=== PATIENT | female | born 1955 | race Caucasian/White ===

== ENCOUNTER 2020-06-05 10:12 | Outpatient (REF) | payer OTHER, SELFPAY ==
--- NOTE | 2020-06-05 | US_ITS ---
EXAMINATION: US PELVIS, COMPLETE CLINICAL INFORMATION: Vaginal bleeding. COMPARISON: None TECHNIQUE: Transabdominal imaging of pelvis was performed. FINDINGS: The uterus is anteverted, normal size and echogenicity measuring 10.8 x 4.7 x 6.7 cm. A regular homogeneous endometrium is identified measuring 1.8 cm. The cervix is normal. Both ovaries are of normal size and echogenicity. The right ovary measures 3.3 x 2.1 x 2.4 cm for a volume of 8.8 mL. The left ovary is not visualized. There is no pelvic free fluid. IMPRESSION: Unremarkable uterus and right ovary. The left ovary is not seen.
[2020-06-05 11:31] LABS: Estimated Average Glucose 212 mg/dL
[2020-06-05 12:00] LABS: Alanine Aminotransferase 9 U/L (0-31); Anion Gap 13 (12-20); Blood Urea Nitrogen 43 mg/dL (9-16); Carbon Dioxide 27 mmol/L (22-29); Chloride 106 mmol/L (96-108); Cholesterol 123 mg/dL; Estimated Glomerular Filt Rate 29; Glucose Fasting 93 mg/dL (60-99); HDL Cholesterol 37 mg/dL; LDL Cholesterol Calculated 70 mg/dl; Potassium 5.1 mmol/l (3.3-5.1); Sodium 141 mmol/L (135-145); Triglycerides 81 mg/dL
[2020-06-05 15:23] LABS: Creatinine Urine 98.39 mg/dL; Microalbum/Creatinine Ratio Ur 181.9 ug/mg cr
== END 2020-06-05 10:13 | disposition home or self-care (01) ==
LOC: HO.HMGCX 10:12
PROVIDERS: PCP Family Medicine; Visit Provider Family Medicine
DX: N93.9 Abnormal uterine and vaginal bleeding, unspecified (principal); I10 Essential (primary) hypertension; E11.9 Type 2 diabetes mellitus without complications; E78.00 Pure hypercholesterolemia, unspecified; Z90.721 Acquired absence of ovaries, unilateral; Z79.899 Other long term (current) drug therapy
CPT/HCPCS: 36415; 76856; 80051; 80061; 82043; 82550; 82565; 82947; 83036; 84460; 84520

== ENCOUNTER 2020-06-10 10:23 | Outpatient (REF) | payer OTHER, SELFPAY ==
--- NOTE | 2020-06-10 | XR_ITS ---
EXAMINATION: XR CHEST CLINICAL INFORMATION: Shortness of breath COMPARISON: Previous chest x-ray July 2017 TECHNIQUE: 2 views of the chest were obtained. FINDINGS: The cardiac silhouette is slightly enlarged. Hilar and mediastinal contours are unremarkable. The lungs are clear. There is no pleural effusion or pneumothorax. There are degenerative changes of the spine. IMPRESSION: Slightly enlarged cardiac silhouette. Otherwise unremarkable exam.
[2020-06-10 13:52] LABS: MANUAL DIFF FLAG NO
[2020-06-10 13:56] LABS: Basophils Percent Auto 0.6 % (0-2); Eosinophils Absolute Auto 0.2 X10*3/uL (0.0-0.4); Eosinophils Percent Auto 3.3 % (0-4); Hematocrit 23.5 % (37-47); Imm Gran Abs Auto 0.02 X10*3/uL (0.00-0.03); Imm Gran Pct Auto 0.3 % (0.0-0.4); Lymphocytes Absolute Auto 1.2 X10*3/uL (1.2-4.9); Lymphocytes Percent Auto 19.2 % (20-40); Mean Corpuscular HGB Conc 27.2 g/dl (31.0-35.0); Mean Corpuscular Hemoglobin 20.5 pg (27.0-33.0); Mean Corpuscular Volume 75.3 fL (80-98); Mean Platelet Volume 10.4 fL (9.4-12.3); Monocytes Absolute Auto 0.5 X10*3/uL (0.1-1.2); Monocytes Percent Auto 7.3 % (2-11); Neutrophils Absolute Auto 4.4 X10*3/uL (2.0-8.3); Neutrophils Percent Auto 69.3 % (45-73); Platelet Count 322 X10*3/uL (160-400); Red Blood Count 3.12 X10*6/uL (4.20-5.50); Red Cell Distribution Width 17.7 % (11.0-16.0); White Blood Count 6.4 X10*3/uL (4.8-10.8)
[2020-06-10 14:12] LABS: Hemoglobin 6.4 g/dl (12.0-16.0)
== END 2020-06-10 10:24 | disposition home or self-care (01) ==
LOC: HO.HMGCLDS 10:23
PROVIDERS: PCP Family Medicine; Visit Provider Family Medicine
DX: R06.02 Shortness of breath (principal); N93.9 Abnormal uterine and vaginal bleeding, unspecified
CPT/HCPCS: 36415; 71046; 85025; 85060

== ENCOUNTER 2020-06-10 15:07 | Inpatient (IN) | payer OTHER, SELFPAY ==
[2020-06-10] VITALS (8 sets, daily range): BP systolic 158–180; BP diastolic 54–75; PULSE 60–75; RESP 14–20; TEMP 36.7–37; O2SAT 94–96; BMI 52.4
--- NOTE | 2020-06-10 16:06 | ECG_ITS ---
Test Reason : DYSPNEA Blood Pressure : / mmHG Vent. Rate : 074 BPM Atrial Rate : 074 BPM P-R Int : 160 ms QRS Dur : 082 ms QT Int : 398 ms P-R-T Axes : 041 011 022 degrees QTc Int : 441 ms Normal sinus rhythm Normal ECG When compared with ECG of 14-JUL-2017 12:13, No significant change was found Referred By: Nohelia Villa Electronically Signed By:MARCI GRAVES MD
[2020-06-10 16:25] LABS: MANUAL DIFF FLAG NO
[2020-06-10 16:29] LABS: Basophils Absolute Auto 0.1 X10*3/uL (0.0-0.2); Basophils Percent Auto 0.6 % (0-2); Eosinophils Absolute Auto 0.2 X10*3/uL (0.0-0.4); Eosinophils Percent Auto 2.1 % (0-4); Hematocrit 22.2 % (37-47); Imm Gran Abs Auto 0.03 X10*3/uL (0.00-0.03); Imm Gran Pct Auto 0.4 % (0.0-0.4); Lymphocytes Absolute Auto 1.4 X10*3/uL (1.2-4.9); Lymphocytes Percent Auto 17.8 % (20-40); Mean Corpuscular HGB Conc 27.5 g/dl (31.0-35.0); Mean Corpuscular Hemoglobin 20.4 pg (27.0-33.0); Mean Corpuscular Volume 74.2 fL (80-98); Mean Platelet Volume 9.9 fL (9.4-12.3); Monocytes Absolute Auto 0.5 X10*3/uL (0.1-1.2); Neutrophils Absolute Auto 5.9 X10*3/uL (2.0-8.3); Neutrophils Percent Auto 73.1 % (45-73); Platelet Count 301 X10*3/uL (160-400); Red Blood Count 2.99 X10*6/uL (4.20-5.50); Red Cell Distribution Width 17.8 % (11.0-16.0)
[2020-06-10 17:05] LABS: Alanine Aminotransferase 10 U/L (0-31); Albumin Level 3.7 g/dL (3.5-5.0); Alkaline Phosphatase 74 U/L (39-117); Anion Gap 12 (12-20); Aspartate Amino Transferase 10 U/L (5-31); Bilirubin Direct 0.2 mg/dL (0.0-0.5); Bilirubin Total 0.3 mg/dL (0.0-1.0); Blood Urea Nitrogen 38 mg/dL (9-16); Calcium 8.3 mg/dL (8.4-10.2); Carbon Dioxide 26 mmol/L (22-29); Chloride 106 mmol/L (96-108); Creatinine Clr Calc Pharmacy 46.5; Estimated Glomerular Filt Rate 29; Glucose Random 189 mg/dL (60-115); Lipase 15 U/L (8-78); Magnesium 2.5 mg/dL (1.6-2.6); Potassium 5.3 mmol/l (3.3-5.1); Sodium 139 mmol/L (135-145); Total Protein 6.6 g/dL (6.5-8.0)
[2020-06-10 17:07] LABS: B Type Natriuretic Peptide 273 pg/mL (<100); Troponin-I High Sensitivity 10.3 ng/L (<3.5-17.0)
--- NOTE | 2020-06-10 17:18 | ED.SOB ---
HPI - SOB/Dyspnea General Chief Complaint: Dyspnea <INES Hudson - Last Filed: 06/10/20 17:52> Stated Complaint: Vaginal Bleeding <INES Hudson - Last Filed: 06/10/20 17:52> Time Seen by Provider: 06/10/20 15:53 <INES Hudson - Last Filed: 06/10/20 17:52> Source: patient <INES Hudson - Last Filed: 06/10/20 17:52> History of Present Illness HPI Narrative: 64-year-old female with a PMHx HTN, GERD, OA, diabetes, asthma, venous insufficiency sent in by PCP for low H&H noted on outpatient labs today. Patient reports worsening SOB x a few weeks s/p episode of heavy vaginal bleeding. admits vaginal bleeding started on 05/13 lasted until 05/18, and has since been resolved. Admits to lightheadedness/generalized fatigue, and worsening LE edema. Denies fever, chills, cough, chest pain, vaginal bleeding, abdominal pain, nausea/vomiting <INES Hudson - Last Filed: 06/10/20 17:52> Related Data Home Medications: Home Medications Medication Instructions Recorded Confirmed albuterol sulfate [ProAir HFA] 2 puff PO Q4H 06/10/20 06/10/20 amlodipine 5 mg PO DAILY 06/10/20 06/10/20 atenolol 25 mg PO BID 06/10/20 06/10/20 furosemide 40 mg PO DAILY 06/10/20 06/10/20 gabapentin 300 mg PO DAILY 06/10/20 06/10/20 gabapentin 600 mg PO BEDTIME 06/10/20 06/10/20 insulin degludec [Tresiba 62 unit SUBCUT BEDTIME 06/10/20 06/10/20 FlexTouch U-200] insulin lispro [Humalog KwikPen 10 - 26 unit SUBCUT 06/10/20 Insulin] lisinopril 40 mg PO DAILY 06/10/20 06/10/20 lorazepam 0.5 mg PO Q8H PRN 06/10/20 06/10/20 meloxicam 15 mg PO DAILY 06/10/20 06/10/20 omeprazole 20 mg PO DAILY 06/10/20 06/10/20 simvastatin 40 mg PO BEDTIME 06/10/20 06/10/20 solifenacin 5 mg PO BEDTIME 06/10/20 06/10/20 Previous Rx's Medication Instructions Recorded pen needle, diabetic 32 gauge x #120 ea 06/10/20 <INES Hudson - Last Filed: 06/10/20 17:52> Allergies/Adverse Reactions: Allergies Allergy/AdvReac Type Severity Reaction Status Date / Time No Known Allergies Allergy Unverified 05/21/20 16:15 environmental Allergy Unknown Uncoded 02/17/20 00:00 <INES Hudson - Last Filed: 06/10/20 17:52> Review of Systems Review of Systems: Constitutional: No Weight loss, No Fever, No Chills, No Night Sweats, + Fatigue, + Malaise Eyes: No Eye Pain Cardiovascular: No Chest Pain, + SOB, + Dyspnea on Exertion, +Edema, No Palpitations Respiratory: No Cough, No Sputum, No Wheezing Gastrointestinal: No Nausea, No Vomiting, No Diarrhea, No Constipation, No abdominal Pain, No Hematochezia, No Melena Genitourinary: + irregular bleeding (resolevd), No Dysuria, No Urinary Frequency, No Hematuria Musculoskeletal: No joint pain, No Myalgias, No Joint Swelling Skin: No Skin Lesions, No rash Neuro: No Weakness, No Numbness, No Paresthesias, No Loss of Consciousness, +lightheadedness, No Headacheal Issues, Heme/Lymph: No Bruising, No Bleeding,No Lymphadenopathy <INES Hudson Last Filed: 06/10/20 17:52> Yes all other systems are reviewed and are negative <INES Hudson - Last Filed: 06/10/20 17:52> Neurologic: Denies Sensory deficit (Neuro) <INES Hudson Last Filed: 06/10/20 17:52> [facility] Past Medical History Attestation statement: The following information was validated with the patient. <INES Hudson Last Filed: 06/10/20 17:52> Medical History: Medical History (Updated 06/10/20 @ 19:06 by INES Smith) Arthritis Asthma Diabetes mellitus with hyperglycemia GERD (gastroesophageal reflux disease) HTN (hypertension) Hyperlipemia Kidney stones Osteoarthritis Peripheral neuropathy <INES Hudson - Last Filed: 06/10/20 17:52> Surgical History: Surgical History (Updated 06/10/20 @ 15:39 by Myrtle Villaseñor) History of appendectomy <INES Hudson - Last Filed: 06/10/20 17:52> Family History Family History: Family History (Updated 06/10/20 @ 19:06 by INES Smith) Mother Glioblastoma <INES Hudson - Last Filed: 06/10/20 17:52> Social History Social History: Social History Household Members: Family Housing: Apartment Do you presently have visiting nurse or other home services: No Smoking Status: Former smoker Smoked in Last 30 Days: No Use of substances other than those prescribed or required for medical reasons: No Currently Displaying Signs/Symptoms of Drug Intoxication Withdrawal: No Advance Directives: No Advance Directives Information Provided: Yes Do you have thoughts of harming others: None Recently lost weight without trying: No <INES Hudson Last Filed: 06/10/20 17:52> Physical Exam Vital Signs and I&O and Narrative: Vital Signs and I&O: Vital Signs Temp 98.1 F 06/11/20 02:05 Pulse 68 06/11/20 02:05 Resp 18 06/11/20 02:05 BP 168/73 H 06/11/20 02:05 Pulse Ox 93 06/11/20 00:00 Intake & Output 06/10/20 06/10/20 06/11/20 06:59 18:59 06:59 Weight 142.882 kg Body Mass Index 52.4 <INES Hudson - Last Filed: 06/10/20 17:52> Vital Signs and I&O: Vital Signs Temp 98.1 F 06/11/20 02:05 Pulse 68 06/11/20 02:05 Resp 18 06/11/20 02:05 BP 168/73 H 06/11/20 02:05 Pulse Ox 93 06/11/20 00:00 Intake & Output 06/10/20 06/10/20 06/11/20 06:59 18:59 06:59 Weight 142.882 kg Body Mass Index 52.4 <Porfirio Ho DO - Last Filed: 06/11/20 02:25> Const: Other: pale <Nohelia Villa [facility] Last Filed: 06/10/20 17:52> General: cooperative <Nohelia Villa [facility] Last Filed: 06/10/20 17:52> Nutritional Appearance: obese and Edematous <Nohelia Villa [facility] Last Filed: 06/10/20 17:52> Orientation/consciousness: patient oriented x3 <Nohelia Villa [facility] Last Filed: 06/10/20 17:52> HENMT: Head: Yes normal to inspection <Nohelia Villa [facility] Last Filed: 06/10/20 17:52> Ears: hearing grossly normal bilaterally <Nohelia Villa NE - Last Filed: 06/10/20 17:52> General nose exam: Normal external nose present <Nohelia Villa [facility] Last Filed: 06/10/20 17:52> Face and sinus: Yes normal facial exam <Nohelia Villa [facility] Last Filed: 06/10/20 17:52> Eyes: General: appearance normal, both eyes and all related structures <Nohelia Villa [facility] Last Filed: 06/10/20 17:52> EOM: EOMs intact bilaterally <Nohelia Villa [facility] Last Filed: 06/10/20 17:52> Neck: Neck: Yes normal visual inspection <Nohelia Villa [facility] Last Filed: 06/10/20 17:52> Resp: Effort & Inspection: normal respiratory effort and no stridor <Nohelia Villa [facility] Last Filed: 06/10/20 17:52> Auscultation: clear to auscultation bilaterally, no rales and no wheezes <Nohelia Villa [facility] Last Filed: 06/10/20 17:52> Cardio: Rate: regular rate <Nohelia Villa [facility] Last Filed: 06/10/20 17:52> Heart sounds: S1 normal heart sound present and S2 normal heart sound present <Nohelia Villa [facility] Last Filed: 06/10/20 17:52> GI: Inspection: Yes normal to inspection <Nohelia Villa [facility] Last Filed: 06/10/20 17:52> Palpation (GI): Soft to palpation, nontender, no guarding and not rigid <INES Hudson - Last Filed: 06/10/20 17:52> Skin: General skin exam: pallor <INES Hudson Last Filed: 06/10/20 17:52> Wounds: no wounds <INES Hudson - Last Filed: 06/10/20 17:52> Neuro: General: patient oriented x3 <INES Hudson - Last Filed: 06/10/20 17:52> Sensory Exam: No Sensory deficit (Neuro) <INES Hudson Last Filed: 06/10/20 17:52> Extrem: General: Yes normal to inspection and Yes edema ( bilateral lower extremities) <INES Hudson Last Filed: 06/10/20 17:52> Course Course Course Narrative: CXR today showing slightly enlarged cardiac silhouette. Otherwise unremarkable H&H low at 6 0.1/22.2, creatinine elevated 1.76 likely from anemia BNP elevated 273, initial troponin 10.3> will obtain 3 hour repeat plan for admission to receive 2 units RBCs watch and observe for CHF <INES Hudson - Last Filed: 06/10/20 17:52> MDM - SOB/Dyspnea MDM Narrative Medical decision making narrative: 64-year-old female with a PMHx HTN, GERD, OA, diabetes, asthma, venous insufficiency sent in by PCP for low H&H noted on outpatient labs today. On exam VSS, NAD, pale, abdomen soft/nontender, bilateral lower extremity edema. Concern for anemia due to blood loss vs ? occult malignancy vs CHF. Low concern for ACS / PE/pneumonia/ viral syndrome. Low concern for GI bleed plan: EKG, labs, CXR, transfusion, reassess Consent for blood transfusion signed and in chart <INES Hudson Last Filed: 06/10/20 17:52> Differential Diagnosis Differential diagnosis: Likely congestive heart failure, asthma with exacerbation, pleural effusion, sleep apnea and anemia <INES Hudson Last Filed: 06/10/20 17:52> Medical Records Attestation: I reviewed the patient's medical records. <INES Hudson Last Filed: 06/10/20 17:52> Lab Data Result diagrams: : 06/10/20 16:22 06/10/20 16:22 <INES Hudson - Last Filed: 06/10/20 17:52> Labs: Lab Results 06/10/20 06/10/20 06/10/20 Range/Units 16:22 16:22 16:22 WBC 8.0 (4.8-10.8) X10*3/uL RBC 2.99 L (4.20-5.50) X10*6/uL Hgb 6.1 L* (12.0-16.0) g/dl Hct 22.2 L (37-47) % MCV 74.2 L (80-98) fL MCH 20.4 L (27.0-33.0) pg MCHC 27.5 L (31.0-35.0) g/dl RDW 17.8 H (11.0-16.0) % Plt Count 301 (160-400) X10*3/uL MPV 9.9 (9.4-12.3) fL Immature Gran % (Auto) 0.4 (0.0-0.4) % Neut % (Auto) 73.1 H (45-73) % Lymph % (Auto) 17.8 L (20-40) % [place] % (Auto) 6.0 (2-11) % Eos % (Auto) 2.1 (0-4) % Baso % (Auto) 0.6 (0-2) % Lymph # (Auto) 1.4 (1.2-4.9) X10*3/uL [place] # (Auto) 0.5 (0.1-1.2) X10*3/uL Eos # (Auto) 0.2 (0.0-0.4) X10*3/uL Baso # (Auto) 0.1 (0.0-0.2) X10*3/uL Abs Immat Gran (auto) 0.03 (0.00-0.03) X10*3/uL Absolute Neuts (auto) 5.9 (2.0-8.3) X10*3/uL Absolute Nucleated RBC 0.000 (0.0-0.012) X10*3/uL Nucleated RBC % (auto) 0.0 (0.0-0.2) /100WBC Sodium 139 (135-145) mmol/L Potassium 5.3 H (3.3-5.1) mmol/l Chloride 106 (96-108) mmol/L Carbon Dioxide 26 (22-29) mmol/L Anion Gap 12 (12-20) BUN 38 H (9-16) mg/dL Creatinine 1.76 H (0.5-1.4) mg/dL Estim Creat Clear Calc 46.5 Estimated GFR 29 POC Glucose (60-115) mg/dL Random Glucose 189 H (60-115) mg/dL Calcium 8.3 L (8.4-10.2) mg/dL Magnesium 2.5 (1.6-2.6) mg/dL Total Bilirubin 0.3 (0.0-1.0) mg/dL Direct Bilirubin 0.2 (0.0-0.5) mg/dL AST 10 (5-31) U/L ALT 10 (0-31) U/L Alkaline Phosphatase 74 (39-117) U/L Lactate Dehydrogenase 215 (122-220) U/L Troponin I High Sens 10.3 (<3.5-17.0) ng/L B-Natriuretic Peptide 273 H (<100) pg/mL Total Protein 6.6 (6.5-8.0) g/dL Albumin 3.7 (3.5-5.0) g/dL Lipase 15 (8-78) U/L Blood Type Antibody Screen Crossmatch 06/10/20 06/10/20 06/10/20 Range/Units 17:05 17:48 18:49 WBC (4.8-10.8) X10*3/uL RBC (4.20-5.50) X10*6/uL Hgb (12.0-16.0) g/dl Hct (37-47) % MCV (80-98) fL MCH (27.0-33.0) pg MCHC (31.0-35.0) g/dl RDW (11.0-16.0) % Plt Count (160-400) X10*3/uL MPV (9.4-12.3) fL Immature Gran % (Auto) (0.0-0.4) % Neut % (Auto) (45-73) % Lymph % (Auto) (20-40) % [place] % (Auto) (2-11) % Eos % (Auto) (0-4) % Baso % (Auto) (0-2) % Lymph # (Auto) (1.2-4.9) X10*3/uL [place] # (Auto) (0.1-1.2) X10*3/uL Eos # (Auto) (0.0-0.4) X10*3/uL Baso # (Auto) (0.0-0.2) X10*3/uL Abs Immat Gran (auto) (0.00-0.03) X10*3/uL Absolute Neuts (auto) (2.0-8.3) X10*3/uL Absolute Nucleated RBC (0.0-0.012) X10*3/uL Nucleated RBC % (auto) (0.0-0.2) /100WBC Sodium (135-145) mmol/L Potassium (3.3-5.1) mmol/l Chloride (96-108) mmol/L Carbon Dioxide (22-29) mmol/L Anion Gap (12-20) BUN (9-16) mg/dL Creatinine (0.5-1.4) mg/dL Estim Creat Clear Calc Estimated GFR POC Glucose 141 H (60-115) mg/dL Random Glucose (60-115) mg/dL Calcium (8.4-10.2) mg/dL Magnesium (1.6-2.6) mg/dL Total Bilirubin (0.0-1.0) mg/dL Direct Bilirubin (0.0-0.5) mg/dL AST (5-31) U/L ALT (0-31) U/L Alkaline Phosphatase (39-117) U/L Lactate Dehydrogenase (122-220) U/L Troponin I High Sens 11.1 (<3.5-17.0) ng/L B-Natriuretic Peptide (<100) pg/mL Total Protein (6.5-8.0) g/dL Albumin (3.5-5.0) g/dL Lipase (8-78) U/L Blood Type A Positive Antibody Screen NEGATIVE Crossmatch See Detail <INES Hudson - Last Filed: 06/10/20 17:52> Lab Results 06/10/20 06/10/20 06/10/20 Range/Units 16:22 16:22 16:22 WBC 8.0 (4.8-10.8) X10*3/uL RBC 2.99 L (4.20-5.50) X10*6/uL Hgb 6.1 L* (12.0-16.0) g/dl Hct 22.2 L (37-47) % MCV 74.2 L (80-98) fL MCH 20.4 L (27.0-33.0) pg MCHC 27.5 L (31.0-35.0) g/dl RDW 17.8 H (11.0-16.0) % Plt Count 301 (160-400) X10*3/uL MPV 9.9 (9.4-12.3) fL Immature Gran % (Auto) 0.4 (0.0-0.4) % Neut % (Auto) 73.1 H (45-73) % Lymph % (Auto) 17.8 L (20-40) % [place] % (Auto) 6.0 (2-11) % Eos % (Auto) 2.1 (0-4) % Baso % (Auto) 0.6 (0-2) % Lymph # (Auto) 1.4 (1.2-4.9) X10*3/uL [place] # (Auto) 0.5 (0.1-1.2) X10*3/uL Eos # (Auto) 0.2 (0.0-0.4) X10*3/uL Baso # (Auto) 0.1 (0.0-0.2) X10*3/uL Abs Immat Gran (auto) 0.03 (0.00-0.03) X10*3/uL Absolute Neuts (auto) 5.9 (2.0-8.3) X10*3/uL Absolute Nucleated RBC 0.000 (0.0-0.012) X10*3/uL Nucleated RBC % (auto) 0.0 (0.0-0.2) /100WBC Sodium 139 (135-145) mmol/L Potassium 5.3 H (3.3-5.1) mmol/l Chloride 106 (96-108) mmol/L Carbon Dioxide 26 (22-29) mmol/L Anion Gap 12 (12-20) BUN 38 H (9-16) mg/dL Creatinine 1.76 H (0.5-1.4) mg/dL Estim Creat Clear Calc 46.5 Estimated GFR 29 POC Glucose (60-115) mg/dL Random Glucose 189 H (60-115) mg/dL Calcium 8.3 L (8.4-10.2) mg/dL Magnesium 2.5 (1.6-2.6) mg/dL Total Bilirubin 0.3 (0.0-1.0) mg/dL Direct Bilirubin 0.2 (0.0-0.5) mg/dL AST 10 (5-31) U/L ALT 10 (0-31) U/L Alkaline Phosphatase 74 (39-117) U/L Lactate Dehydrogenase 215 (122-220) U/L Troponin I High Sens 10.3 (<3.5-17.0) ng/L B-Natriuretic Peptide 273 H (<100) pg/mL Total Protein 6.6 (6.5-8.0) g/dL Albumin 3.7 (3.5-5.0) g/dL Lipase 15 (8-78) U/L Blood Type Antibody Screen Crossmatch 06/10/20 06/10/20 06/10/20 Range/Units 17:05 17:48 18:49 WBC (4.8-10.8) X10*3/uL RBC (4.20-5.50) X10*6/uL Hgb (12.0-16.0) g/dl Hct (37-47) % MCV (80-98) fL MCH (27.0-33.0) pg MCHC (31.0-35.0) g/dl RDW (11.0-16.0) % Plt Count (160-400) X10*3/uL MPV (9.4-12.3) fL Immature Gran % (Auto) (0.0-0.4) % Neut % (Auto) (45-73) % Lymph % (Auto) (20-40) % [place] % (Auto) (2-11) % Eos % (Auto) (0-4) % Baso % (Auto) (0-2) % Lymph # (Auto) (1.2-4.9) X10*3/uL [place] # (Auto) (0.1-1.2) X10*3/uL Eos # (Auto) (0.0-0.4) X10*3/uL Baso # (Auto) (0.0-0.2) X10*3/uL Abs Immat Gran (auto) (0.00-0.03) X10*3/uL Absolute Neuts (auto) (2.0-8.3) X10*3/uL Absolute Nucleated RBC (0.0-0.012) X10*3/uL Nucleated RBC % (auto) (0.0-0.2) /100WBC Sodium (135-145) mmol/L Potassium (3.3-5.1) mmol/l Chloride (96-108) mmol/L Carbon Dioxide (22-29) mmol/L Anion Gap (12-20) BUN (9-16) mg/dL Creatinine (0.5-1.4) mg/dL Estim Creat Clear Calc Estimated GFR POC Glucose 141 H (60-115) mg/dL Random Glucose (60-115) mg/dL Calcium (8.4-10.2) mg/dL Magnesium (1.6-2.6) mg/dL Total Bilirubin (0.0-1.0) mg/dL Direct Bilirubin (0.0-0.5) mg/dL AST (5-31) U/L ALT (0-31) U/L Alkaline Phosphatase (39-117) U/L Lactate Dehydrogenase (122-220) U/L Troponin I High Sens 11.1 (<3.5-17.0) ng/L B-Natriuretic Peptide (<100) pg/mL Total Protein (6.5-8.0) g/dL Albumin (3.5-5.0) g/dL Lipase (8-78) U/L Blood Type A Positive Antibody Screen NEGATIVE Crossmatch See Detail <Porfirio Ho DO - Last Filed: 06/11/20 02:25> Discharge Plan Discharge Clinical Impression: Anemia <INES Hudson - Last Filed: 06/10/20 17:52> Patient Disposition: Admitted as Observation <INES Hudson - Last Filed: 06/10/20 17:52> Interventions: Admission Worksheet (ED) Last Done: 06/10/20 20:13 <INES Hudson - Last Filed: 06/10/20 17:52> Discharge Date/Time: 06/10/20 20:15 <INES Hudson - Last Filed: 06/10/20 17:52>
[2020-06-10 18:32] LABS: Troponin-I High Sensitivity 11.1 ng/L (<3.5-17.0)
[2020-06-10 18:38] LABS: Lactate Dehydrogenase 215 U/L (122-220)
[2020-06-10 18:52] LABS: Glucose, Whole Blood 141 mg/dL (60-115)
--- NOTE | 2020-06-10 18:56 | PM.EVENT ---
Event Note Event Note: Admission Note Patient seen and examined. Case discussed with INES Apple. Agree with her history and physical. in brief, 64-year-old female who presents to the hospital with complaints of progressive dyspnea on exertion. Not found to be significantly anemic, reports that she had heavy vaginal bleeding for 7 days last month which has since subsided. No active vaginal bleeding at this time. will transfuse packed red cells and give IV Lasix in between. 2d echo remainder per H&P
--- NOTE | 2020-06-10 19:00 | P.HPIM_ITS ---
History of Present Illness Date of Service: 06/10/20 <INES Smith - Last Filed: 06/10/20 20:36> Chief Complaint: dyspnea <INES Smith - Last Filed: 06/10/20 20:36> this is a 64-year-old female who presents to the emergency department with shortness of breath. Patient reports heavy vaginal bleeding from May 11 to May 18. during that time she was changing her pad hourly. Her father on May 11 and therefore she did not initially seek medical treatment. After her father's she called her primary care physician and had outpatient labs as well as pelvic ultrasound. she has continued to have shortness of breath and a CBC was done today. Her PCP called her and told her to come to the emergency department due to anemia. Her H/ H was noted to be 6.1 /22.2. She denies any vaginal bleeding since May 18. In the emergency department she was also noted to have some leg edema and BNP of 273. her potassium was mildly elevated at 5.3. She was noted to be in mild acute kidney injury with creatinine of 1.76. <INES Smith - Last Filed: 06/10/20 20:36> Review of Systems Review of Systems: Yes all other systems are reviewed and are negative <INES Smith - Last Filed: 06/10/20 20:36> Constitutional: Constitutional: Denies chills and Denies fever(s) <INES Smith - Last Filed: 06/10/20 20:36> Cardiovascular: Cardiovascular: Denies chest pain and Denies dyspnea <INES Smith - Last Filed: 06/10/20 20:36> Respiratory: Respiratory: Denies dyspnea <INES Smith - Last Filed: 06/10/20 20:36> Gastrointestinal: Gastrointestinal: Denies abdominal pain <INES Smith Last Filed: 06/10/20 20:36> Neurologic: Denies Sensory deficit (Neuro) <INES Smith Last Filed: 06/10/20 20:36> [facility] Medical History: Medical History (Updated 06/10/20 @ 19:06 by INES Smith) Arthritis Asthma Diabetes mellitus with hyperglycemia GERD (gastroesophageal reflux disease) HTN (hypertension) Hyperlipemia Kidney stones Osteoarthritis Peripheral neuropathy <INES Smith - Last Filed: 06/10/20 20:36> Family History: Family History (Updated 06/10/20 @ 19:06 by INES Smith) Mother Glioblastoma <INES Smith - Last Filed: 06/10/20 20:36> Surgical History: Surgical History (Updated 06/10/20 @ 15:39 by Myrtle Villaseñor) History of appendectomy <INES Smith - Last Filed: 06/10/20 20:36> Social History: Social History Household Members: Family Housing: Apartment Do you presently have visiting nurse or other home services: No Smoking Status: Former smoker Smoked in Last 30 Days: No Use of substances other than those prescribed or required for medical reasons: No Currently Displaying Signs/Symptoms of Drug Intoxication Withdrawal: No Advance Directives: No Advance Directives Information Provided: Yes Do you have thoughts of harming others: None Recently lost weight without trying: No service: No Current occupational status: employed <INES Smith - Last Filed: 06/10/20 20:36> Meds Allergies/Adverse reactions: Allergies Allergy/AdvReac Type Severity Reaction Status Date / Time No Known Allergies Allergy Unverified 05/21/20 16:15 environmental Allergy Unknown Uncoded 02/17/20 00:00 <INES Smith - Last Filed: 06/10/20 20:36> Home medications: Home Medications Medication Instructions Recorded Confirmed Type Tresiba FlexTouch U-200 62 unit SUBCUT BEDTIME 06/10/20 06/10/20 History albuterol sulfate [ProAir HFA] 2 puff PO Q4H 06/10/20 06/10/20 History amlodipine 5 mg PO DAILY 06/10/20 06/10/20 History atenolol 25 mg PO BID 06/10/20 06/10/20 History furosemide 40 mg PO DAILY 06/10/20 06/10/20 History gabapentin 300 mg PO DAILY 06/10/20 06/10/20 History gabapentin 600 mg PO BEDTIME 06/10/20 06/10/20 History insulin lispro [Humalog KwikPen 10 - 26 unit SUBCUT 06/10/20 History Insulin] lisinopril 40 mg PO DAILY 06/10/20 06/10/20 History lorazepam 0.5 mg PO Q8H PRN 06/10/20 06/10/20 History meloxicam 15 mg PO DAILY 06/10/20 06/10/20 History omeprazole 20 mg PO DAILY 06/10/20 06/10/20 History simvastatin 40 mg PO BEDTIME 06/10/20 06/10/20 History solifenacin 5 mg PO BEDTIME 06/10/20 06/10/20 History <INES Smith Last Filed: 06/10/20 20:36> Physical Exam Vital Signs and Narrative: Vital Signs: Last Vital Signs Temp 98.1 F 06/10/20 17:32 Pulse 75 06/10/20 17:32 Resp 16 06/10/20 17:32 BP 165/54 H 06/10/20 17:32 Pulse Ox 94 06/10/20 17:32 Body Mass Index 52.4 <INES Smith - Last Filed: 06/10/20 20:36> Const: Nutritional Appearance: obese <INES Smith Last Filed: 06/10/20 20:36> Orientation/consciousness: patient oriented x3 <INES Smith Last Filed: 06/10/20 20:36> HENMT: Head: Yes normocephalic and Yes atraumatic <INES Smith Last Filed: 06/10/20 20:36> Eyes: Sclerae: sclerae normal <INES Smith Last Filed: 06/10/20 20:36> Chest: Chest palpation & inspection: normal inspection of the chest <INES Smith Last Filed: 06/10/20 20:36> Resp: Effort & Inspection: normal respiratory effort and no respiratory distress <INES Smith Last Filed: 06/10/20 20:36> Auscultation: clear to auscultation bilaterally <INES Smith Last Filed: 06/10/20 20:36> Cardio: Rate: regular rate <INES Smith - Last Filed: 06/10/20 20:36> Rhythm: regular rhythm <INES Smith - Last Filed: 06/10/20 20:36> GI: Palpation (GI): Soft to palpation and nontender <INES Smith - Last Filed: 06/10/20 20:36> Skin: Other: mild erythema anterior shins <INES Smith - Last Filed: 06/10/20 20:36> Neuro: General: patient oriented x3 <INES Smith - Last Filed: 06/10/20 20:36> Cranial nerves: Yes CN's II-XII intact bilaterally and Yes Bilaterally intact EOM present <INES Smith - Last Filed: 06/10/20 20:36> Sensory Exam: No Sensory deficit (Neuro) <INES Smith - Last Filed: 06/10/20 20:36> Extrem: Right lower extremity: edema <INES Smith - Last Filed: 06/10/20 20:36> Left lower extremity: edema <INES Smith - Last Filed: 06/10/20 20:36> Results Labs Labs: Laboratory Tests 06/10/20 06/10/20 06/10/20 16:22 16:22 16:22 WBC 8.0 RBC 2.99 L Hgb 6.1 L* Hct 22.2 L MCV 74.2 L MCH 20.4 L MCHC 27.5 L RDW 17.8 H Plt Count 301 MPV 9.9 Immature Gran % (Auto) 0.4 Neut % (Auto) 73.1 H Lymph % (Auto) 17.[address] [facility] % (Auto) 6.0 Eos % (Auto) 2.1 Baso % (Auto) 0.6 Lymph # (Auto) 1.4 [facility] # (Auto) 0.5 Eos # (Auto) 0.2 Baso # (Auto) 0.1 Abs Immat Gran (auto) 0.03 Absolute Neuts (auto) 5.9 Absolute Nucleated RBC 0.000 Nucleated RBC % (auto) 0.0 Sodium 139 Potassium 5.3 H Chloride 106 Carbon Dioxide 26 Anion Gap 12 BUN 38 H Creatinine 1.76 H Estim Creat Clear Calc 46.5 Estimated GFR 29 POC Glucose Random Glucose 189 H Calcium 8.3 L Magnesium 2.5 Total Bilirubin 0.3 Direct Bilirubin 0.2 AST 10 ALT 10 Alkaline Phosphatase 74 Lactate Dehydrogenase 215 Troponin I High Sens 10.3 B-Natriuretic Peptide 273 H Total Protein 6.6 Albumin 3.7 Lipase 15 Blood Type Antibody Screen Crossmatch 06/10/20 06/10/20 06/10/20 17:05 17:48 18:49 WBC RBC Hgb Hct MCV MCH MCHC RDW Plt Count MPV Immature Gran % (Auto) Neut % (Auto) Lymph % (Auto) [facility] % (Auto) Eos % (Auto) Baso % (Auto) Lymph # (Auto) [facility] # (Auto) Eos # (Auto) Baso # (Auto) Abs Immat Gran (auto) Absolute Neuts (auto) Absolute Nucleated RBC Nucleated RBC % (auto) Sodium Potassium Chloride Carbon Dioxide Anion Gap BUN Creatinine Estim Creat Clear Calc Estimated GFR POC Glucose 141 H Random Glucose Calcium Magnesium Total Bilirubin Direct Bilirubin AST ALT Alkaline Phosphatase Lactate Dehydrogenase Troponin I High Sens 11.1 B-Natriuretic Peptide Total Protein Albumin Lipase Blood Type A Positive Antibody Screen NEGATIVE Crossmatch See Detail <INES Smith - Last Filed: 06/10/20 20:36> Assessment and Plan (1) Anemia: Status: Acute <INES Smith - Last Filed: 06/10/20 20:36> this is a 64-year-old female with a history of diabetes, dyslipidemia, hypertension sent to the emergency department for shortness of breath and anemia. Symptomatic anemia related to recent vaginal bleeding. no active bleeding at this time - 2 units rbs - follow cbc Dyspna likely r/t anemia and possible CHF -IV lasix between units of blood -echo DM. -SSI, POCs -home meds when med rec done ATTILA SCr 1.76. BL 1.1-1.2 In light of concern over CHF and need for blood, will hold off on IV fluids at this time -Hold lisinopril -follow renal function closely hyperkalemia, mild K 5.3 - hold lisinopril - repeat in am morbid obesity BMI 52.4 home medications for neuropathy, GERD, hypertension, dyslipidemia will be managed once med reconciliation has been completed DVT prophylaxis- mechanical devices code status- full code this case was discussed with Dr. Marin <INES Smith - Last Filed: 06/10/20 20:36>
--- NOTE | 2020-06-10 19:23 | PC.NURSE ---
Assumed care of pt. Pt awaiting for orders and room assignment. Pt alert, respirations easy, n/l. skin w/d. Pt denies any complaints at this time. Will continue to monitor pt.
--- NOTE | 2020-06-10 19:39 | PC.NURSE ---
[facility] unable to take report, will return call.
--- NOTE | 2020-06-10 19:58 | PC.NURSE ---
REPORT GIVEN TO FLOOR.
--- NOTE | 2020-06-10 20:09 | PC.NURSE ---
bLOOD CONSCENT SIGNED. PT IN WC WITH BELONGINGS.
[2020-06-10 20:46] LABS: Glucose, Whole Blood 148 mg/dL (60-115)
[2020-06-10] MEDS: 0.9 % Sodium Chloride Flush 3 ML SYRINGE 2 ML IVFLUSH (23:55)
[2020-06-11] VITALS (18 sets, daily range): BP systolic 114–187; BP diastolic 60–84; PULSE 62–85; RESP 18–68; TEMP 36.2–37.1; O2SAT 92–98; BMI 52.4
[2020-06-11] MEDS: Furosemide 20 MG/2 ML VIAL IVPUSH ×2 (01:59→18:49)
[2020-06-11 06:47] LABS: MANUAL DIFF FLAG NO
[2020-06-11 06:52] LABS: Basophils Absolute Auto 0.1 X10*3/uL (0.0-0.2); Basophils Percent Auto 0.8 % (0-2); Eosinophils Absolute Auto 0.2 X10*3/uL (0.0-0.4); Eosinophils Percent Auto 3.2 % (0-4); Hemoglobin 7.2 g/dl (12.0-16.0); Imm Gran Abs Auto 0.02 X10*3/uL (0.00-0.03); Imm Gran Pct Auto 0.3 % (0.0-0.4); Lymphocytes Absolute Auto 1.6 X10*3/uL (1.2-4.9); Lymphocytes Percent Auto 23.9 % (20-40); Mean Corpuscular HGB Conc 28.8 g/dl (31.0-35.0); Mean Corpuscular Hemoglobin 22.1 pg (27.0-33.0); Mean Corpuscular Volume 76.7 fL (80-98); Mean Platelet Volume 10.3 fL (9.4-12.3); Monocytes Absolute Auto 0.5 X10*3/uL (0.1-1.2); Monocytes Percent Auto 7.2 % (2-11); Neutrophils Absolute Auto 4.2 X10*3/uL (2.0-8.3); Neutrophils Percent Auto 64.6 % (45-73); Platelet Count 308 X10*3/uL (160-400); Red Blood Count 3.26 X10*6/uL (4.20-5.50); Red Cell Distribution Width 18.8 % (11.0-16.0); White Blood Count 6.5 X10*3/uL (4.8-10.8)
[2020-06-11 07:21] LABS: Anion Gap 13 (12-20); Blood Urea Nitrogen 32 mg/dL (9-16); Calcium 8.1 mg/dL (8.4-10.2); Carbon Dioxide 26 mmol/L (22-29); Chloride 106 mmol/L (96-108); Creatinine Clr Calc Pharmacy 54.6; Estimated Glomerular Filt Rate 35; Glucose Random 251 mg/dL (60-115); Sodium 140 mmol/L (135-145)
[2020-06-11 07:54] LABS: Glucose, Whole Blood 163 mg/dL (60-115)
[2020-06-11 07:56] LABS: Immature Retic Fraction 8.5 % (3.0-15.9); Retic HGB Equivalent 14.3 pg (30.0-35.0); Reticulocyte Percent 2.1 % (0.5-1.8); Reticulocytes Absolute 0.063 X10*6/uL (0.026-0.095)
[2020-06-11] MEDS: Insulin Lispro 100 UNIT/ML 3 ML VIAL SUBCUT ×3 (08:15→16:43)
[2020-06-11] MEDS: amLODIPine Besylate 5 MG TABLET PO (08:16)
[2020-06-11] MEDS: 0.9 % Sodium Chloride Flush 3 ML SYRINGE 2 ML IVFLUSH ×3 (08:16→21:15)
[2020-06-11] MEDS: atenoloL 25 MG TABLET PO ×2 (08:16→21:14)
[2020-06-11] MEDS: Gabapentin 300 MG CAPSULE PO (08:16)
--- NOTE | 2020-06-11 11:12 | P.CDIC_ITS ---
CDI Concurrent Query Service Date: 06/11/20 Documentation Clarification: Please clarify if you are treating a proba ble/suspected/likely or confirmed: Chronic diastolic and/or systolic congestive heart failure Acute on chronic diastolic and/or systolic congestive heart failure Please specify if known or undertermined Undetermined, being worked up Provider Response: Other Other Diagnosis: being worked up PLEASE DO NOT DELETE/MODIFY EXISTING CONTENT Additional information is needed in order to code to the highest accuracy and appropriate Severity of Illness (SOI). Please clarify the information noted below in your progress notes and discharge summary. Risk Factors/Clinical Indicators/Treatments ED: Assessment -concern for anemia due to blood loss vs occult malignancy vs CHF. IV lasix given between units of blood. Observe CHF. BNP 273 H H&P: Assessment - dyspnea, likely d/t anemia and possible CHF. Home medication: Furosemide 40 mg PO daily. History of echo performed. CDS: Dulce De La Cruz CCS, CDIS Contact Number: [phone] Please Review the information above and exercise your independent professional judgment in responding to the query. If you concur, pleas document in the PROGRESS NOTES and DISCHARGE SUMMARY. If you do not agree with the query, please document in the query above. THIS QUERY IS PART OF THE PERMANENT MEDICAL RECORD
[2020-06-11 11:30] LABS: Glucose, Whole Blood 195 mg/dL (60-115)
--- NOTE | 2020-06-11 13:00 | CA_ITS ---
Transthoracic Echocardiogram Patient (Last, First, Middle): Yuko Higginbotham M Gender: Female Date of : 1955 Age: 64 Procedure Date: 06/11/2020 Procedure Type: Transthoracic Echocardiogram Location: [facility] [place] Height: 165.1 cm Weight: 149.69 kg BSA: 2.45 m2 Heart Rate: bpm BP: 169 / 62 mmHg Application Security Specialist: Referring MD: Dawn CHACON Symptoms: [facility] Study Quality: Good ECG Rhythm: Sinus Conclusions: - The left ventricular systolic function is normal. The visually estimated ejection fraction is between 60-65%. - The left atrium is severely dilated. - There is mild mitral valve regurgitation. - There is mild tricuspid valve regurgitation. Findings Procedure Information Contrast agent, definity, is being given per protocol without apparent complications. Left Ventricle Normal left ventricular cavity size. There is mildly increased left ventricular wall thickness. The left ventricular systolic function is normal. The visually estimated ejection fraction is between 60-65%. There is no evidence of regional wall motion abnormalities. E/E prime ratio is between 8 and 15 consistent with indeterminate filling pressures. Evidence suggests grade I (mild) diastolic dysfunction. Right Ventricle Normal right ventricular cavity size and systolic function. Atria The left atrium is severely dilated. The right atrium is normal in size. Aortic Valve There is a normal trileaflet aortic valve. There is no aortic valve stenosis. There is no aortic valve regurgitation. Mitral Valve The mitral valve appears normal. There is mild mitral annular calcification. There is mild mitral valve regurgitation. There is no mitral valve stenosis. Pulmonic Valve The pulmonic valve was not well visualized. Tricuspid Valve Normal tricuspid valve structure. There is mild tricuspid valve regurgitation. The right ventricular systolic pressure is 52 mmHg. Moderate pulmonary hypertension is present. Great Vessels The aortic annulus, sinuses of valsalva, and asc aorta are normal in size. Venous The inferior vena cava is mildly dilated and collapses greater than 50% with inspiration. Pericardium/Pleural There is no evidence of pericardial effusion. Prior Study Comparison Changes noted compared to prior study dated: 03/11/2019. RVSP higher. Measurements 2D Linear Measurements RVIDd: 3.35 RVIDd Index: 1.37 IVSd: 1.18 0.6-0.9/0.6-1.0 cm LVIDd: 5.46 3.9-5.3/4.2-5.9 cm LVIDd Index: 2.23 2.4-3.2/2.2-3.1 cm/m2 LVIDs: 3.68 2.0-3.6 cm LVPWd: 1.21 0.7-1.1 cm Ao Root: 2.80 2.1-3.5 cm LA Diam: 5.20 2.7-3.8/3.0-4.0 cm LAIDs Index: 2.12 1.5-2.3 cm/m2 LV Mass: 333.80 67-162/88-224 g LV Mass Index: 136.25 43-95/49-115 g/m2 LVOT Diam: 2.00 3.0+(-)1.3 cm 2D Systolic Function EF 4C: 69.90 >55% EF 2C: 57.40 >55% EF BiP: 64.10 >55% Mitral Valve MV Pk E: 1.15 MV PK A: 1.29 MV Decel Time: 155.00 E/A: 0.90 E'Lateral: 12.20 E'Medial: 6.48 E/E' Med: 17.70 E/E' Lat: 9.40 MR Vol - PW Dopp: 25.48 MR VTI: 1.82 MR ERO: 14.00 MR Alias Rahul: 0.32 MR RAD: 0.60 Aortic Valve AoV Pk Rahul: 2.26 AoV Mn Rahul: 1.54 AoV VTI: 0.56 AoV Pk Grad: 20.00 Aov Mn Grad: 11.00 JIE Cont.VTI: 2.07 LVOT LVOT Pk Rahul: 1.41 LVOT Mn Rahul: 1.01 LVOT VTI: 0.37 LVOT Pk Grad: 8.00 LVOT Mn Grad: 5.00 LVOT Diam: 2.00 LVOT Area: 3.14 Diastolic Function MV Pk E: 1.15 MV Pk A: 1.29 E/A: 0.90 E'Medial: 6.48 E/E' Med: 17.70 E' Laterial: 12.20 E/E' Lat: 9.40 Tricuspid Valve TR Pk Rahul: 3.33 TR Pk Grad: 44.00 RA Press: 15.00 RVSP: 52.00 Great Vessels Aorta Ao Root-2D: 2.80 2.0-3.7 cm Ao Asc: 2.70 2.1-3.4 cm Ao Arch: 2.80 Updated in Other Vendor System with Status of Final Koko Correia MD electronically signed on 06/11/2020 3:54:21 PM with status of Final
--- NOTE | 2020-06-11 13:04 | MHC.CM.PN ---
CM met with patient at the bedside who reports she is independent and lives with her brother. Patient states her nephew is her HCP, copy requested. Discussed discharge plan, home no services. Family will provide transport. CM will continue to follow patient for discharge needs.
--- NOTE | 2020-06-11 13:13 | PM.IMPN ---
Subjective Subjective Date of Service: 06/11/20 Interval History: Seen and examined this AM feeling slightly better today after blood still some MEDINA denies vaginal bleeding Physical Exam Vital Signs and I&O and Narrative: Vital Signs and I&O: Vital Signs Temp 97.6 F 06/11/20 11:30 Pulse 65 06/11/20 11:30 Resp 20 06/11/20 11:30 BP 169/63 H 06/11/20 08:16 Pulse Ox 97 06/11/20 12:00 Intake & Output 06/10/20 06/11/20 06/11/20 18:59 06:59 18:59 Intake Total 1170 / 1170 360 / 360 Output Total 1950 / 1950 700 / 700 Balance -780 / -780 -340 / -340 Urine Output (Aver age ml/kg/hr) 1.14 0.41 Weight 142.882 kg 142.882 kg Intake: Intake, Oral Cris unt 720 / 720 360 / 360 Intake (Blood Pr oduct) Amount 350 / 350 Red Blood Cell s (E0336) Unit 0 / 0 [id number] Red Blood Cell s (E0336) Unit 350 / 350 [id number] Intake, Other Am ount 100 / 100 Red Blood Cell s (E0336) Unit 50 / 50 [id number] Red Blood Cell s (E0336) Unit 50 / 50 [id number] Output: Output, Urine Am ount 1949 / 1950 700 / 700 Other: Breakfast % Eate n 100% Evening Snack % Eaten 100 Urine Bedside Commode Bedside Commode Urine Color Yellow Cloudy Body Mass Index 52.4 General - no acute distress, appears comfortable Cardiovascular - regular rate and rhythm, S1-S2 Lungs - no rales Abdomen - soft, nontender, no rebound regarding Extremities - n+edema Neuro - awake and alert, no focal deficits Objective Data Current Medications Generic Name Dose Route Start Last Admin Trade Name Freq PRN Reason Stop Dose Admin Acetaminophen 650 mg 06/10/20 20:52 Acetaminophen 325 Mg Tablet PO Q6H PRN Pain, Mild (Pain Scale 1-3) Amlodipine Besylate 5 mg 06/11/20 09:00 06/11/20 08:16 Amlodipine Besylate 5 Mg Tablet PO 5 mg DAILY FRANCHESCA Administration Protocol Atenolol 25 mg 06/11/20 09:00 06/11/20 08:16 Atenolol 25 Mg Tablet PO 25 mg BID FRANCHESCA Administration Protocol Atorvastatin Calcium 10 mg 06/11/20 21:00 Atorvastatin Calcium 10 Mg Tablet PO BEDTIME FRANCHESCA Docusate Sodium 100 mg 06/10/20 20:52 Docusate Sodium 100 Mg Capsule PO DAILY PRN Constipation Gabapentin 300 mg 06/11/20 09:00 06/11/20 08:16 Gabapentin 300 Mg Capsule PO 300 mg DAILY FRANCHESCA Administration Gabapentin 600 mg 06/11/20 21:00 Gabapentin 600 Mg Tablet PO BEDTIME FRANCHESCA Insulin Glargine 40 unit 06/11/20 21:00 Insulin Glargine,Hum.Rec.Anlog 100 Unit/Ml 10 Ml Vial SUBCUT BEDTIME FRANCHESCA Insulin Human Lispro 0 unit 06/10/20 21:00 06/11/20 11:38 Insulin Lispro 100 Unit/Ml 3 Ml Vial SUBCUT 06/11/20 18:55 2 unit QIDACHS FRANCHESCA Administration Protocol Lorazepam 0.5 mg 06/11/20 07:47 Lorazepam 0.5 Mg Tablet PO Q8H PRN panic attack Omeprazole 20 mg 06/11/20 09:00 06/11/20 10:44 Omeprazole 20 Mg/10 Ml Susp.Recon PO 20 mg DAILY FRANCHESCA Administration Ondansetron HCl 4 mg 06/10/20 20:52 Ondansetron Hcl 4 Mg/2 Ml Vial IVPUSH Q8H PRN Nausea and Vomiting Pharmacy Consult 1 each 06/10/20 20:35 Consult Rx Perform Med Rec MISCELLANE ONCE PRN Consult order Sodium Chloride 2 ml 06/11/20 00:00 06/11/20 08:16 0.9 % Sodium Chloride Flush 3 Ml Syringe IVFLUSH 2 ml QSHIFT FRANCHESCA Administration Labs CBC & Chem 7: 06/12/20 05:31 06/12/20 05:31 Progress Note: A&P (1) Anemia: Status: Acute Assessment and Plan: This is a 64-year-old female with a history of diabetes, dyslipidemia, hypertension sent to the emergency department for shortness of breath and anemia. 1. Symptomatic anemia related to recent vaginal bleeding. no active bleeding at this time h/h improved, >7 now; will repeat it now and given another 2 units prbcs if needed 2. Dyspna most likely 2/2 to anemia rule out cardiac etiology - echo one continue baseline lasix 40mg po 3. DM. sliding scale poc qidac 4. ATTILA ? related to anemia / ? cardiorenal improved, continue holding lisinopril 5. Hyperk 5 today, improved continue holding lisinopril 6. Morbid obesity weight loss encouraged likely contributing to her MEDINA and ? CHF (await echo) Full Code DVT pptx -- mechanical due to symptomatic anemia + recent vaginal bleed
[2020-06-11 13:53] LABS: Hematocrit 25.2 % (37-47); Hemoglobin 7.2 g/dl (12.0-16.0)
[2020-06-11 16:38] LABS: Glucose, Whole Blood 156 mg/dL (60-115)
[2020-06-11 21:05] LABS: Glucose, Whole Blood 181 mg/dL (60-115)
[2020-06-11] MEDS: Insulin Glargine,Hum.rec.anlog 100 UNIT/ML 10 ML VIAL 40 UNIT SUBCUT (21:14)
[2020-06-11] MEDS: Atorvastatin Calcium 10 MG TABLET PO (21:14)
[2020-06-11] MEDS: Gabapentin 600 MG TABLET PO (21:14)
[2020-06-12 03:39] VITALS: BP 157/76; PULSE 74; RESP 18; TEMP 36.6; O2SAT 98
[2020-06-12 06:41] LABS: MANUAL DIFF FLAG NO
[2020-06-12 07:02] LABS: Basophils Absolute Auto 0.1 X10*3/uL (0.0-0.2); Basophils Percent Auto 0.8 % (0-2); Eosinophils Absolute Auto 0.3 X10*3/uL (0.0-0.4); Eosinophils Percent Auto 4.2 % (0-4); Hematocrit 26.6 % (37-47); Hemoglobin 7.6 g/dl (12.0-16.0); Imm Gran Abs Auto 0.02 X10*3/uL (0.00-0.03); Imm Gran Pct Auto 0.3 % (0.0-0.4); Lymphocytes Absolute Auto 1.6 X10*3/uL (1.2-4.9); Lymphocytes Percent Auto 24.2 % (20-40); Mean Corpuscular HGB Conc 28.6 g/dl (31.0-35.0); Mean Corpuscular Hemoglobin 21.8 pg (27.0-33.0); Mean Corpuscular Volume 76.2 fL (80-98); Mean Platelet Volume 10.1 fL (9.4-12.3); Monocytes Absolute Auto 0.6 X10*3/uL (0.1-1.2); Monocytes Percent Auto 9.2 % (2-11); Neutrophils Absolute Auto 3.9 X10*3/uL (2.0-8.3); Neutrophils Percent Auto 61.3 % (45-73); Platelet Count 297 X10*3/uL (160-400); Red Blood Count 3.49 X10*6/uL (4.20-5.50); Red Cell Distribution Width 19.3 % (11.0-16.0); White Blood Count 6.4 X10*3/uL (4.8-10.8)
[2020-06-12 07:25] VITALS: BP 170/80; PULSE 68; RESP 20; TEMP 36.7; O2SAT 92
[2020-06-12 07:27] LABS: Glucose, Whole Blood 138 mg/dL (60-115)
[2020-06-12 07:30] LABS: Anion Gap 12 (12-20); Blood Urea Nitrogen 27 mg/dL (9-16); Calcium 7.9 mg/dL (8.4-10.2); Carbon Dioxide 25 mmol/L (22-29); Chloride 106 mmol/L (96-108); Creatinine Clr Calc Pharmacy 60.7; Estimated Glomerular Filt Rate 39; Glucose Fasting 150 mg/dL (60-99); Potassium 4.7 mmol/l (3.3-5.1); Sodium 138 mmol/L (135-145)
[2020-06-12] MEDS: 0.9 % Sodium Chloride Flush 3 ML SYRINGE 2 ML IVFLUSH (07:36)
[2020-06-12 08:30] LABS: Iron 24 mcg/dL (30-160); Percent Iron Saturation 6 % (15-50); Total Iron Binding Capacity 393 mcg/dL (228-428); Unsaturated Iron Binding 369 ug/dL
[2020-06-12 08:43] VITALS: BP 172/80; PULSE 68
[2020-06-12] MEDS: Gabapentin 300 MG CAPSULE PO (08:43)
[2020-06-12] MEDS: amLODIPine Besylate 5 MG TABLET PO (08:43)
[2020-06-12] MEDS: atenoloL 25 MG TABLET PO (08:43)
[2020-06-12] MEDS: Furosemide 40 MG TABLET PO (08:44)
[2020-06-12 08:50] LABS: Ferritin 2 ng/mL (10-250)
[2020-06-12 12:00] VITALS: BP 162/80; PULSE 88; RESP 20; TEMP 36.2; O2SAT 92
--- NOTE | 2020-06-12 13:25 | MHC.CM.PN ---
DC note Pt to DC home today with no services. Family to transport
--- NOTE | 2020-06-12 13:28 | PM.DS ---
DS: Providers Provider Date of admission: 06/10/20 18:58 Primary care physician: Haja Lezama MD DS: Diagnosis Discharge Diagnosis (1) Symptomatic anemia: Status: Acute (2) Iron deficiency anemia: Status: Acute (3) Dyspnea on exertion: Status: Acute (4) ATTILA (acute kidney injury): Status: Acute (5) Hyperkalemia: Status: Acute DS: Summary Hospital Course Hospital Course: HPI from the admission H&P: this is a 64-year-old female who presents to the emergency department with shortness of breath. Patient reports heavy vaginal bleeding from May 11 to May 18. during that time she was changing her pad hourly. Her father on May 11 and therefore she did not initially seek medical treatment. After her father's she called her primary care physician and had outpatient labs as well as pelvic ultrasound. she has continued to have shortness of breath and a CBC was done today. Her PCP called her and told her to come to the emergency department due to anemia. Her H/ H was noted to be 6.1/22.2. She denies any vaginal bleeding since May 18. In the emergency department she was also noted to have some leg edema and BNP of 273. her potassium was mildly elevated at 5.3. She was noted to be in mild acute kidney injury with creatinine of 1.76. Hospital Course patient presented with symptomatic anemia and was transfused a total of 3 units packed red cells with improvement in her H&H as well as her symptoms. Patient's BNP was also slightly elevated at the time of admission and so she was evaluated for heart failure with a echocardiogram which showed preserved ejection fraction. Lastly, patient presented with acute kidney injury which presumably was secondary to hypoperfusion from acute blood loss. With transfusion of blood, her renal function improved. She will be discharged home on iron supplementation. Time Spent with Patient Time attestation: Total time spent providing and/or coordinating discharge services: Physical Exam Vital Signs and I&O and Narrative: Vital Signs and I&O: Vital Signs Temp 98.0 F 06/12/20 07:25 Pulse 68 06/12/20 08:43 Resp 20 06/12/20 07:25 BP 172/80 H 06/12/20 08:43 Pulse Ox 92 06/12/20 07:25 Intake & Output 06/11/20 06/12/20 06/12/20 18:59 06:59 18:59 Intake Total 960 / 960 360 / 360 Output Total 999 900 / 900 Balance -40 / -0 -2049 / -2089 -540 / -540 Urine Output (Aver age ml/kg/hr) 0.58 1.20 0.52 Weight 142.882 kg Intake: Intake, Oral Cris unt 960 / 960 360 / 360 Output: Output, Urine Am ount 999 900 / 900 Other: Breakfast % Eate n 100% 100% Dinner % Eaten 100% Urine Bedside Commode Urine Color Cloudy Yellow Body Mass Index 52.4 General - no acute distress, appears comfortable Cardiovascular - regular rate and rhythm, S1-S2 Lungs - normal respiratory effort, clear to auscultation bilaterally, no wheezing Abdomen - soft, nontender, no rebound regarding Extremities - no edema bilaterally Neuro - awake and alert, no focal deficits DS: Data Data Completed and Pending Labs on day of discharge: Labs from last 24 hours 06/12/20 06/12/20 06/12/20 07:23 05:31 05:31 WBC 6.4 RBC 3.49 L Hgb 7.6 L Hct 26.6 L MCV 76.2 L MCH 21.8 L MCHC 28.6 L RDW 19.3 H Plt Count 297 MPV 10.1 Immature Gran % (Auto) 0.3 Neut % (Auto) 61.3 Lymph % (Auto) 24.2 [place] % (Auto) 9.2 Eos % (Auto) 4.2 H Baso % (Auto) 0.8 Lymph # (Auto) 1.6 [place] # (Auto) 0.6 Eos # (Auto) 0.3 Baso # (Auto) 0.1 Abs Immat Gran (auto) 0.02 Absolute Neuts (auto) 3.9 Absolute Nucleated RBC 0.000 Nucleated RBC % (auto) 0.0 Sodium 138 Potassium 4.7 Chloride 106 Carbon Dioxide 25 Anion Gap 12 BUN 27 H Creatinine 1.35 Estim Creat Clear Calc 60.7 Estimated GFR 39 POC Glucose 138 H Fasting Glucose 150 H D Calcium 7.9 L Iron 24 L TIBC 393 % Saturation 6 L Unsat Iron Binding 369 Ferritin 2 L Blood Type Antibody Screen Crossmatch 06/11/20 06/11/20 06/11/20 20:57 16:28 13:26 WBC RBC Hgb 7.2 L Hct 25.2 L MCV MCH MCHC RDW Plt Count MPV Immature Gran % (Auto) Neut % (Auto) Lymph % (Auto) [place] % (Auto) Eos % (Auto) Baso % (Auto) Lymph # (Auto) [place] # (Auto) Eos # (Auto) Baso # (Auto) Abs Immat Gran (auto) Absolute Neuts (auto) Absolute Nucleated RBC Nucleated RBC % (auto) Sodium Potassium Chloride Carbon Dioxide Anion Gap BUN Creatinine Estim Creat Clear Calc Estimated GFR POC Glucose 181 H 156 H Fasting Glucose Calcium Iron TIBC % Saturation Unsat Iron Binding Ferritin Blood Type Antibody Screen Crossmatch 06/10/20 17:05 WBC RBC Hgb Hct MCV MCH MCHC RDW Plt Count MPV Immature Gran % (Auto) Neut % (Auto) Lymph % (Auto) [place] % (Auto) Eos % (Auto) Baso % (Auto) Lymph # (Auto) [place] # (Auto) Eos # (Auto) Baso # (Auto) Abs Immat Gran (auto) Absolute Neuts (auto) Absolute Nucleated RBC Nucleated RBC % (auto) Sodium Potassium Chloride Carbon Dioxide Anion Gap BUN Creatinine Estim Creat Clear Calc Estimated GFR POC Glucose Fasting Glucose Calcium Iron TIBC % Saturation Unsat Iron Binding Ferritin Blood Type A Positive Antibody Screen NEGATIVE Crossmatch See Detail Discharge Plan Discharge Patient Disposition: Home, Self-Care Referrals: Haja Lezama MD [Primary Care Provider] - Discharge Medications: New ferrous sulfate 325 mg (65 mg iron) tablet 325 mg PO BID Qty: 60 RF: 0 ascorbic acid (vitamin C) [Vitamin C] 500 mg tablet 500 mg PO BID Qty: 60 RF: 0 docusate sodium [Colace] 100 mg capsule 100 mg PO BID Qty: 60 RF: 0 Continued (DME) pen needle, diabetic [BD Ultra-Fine Stacey Pen Needle] 32 gauge x 5/32 needle See Rx Instructions .ROUTE .MEDSUPPLY Qty: 120 RF: 11 furosemide 40 mg tablet 40 mg PO DAILY RF: 0 gabapentin 600 mg tablet 600 mg PO BEDTIME RF: 0 meloxicam 15 mg tablet 15 mg PO DAILY RF: 0 atenolol 25 mg tablet 25 mg PO BID RF: 0 amlodipine 5 mg tablet 5 mg PO DAILY RF: 0 simvastatin 40 mg tablet 40 mg PO BEDTIME RF: 0 lorazepam 0.5 mg tablet 0.5 mg PO Q8H PRN (Reason: panic attack) RF: 0 gabapentin 300 mg capsule 300 mg PO DAILY RF: 0 omeprazole 20 mg capsule,delayed release(DR/EC) 20 mg PO DAILY RF: 0 albuterol sulfate [ProAir HFA] 90 mcg/actuation HFA aerosol inhaler 2 puff PO Q4H RF: 0 lisinopril 40 mg tablet 40 mg PO DAILY RF: 0 insulin lispro [Humalog KwikPen Insulin] 100 unit/mL insulin pen 10 - 26 unit subcut RF: 0 solifenacin 5 mg tablet 5 mg PO BEDTIME RF: 0 Tresiba FlexTouch U-200 200 unit/mL (3 mL) insulin pen 62 unit subcut BEDTIME RF: 0 Discharge Orders: Discharge Order (Routine); Ordered 06/12/20 Ordered By: Víctor Marin Diet: advance to your usual diet Activity on Discharge: As tolerated Visit Report Forms: Patient Portal Discharge page Care Plan Goals: To have blood counts improve Health Concerns: Significant Anemia Plan of Treatment: Take iron pills twice daily. Take these with vitamin C to help absorption. Take colace twice daily to prevent colace.
[2020-06-13 18:41] LABS: Haptoglobin 188 mg/dL (43-212)
[2020-06-13 19:00] LABS: Transferrin 340 mg/dL (188-341)
[2020-08-08 13:14] LABS: Hemoglobin 6.1 g/dl (12.0-16.0)
== END 2020-06-12 14:00 | disposition home or self-care (01) | DRG 683 ==
LOC: HO.ED 18:23 → HO.IMC 19:34
PROVIDERS: Physician Assistant; Admitting Provider Physician Assistant Medical; Emergency Provider Emergency Medicine; PCP Family Medicine; Visit Provider Family Medicine
DX: N17.9 Acute kidney failure, unspecified (principal); Z68.43 Body mass index [BMI] 50.0-59.9, adult; I50.30 Unspecified diastolic (congestive) heart failure; K21.9 Gastro-esophageal reflux disease without esophagitis; E78.5 Hyperlipidemia, unspecified; E11.65 Type 2 diabetes mellitus with hyperglycemia; E11.42 Type 2 diabetes mellitus with diabetic polyneuropathy; M19.90 Unspecified osteoarthritis, unspecified site; D64.9 Anemia, unspecified; E66.01 Morbid (severe) obesity due to excess calories; E87.5 Hyperkalemia; Z87.891 Personal history of nicotine dependence; Z79.1 Long term (current) use of non-steroidal anti-inflammatories (NSAID); Z79.4 Long term (current) use of insulin; Z79.899 Other long term (current) drug therapy
CPT/HCPCS: 36415; 80048; 80076; 82728; 82947; 83010; 83540; 83615; 83690; 83735; 83880; 84466; 84484; 85014; 85018; 85025; 85045; 86850; 86900; 86901; 86920; 86923; 93005; 93306; 99284; 99285; J1940; P9016; Q9957

== ENCOUNTER 2020-06-25 10:11 | Outpatient (REF) | payer OTHER, SELFPAY ==
[2020-06-25 11:15] LABS: MANUAL DIFF FLAG NO
[2020-06-25 11:24] LABS: Basophils Absolute Auto 0.1 X10*3/uL (0.0-0.2); Basophils Percent Auto 1.1 % (0-2); Eosinophils Absolute Auto 0.3 X10*3/uL (0.0-0.4); Eosinophils Percent Auto 3.4 % (0-4); Hematocrit 35.9 % (37-47); Hemoglobin 10.3 g/dl (12.0-16.0); Imm Gran Abs Auto 0.03 X10*3/uL (0.00-0.03); Imm Gran Pct Auto 0.4 % (0.0-0.4); Lymphocytes Absolute Auto 1.8 X10*3/uL (1.2-4.9); Lymphocytes Percent Auto 23.7 % (20-40); Mean Corpuscular HGB Conc 28.7 g/dl (31.0-35.0); Mean Corpuscular Hemoglobin 22.6 pg (27.0-33.0); Mean Corpuscular Volume 78.9 fL (80-98); Monocytes Absolute Auto 0.5 X10*3/uL (0.1-1.2); Monocytes Percent Auto 6.2 % (2-11); Neutrophils Absolute Auto 4.8 X10*3/uL (2.0-8.3); Neutrophils Percent Auto 65.2 % (45-73); Platelet Count 317 X10*3/uL (160-400); Red Blood Count 4.55 X10*6/uL (4.20-5.50); Red Cell Distribution Width 23.4 % (11.0-16.0); White Blood Count 7.4 X10*3/uL (4.8-10.8)
[2020-06-25 11:39] LABS: Iron 119 mcg/dL (30-160); Percent Iron Saturation 33 % (15-50); Total Iron Binding Capacity 366 mcg/dL (228-428); Unsaturated Iron Binding 247 ug/dL
== END 2020-06-25 10:12 | disposition home or self-care (01) ==
LOC: HO.HMGCLDS 10:11
PROVIDERS: PCP Family Medicine; Visit Provider Family Medicine
DX: D64.9 Anemia, unspecified (principal)
CPT/HCPCS: 36415; 83540; 85025

== ENCOUNTER 2020-09-16 10:04 | Outpatient (REF) | payer OTHER, SELFPAY ==
[2020-09-16 13:30] LABS: Basophils Absolute Auto 0.1 X10*3/uL (0.0-0.2); Eosinophils Absolute Auto 0.2 X10*3/uL (0.0-0.4); Eosinophils Percent Auto 2.5 % (0-4); Hematocrit 35.1 % (37-47); Hemoglobin 10.1 g/dl (12.0-16.0); Imm Gran Abs Auto 0.03 X10*3/uL (0.00-0.03); Imm Gran Pct Auto 0.4 % (0.0-0.4); Lymphocytes Absolute Auto 1.6 X10*3/uL (1.2-4.9); Lymphocytes Percent Auto 18.7 % (20-40); MANUAL DIFF FLAG NO; Mean Corpuscular HGB Conc 28.8 g/dl (31.0-35.0); Mean Corpuscular Hemoglobin 22.2 pg (27.0-33.0); Mean Corpuscular Volume 77.3 fL (80-98); Mean Platelet Volume 10.8 fL (9.4-12.3); Monocytes Absolute Auto 0.4 X10*3/uL (0.1-1.2); Monocytes Percent Auto 5.1 % (2-11); Neutrophils Percent Auto 72.3 % (45-73); Platelet Count 301 X10*3/uL (160-400); Red Blood Count 4.54 X10*6/uL (4.20-5.50); Red Cell Distribution Width 15.6 % (11.0-16.0); White Blood Count 8.3 X10*3/uL (4.8-10.8)
[2020-09-16 14:00] LABS: Estimated Average Glucose 229 mg/dL; Hemoglobin A1c % 9.6 %
[2020-09-16 14:06] LABS: Anion Gap 15 (12-20); Blood Urea Nitrogen 47 mg/dL (9-16); Carbon Dioxide 27 mmol/L (22-29); Chloride 104 mmol/L (96-108); Estimated Glomerular Filt Rate 30; Glucose Fasting 125 mg/dL (60-99); Iron 23 mcg/dL (30-160); Percent Iron Saturation 7 % (15-50); Potassium 4.8 mmol/l (3.3-5.1); Sodium 141 mmol/L (135-145); Total Iron Binding Capacity 351 mcg/dL (228-428); Unsaturated Iron Binding 328 ug/dL
[2020-09-16 14:58] LABS: Microalbum/Creatinine Ratio Ur 531.3 ug/mg cr
[2020-09-18 19:17] LABS: HPV mRNA E6/E7 rflx Not Detected (Not Detected)
== END 2020-09-16 10:05 | disposition home or self-care (01) ==
LOC: HO.LAB 10:04
PROVIDERS: PCP Family Medicine; Visit Provider Family Medicine
DX: Z12.4 Encounter for screening for malignant neoplasm of cervix (principal); E11.9 Type 2 diabetes mellitus without complications; I10 Essential (primary) hypertension; D64.9 Anemia, unspecified; N93.9 Abnormal uterine and vaginal bleeding, unspecified; N95.0 Postmenopausal bleeding
CPT/HCPCS: 36415; 58100; 80051; 82043; 82565; 82947; 83036; 83540; 84520; 85025; 87624; 88142

== ENCOUNTER 2020-09-16 11:55 | Outpatient (REF) | payer OTHER, SELFPAY | END 2020-09-16 11:56 | disposition home or self-care (01) | LOC: HO.LNP 11:55 | PROVIDERS: Visit Provider Obstetrics & Gynecology | DX: N93.9 Abnormal uterine and vaginal bleeding, unspecified (principal); N95.0 Postmenopausal bleeding | CPT/HCPCS: 88305 ==

== ENCOUNTER → 2020-09-18 14:17 | Outpatient (BNVA) | payer OTHER, SELFPAY | PROVIDERS: PCP Family Medicine; Visit Provider Obstetrics & Gynecology | DX: Z76.89 Persons encountering health services in other specified circumstances (principal) ==

== ENCOUNTER → 2020-11-18 09:16 | Outpatient (BNVA) | payer OTHER, SELFPAY | PROVIDERS: PCP Family Medicine; Visit Provider Nurse Practitioner Gerontology | DX: I12.9 Hypertensive chronic kidney disease with stage 1 through stage 4 chronic kidney disease, or unspecified chronic kidney disease (principal); E11.65 Type 2 diabetes mellitus with hyperglycemia; E11.22 Type 2 diabetes mellitus with diabetic chronic kidney disease; E11.21 Type 2 diabetes mellitus with diabetic nephropathy; N18.30 Chronic kidney disease, stage 3 unspecified; E78.5 Hyperlipidemia, unspecified; Z71.3 Dietary counseling and surveillance; Z79.4 Long term (current) use of insulin | CPT/HCPCS: Q3014 ==

== ENCOUNTER 2020-11-23 10:41 | Outpatient (REF) | payer MEDICARE, OTHER, SELFPAY ==
[2020-11-23 14:40] LABS: MANUAL DIFF FLAG NO
[2020-11-23 14:48] LABS: Basophils Absolute Auto 0.1 X10*3/uL (0.0-0.2); Basophils Percent Auto 1.1 % (0-2); Eosinophils Absolute Auto 0.2 X10*3/uL (0.0-0.4); Eosinophils Percent Auto 2.6 % (0-4); Hematocrit 32.3 % (37-47); Hemoglobin 8.8 g/dl (12.0-16.0); Imm Gran Abs Auto 0.01 X10*3/uL (0.00-0.03); Imm Gran Pct Auto 0.2 % (0.0-0.4); Lymphocytes Absolute Auto 1.3 X10*3/uL (1.2-4.9); Lymphocytes Percent Auto 19.8 % (20-40); Mean Corpuscular HGB Conc 27.2 g/dl (31.0-35.0); Mean Corpuscular Hemoglobin 20.3 pg (27.0-33.0); Mean Corpuscular Volume 74.6 fL (80-98); Mean Platelet Volume 10.9 fL (9.4-12.3); Monocytes Absolute Auto 0.3 X10*3/uL (0.1-1.2); Monocytes Percent Auto 5.1 % (2-11); Neutrophils Absolute Auto 4.6 X10*3/uL (2.0-8.3); Neutrophils Percent Auto 71.2 % (45-73); Platelet Count 335 X10*3/uL (160-400); Red Blood Count 4.33 X10*6/uL (4.20-5.50); Red Cell Distribution Width 15.8 % (11.0-16.0); White Blood Count 6.5 X10*3/uL (4.8-10.8)
[2020-11-23 15:20] LABS: Iron 24 mcg/dL (30-160); Percent Iron Saturation 6 % (15-50); Total Iron Binding Capacity 397 mcg/dL (228-428); Unsaturated Iron Binding 373 ug/dL
[2020-11-23 15:24] LABS: Alanine Aminotransferase 7 U/L (0-31); Alkaline Phosphatase 85 U/L (39-117); Anion Gap 15 (12-20); Aspartate Amino Transferase 10 U/L (5-31); Bilirubin Total 0.4 mg/dL (0.0-1.0); Blood Urea Nitrogen 35 mg/dL (9-16); Calcium 8.9 mg/dL (8.4-10.2); Carbon Dioxide 29 mmol/L (22-29); Chloride 103 mmol/L (96-108); Estimated Glomerular Filt Rate 31; Glucose Fasting 190 mg/dL (60-99); Potassium 5.2 mmol/L (3.3-5.1); Sodium 142 mmol/L (135-145); Total Protein 7.2 g/dL (6.5-8.0)
[2020-11-23 16:03] LABS: Creatinine Urine 27.56 mg/dL; Microalbum/Creatinine Ratio Ur 253.9 ug/mg cr
== END 2020-11-23 10:42 | disposition home or self-care (01) ==
LOC: HO.HMGCLDS 10:41
PROVIDERS: PCP Family Medicine; Visit Provider Nurse Practitioner Gerontology
DX: E11.65 Type 2 diabetes mellitus with hyperglycemia (principal); D64.9 Anemia, unspecified; I10 Essential (primary) hypertension
CPT/HCPCS: 36415; 80053; 82043; 83540; 85025

== ENCOUNTER → 2021-02-24 09:05 | Outpatient (REF) | payer MEDICARE, OTHER, SELFPAY ==
--- NOTE | 2021-02-24 14:08 | ECG_ITS ---
Test Reason : PREOP, DM Blood Pressure : / mmHG Vent. Rate : 078 BPM Atrial Rate : 078 BPM P-R Int : 128 ms QRS Dur : 084 ms QT Int : 406 ms P-R-T Axes : 041 012 015 degrees QTc Int : 462 ms Sinus rhythm with marked sinus arrhythmia Otherwise normal ECG When compared with ECG of 10-JUN-2020 17:26, No significant change was found Referred By: Skylar Rm Electronically Signed By:Ahsan Tsang
== END ==
LOC: HO.CARD 09:05
PROVIDERS: Absent Provider Family Medicine; PCP Family Medicine; Visit Provider Nurse Practitioner Gerontology
DX: Z01.818 Encounter for other preprocedural examination (principal); E11.65 Type 2 diabetes mellitus with hyperglycemia; E11.21 Type 2 diabetes mellitus with diabetic nephropathy; E11.22 Type 2 diabetes mellitus with diabetic chronic kidney disease; I12.9 Hypertensive chronic kidney disease with stage 1 through stage 4 chronic kidney disease, or unspecified chronic kidney disease; N18.30 Chronic kidney disease, stage 3 unspecified; E78.5 Hyperlipidemia, unspecified; E87.5 Hyperkalemia; E66.01 Morbid (severe) obesity due to excess calories; Z79.4 Long term (current) use of insulin; Z68.43 Body mass index [BMI] 50.0-59.9, adult
CPT/HCPCS: 93005; Q3014

== ENCOUNTER 2021-02-25 09:37 | Outpatient (REF) | payer MEDICARE, OTHER, SELFPAY ==
[2021-02-25 11:17] LABS: MANUAL DIFF FLAG NO
[2021-02-25 11:42] LABS: Basophils Percent Auto 0.6 % (0-2); Eosinophils Absolute Auto 0.2 X10*3/uL (0.0-0.4); Eosinophils Percent Auto 2.2 % (0-4); Hematocrit 32.8 % (37-47); Hemoglobin 8.9 g/dl (12.0-16.0); Imm Gran Abs Auto 0.02 X10*3/uL (0.00-0.03); Imm Gran Pct Auto 0.3 % (0.0-0.4); Lymphocytes Absolute Auto 1.4 X10*3/uL (1.2-4.9); Lymphocytes Percent Auto 19.8 % (20-40); Mean Corpuscular HGB Conc 27.1 g/dl (31.0-35.0); Mean Corpuscular Hemoglobin 19.3 pg (27.0-33.0); Mean Platelet Volume 11.1 fL (9.4-12.3); Monocytes Absolute Auto 0.4 X10*3/uL (0.1-1.2); Monocytes Percent Auto 4.9 % (2-11); Neutrophils Absolute Auto 5.1 X10*3/uL (2.0-8.3); Neutrophils Percent Auto 72.2 % (45-73); Platelet Count 330 X10*3/uL (160-400); Red Blood Count 4.62 X10*6/uL (4.20-5.50); Red Cell Distribution Width 18.1 % (11.0-16.0); White Blood Count 7.1 X10*3/uL (4.8-10.8)
[2021-02-25 11:43] LABS: Estimated Average Glucose 186 mg/dL; Hemoglobin A1c % 8.1 %
[2021-02-25 11:45] LABS: Alanine Aminotransferase 9 U/L (0-31); Albumin Level 3.7 g/dL (3.5-5.0); Alkaline Phosphatase 94 U/L (39-117); Anion Gap 13 (12-20); Aspartate Amino Transferase 11 U/L (5-31); Bilirubin Total 0.4 mg/dL (0.0-1.0); Blood Urea Nitrogen 52 mg/dL (9-16); Carbon Dioxide 28 mmol/L (22-29); Chloride 105 mmol/L (96-108); Cholesterol 121 mg/dL; Estimated Glomerular Filt Rate 31; Glucose Fasting 116 mg/dL (60-99); HDL Cholesterol 26 mg/dL; LDL Cholesterol Calculated 77 mg/dl; Potassium 4.4 mmol/L (3.3-5.1); Sodium 142 mmol/L (135-145); Total Protein 6.8 g/dL (6.5-8.0); Triglycerides 93 mg/dL
[2021-02-25 11:48] LABS: Creatinine Urine 104.65 mg/dL; Microalbum/Creatinine Ratio Ur 124.2 ug/mg cr
[2021-02-25 11:56] LABS: Anion Gap 14 (12-20); Carbon Dioxide 27 mmol/L (22-29); Chloride 105 mmol/L (96-108); Potassium 4.4 mmol/L (3.3-5.1); Sodium 142 mmol/L (135-145)
[2021-02-26 06:32] LABS: LDL Cholesterol Direct 71 mg/dL (<100)
== END 2021-02-25 09:38 | disposition home or self-care (01) ==
LOC: HO.HMGCLDS 09:37
PROVIDERS: PCP Family Medicine; Visit Provider Nurse Practitioner Gerontology
DX: E11.65 Type 2 diabetes mellitus with hyperglycemia (principal); E11.22 Type 2 diabetes mellitus with diabetic chronic kidney disease; I12.9 Hypertensive chronic kidney disease with stage 1 through stage 4 chronic kidney disease, or unspecified chronic kidney disease; N18.30 Chronic kidney disease, stage 3 unspecified; D64.9 Anemia, unspecified; E78.00 Pure hypercholesterolemia, unspecified; Z79.4 Long term (current) use of insulin
CPT/HCPCS: 36415; 80051; 80053; 80061; 82043; 82550; 83036; 83721; 85025

== ENCOUNTER 2021-06-11 11:12 | Outpatient (REF) | payer MEDICARE, OTHER, SELFPAY ==
[2021-06-11 13:49] LABS: MANUAL DIFF FLAG NO
[2021-06-11 13:54] LABS: Basophils Percent Auto 0.9 % (0-2); Eosinophils Absolute Auto 0.4 X10*3/uL (0.0-0.4); Hematocrit 33.9 % (37-47); Hemoglobin 9.3 g/dl (12.0-16.0); Imm Gran Abs Auto 0.02 X10*3/uL (0.00-0.03); Imm Gran Pct Auto 0.5 % (0.0-0.4); Lymphocytes Absolute Auto 0.4 X10*3/uL (1.2-4.9); Lymphocytes Percent Auto 8.3 % (20-40); Mean Corpuscular HGB Conc 27.4 g/dl (31.0-35.0); Mean Corpuscular Hemoglobin 20.2 pg (27.0-33.0); Mean Corpuscular Volume 73.5 fL (80-98); Mean Platelet Volume 9.7 fL (9.4-12.3); Monocytes Absolute Auto 0.3 X10*3/uL (0.1-1.2); Monocytes Percent Auto 5.7 % (2-11); Neutrophils Absolute Auto 3.3 X10*3/uL (2.0-8.3); Neutrophils Percent Auto 76.6 % (45-73); Platelet Count 288 X10*3/uL (160-400); Red Blood Count 4.61 X10*6/uL (4.20-5.50); Red Cell Distribution Width 20.3 % (11.0-16.0); White Blood Count 4.4 X10*3/uL (4.8-10.8)
[2021-06-11 14:08] LABS: Alanine Aminotransferase 9 U/L (0-31); Albumin Level 3.6 g/dL (3.5-5.0); Alkaline Phosphatase 75 U/L (39-117); Anion Gap 13 (12-20); Aspartate Amino Transferase 9 U/L (5-31); Bilirubin Total 0.3 mg/dL (0.0-1.0); Blood Urea Nitrogen 31 mg/dL (9-16); Calcium 8.9 mg/dL (8.4-10.2); Carbon Dioxide 26 mmol/L (22-29); Chloride 106 mmol/L (96-108); Estimated Glomerular Filt Rate 33; Glucose Fasting 177 mg/dL (60-99); Potassium 5.3 mmol/L (3.3-5.1); Sodium 140 mmol/L (135-145); Total Protein 6.7 g/dL (6.5-8.0)
== END 2021-06-11 11:13 | disposition home or self-care (01) ==
LOC: HO.10HDL 11:12
PROVIDERS: Visit Provider Family Medicine
DX: R53.1 Weakness (principal); R11.0 Nausea
CPT/HCPCS: 36415; 80053; 85025

== ENCOUNTER 2021-07-19 00:36 | Outpatient (REF) | payer OTHER, MEDICARE, SELFPAY | END 2021-07-19 00:37 | disposition home or self-care (01) | LOC: HO.MMNH1L 00:36 | PROVIDERS: Visit Provider Family Medicine | DX: Z13.89 Encounter for screening for other disorder (principal) ==

== ENCOUNTER 2021-08-10 13:53 | Outpatient (REF) | payer MEDICARE, OTHER, SELFPAY ==
[2021-08-10 17:14] LABS: Anion Gap 16 (12-20); Blood Urea Nitrogen 31 mg/dL (9-16); Carbon Dioxide 22 mmol/L (22-29); Chloride 106 mmol/L (96-108); Estimated Glomerular Filt Rate 29; Iron 32 mcg/dL (30-160); Percent Iron Saturation 10 % (15-50); Potassium 5.1 mmol/L (3.3-5.1); Sodium 139 mmol/L (135-145); Total Iron Binding Capacity 318 mcg/dL (228-428); Unsaturated Iron Binding 286 ug/dL
[2021-08-10 17:34] LABS: Ferritin 21 ng/mL (10-250)
[2021-08-10 17:56] LABS: Folate 6.6 ng/mL (> or = 4.0); Vitamin B12 359 pg/mL (200-900)
== END 2021-08-10 13:54 | disposition home or self-care (01) ==
LOC: HO.HMGCLNP 13:53
PROVIDERS: PCP Family Medicine; Visit Provider Family Medicine
DX: D64.9 Anemia, unspecified (principal); I10 Essential (primary) hypertension
CPT/HCPCS: 80051; 82565; 82607; 82728; 82746; 83540; 84520

== ENCOUNTER 2021-11-22 00:37 | Outpatient (REF) | payer SELFPAY ==
[2021-11-22 07:10] LABS: Hematocrit 28.5 % (37.0-47.0); Hemoglobin 8.1 g/dl (12.0-16.0); Mean Corpuscular HGB Conc 28.4 g/dl (31.0-35.0); Mean Corpuscular Hemoglobin 22.9 pg (27.0-33.0); Mean Corpuscular Volume 80.7 fL (80.0-98.0); Mean Platelet Volume 10.6 fL (9.4-12.3); Platelet Count 231 X10*3/uL (160-400); Red Blood Count 3.53 X10*6/uL (4.20-5.50); Red Cell Distribution Width 17.9 % (11.0-16.0); White Blood Count 5.4 X10*3/uL (4.8-10.8)
[2021-11-22 07:41] LABS: Anion Gap 14 (12-20); Blood Urea Nitrogen 53 mg/dL (9-16); Calcium 8.1 mg/dL (8.4-10.2); Carbon Dioxide 23 mmol/L (22-29); Chloride 105 mmol/L (96-108); Estimated Glomerular Filt Rate 24; Glucose Random 205 mg/dL (60-115); Potassium 4.4 mmol/L (3.3-5.1); Sodium 138 mmol/L (135-145)
== END 2021-11-22 00:38 | disposition home or self-care (01) ==
LOC: HO.MMNH1L 00:37
PROVIDERS: Visit Provider Family Medicine
DX: E87.5 Hyperkalemia (principal); E11.9 Type 2 diabetes mellitus without complications; N17.9 Acute kidney failure, unspecified
CPT/HCPCS: 36415; 80048; 85027

== ENCOUNTER → 2022-02-07 08:01 | Outpatient (BNVA) | payer OTHER, MEDICARE, SELFPAY | PROVIDERS: PCP Family Medicine; Visit Provider Nurse Practitioner Gerontology | DX: Z13.89 Encounter for screening for other disorder (principal) ==

== ENCOUNTER 2022-10-28 | Outpatient (REF) | payer MEDICARE, OTHER, SELFPAY ==
[2022-10-28 12:33] LABS: MANUAL DIFF FLAG NO
[2022-10-28 12:38] LABS: Basophils Absolute Auto 0.1 X10*3/uL (0.0-0.2); Basophils Percent Auto 0.7 % (0-2); Eosinophils Absolute Auto 0.2 X10*3/uL (0.0-0.4); Eosinophils Percent Auto 2.5 % (0-4); Hematocrit 37.3 % (37.0-47.0); Hemoglobin 11.5 g/dl (12.0-16.0); Imm Gran Abs Auto 0.03 X10*3/uL (0.00-0.03); Imm Gran Pct Auto 0.4 % (0.0-0.4); Lymphocytes Absolute Auto 1.2 X10*3/uL (1.2-4.9); Lymphocytes Percent Auto 17.6 % (20-40); Mean Corpuscular HGB Conc 30.8 g/dl (31.0-35.0); Mean Corpuscular Volume 84.2 fL (80.0-98.0); Mean Platelet Volume 9.8 fL (9.4-12.3); Monocytes Absolute Auto 0.3 X10*3/uL (0.1-1.2); Monocytes Percent Auto 4.9 % (2-11); Neutrophils Absolute Auto 5.1 x10*3/uL (2.0-8.3); Neutrophils Percent Auto 73.9 % (45-73); Platelet Count 265 X10*3/uL (160-400); Red Blood Count 4.43 X10*6/uL (4.20-5.50); Red Cell Distribution Width 14.2 % (11.0-16.0); White Blood Count 6.9 X10*3/uL (4.8-10.8)
[2022-10-28 13:16] LABS: Alanine Aminotransferase 8 U/L (0-31); Anion Gap 12 (12-20); Aspartate Amino Transferase 15 U/L (5-31); Blood Urea Nitrogen 22 mg/dL (9-16); Carbon Dioxide 28 mmol/L (22-29); Chloride 105 mmol/L (96-108); Cholesterol 173 mg/dL; Estimated Glomerular Filt Rate > 60; Glucose Fasting 83 mg/dL (60-99); HDL Cholesterol 37 mg/dL; Iron 54 mcg/dL (30-160); LDL Cholesterol Calculated 115 mg/dl; Percent Iron Saturation 27 % (15-50); Potassium 5.2 mmol/L (3.3-5.1); Sodium 140 mmol/L (135-145); Total Iron Binding Capacity 200 mcg/dL (228-428); Triglycerides 106 mg/dL; Unsaturated Iron Binding 146 ug/dL
[2022-10-28 16:20] LABS: Estimated Average Glucose 171 mg/dL; Hemoglobin A1c % 7.6 %
== END 2022-10-28 00:01 | disposition home or self-care (01) ==
LOC: HO.LHD
PROVIDERS: Visit Provider Family Medicine
DX: E11.9 Type 2 diabetes mellitus without complications (principal); D50.9 Iron deficiency anemia, unspecified; I10 Essential (primary) hypertension; E78.00 Pure hypercholesterolemia, unspecified; Z79.899 Other long term (current) drug therapy
CPT/HCPCS: 36415; 80051; 80061; 82550; 82565; 82947; 83036; 83540; 84450; 84460; 84520; 85025

== ENCOUNTER 2023-03-21 07:45 | Outpatient (REF) | payer MEDICARE, OTHER, SELFPAY | END 2023-03-21 07:46 | disposition home or self-care (01) | LOC: HO.LHD 07:45 | PROVIDERS: Visit Provider Family Medicine | DX: Z13.89 Encounter for screening for other disorder (principal) ==

== ENCOUNTER 2023-03-27 06:47 | Outpatient (REF) | payer MEDICARE, OTHER, SELFPAY ==
[2023-03-27 11:40] LABS: MANUAL DIFF FLAG NO
[2023-03-27 11:48] LABS: Basophils Absolute Auto 0.1 X10*3/uL (0.0-0.2); Basophils Percent Auto 0.9 % (0-2); Eosinophils Absolute Auto 0.2 X10*3/uL (0.0-0.4); Eosinophils Percent Auto 2.7 % (0-4); Hematocrit 38.6 % (37.0-47.0); Hemoglobin 11.8 g/dl (12.0-16.0); Imm Gran Abs Auto 0.03 X10*3/uL (0.00-0.03); Imm Gran Pct Auto 0.5 % (0.0-0.4); Lymphocytes Absolute Auto 1.2 X10*3/uL (1.2-4.9); Lymphocytes Percent Auto 21.1 % (20-40); Mean Corpuscular HGB Conc 30.6 g/dl (31.0-35.0); Mean Corpuscular Volume 88.3 fL (80.0-98.0); Monocytes Absolute Auto 0.3 X10*3/uL (0.1-1.2); Monocytes Percent Auto 5.2 % (2-11); Neutrophils Absolute Auto 3.9 x10*3/uL (2.0-8.3); Neutrophils Percent Auto 69.6 % (45-73); Platelet Count 233 X10*3/uL (160-400); Red Blood Count 4.37 X10*6/uL (4.20-5.50); White Blood Count 5.6 X10*3/uL (4.8-10.8)
[2023-03-27 11:56] LABS: Anion Gap 12 (12-20); Blood Urea Nitrogen 24 mg/dL (9-16); Carbon Dioxide 30 mmol/L (22-29); Chloride 103 mmol/L (96-108); Estimated Glomerular Filt Rate 56; Glucose Fasting 106 mg/dL (60-99); Potassium 4.3 mmol/L (3.3-5.1); Sodium 141 mmol/L (135-145)
[2023-03-27 12:05] LABS: Estimated Average Glucose 223 mg/dL; Hemoglobin A1c % 9.4 %
== END 2023-03-27 06:48 | disposition home or self-care (01) ==
LOC: HO.LHD 06:47
PROVIDERS: Visit Provider Family Medicine
DX: E11.9 Type 2 diabetes mellitus without complications (principal); I10 Essential (primary) hypertension; D64.9 Anemia, unspecified
CPT/HCPCS: 36415; 80051; 82565; 82947; 83036; 84520; 85025

== ENCOUNTER 2023-07-05 10:00 | Outpatient (REF) | payer MEDICARE, OTHER, SELFPAY ==
[2023-07-05 13:15] LABS: MANUAL DIFF FLAG NO
[2023-07-05 13:28] LABS: Basophils Percent Auto 0.4 % (0-2); Eosinophils Absolute Auto 0.1 X10*3/uL (0.0-0.4); Eosinophils Percent Auto 1.3 % (0-4); Hematocrit 35.9 % (37.0-47.0); Hemoglobin 10.9 g/dl (12.0-16.0); Imm Gran Abs Auto 0.03 X10*3/uL (0.00-0.03); Imm Gran Pct Auto 0.4 % (0.0-0.4); Lymphocytes Absolute Auto 1.1 X10*3/uL (1.2-4.9); Lymphocytes Percent Auto 13.6 % (20-40); Mean Corpuscular HGB Conc 30.4 g/dl (31.0-35.0); Mean Corpuscular Hemoglobin 26.1 pg (27.0-33.0); Mean Corpuscular Volume 86.1 fL (80.0-98.0); Mean Platelet Volume 10.3 fL (9.4-12.3); Monocytes Absolute Auto 0.2 X10*3/uL (0.1-1.2); Monocytes Percent Auto 2.7 % (2-11); Neutrophils Absolute Auto 6.9 x10*3/uL (2.0-8.3); Neutrophils Percent Auto 81.6 % (45-73); Platelet Count 288 X10*3/uL (160-400); Red Blood Count 4.17 X10*6/uL (4.20-5.50); White Blood Count 8.4 X10*3/uL (4.8-10.8)
[2023-07-05 13:39] LABS: Anion Gap 17 (12-20); Blood Urea Nitrogen 30 mg/dL (9-16); Calcium 8.9 mg/dL (8.4-10.2); Carbon Dioxide 30 mmol/L (22-29); Chloride 98 mmol/L (96-108); Estimated Glomerular Filt Rate 39; Glucose Random 169 mg/dL (60-115); Potassium 4.7 mmol/L (3.3-5.1); Sodium 140 mmol/L (135-145)
[2023-07-05 14:48] LABS: Anion Gap 19 (12-20); Blood Urea Nitrogen 30 mg/dL (9-16); Carbon Dioxide 27 mmol/L (22-29); Chloride 98 mmol/L (96-108); Estimated Glomerular Filt Rate 37; Potassium 4.7 mmol/L (3.3-5.1); Sodium 139 mmol/L (135-145)
== END 2023-07-05 10:01 | disposition home or self-care (01) ==
LOC: HO.HMGCLNP 10:00
PROVIDERS: PCP Family Medicine; Visit Provider Family Medicine
DX: I11.0 Hypertensive heart disease with heart failure (principal); I50.9 Heart failure, unspecified
CPT/HCPCS: 80048; 80051; 82565; 84520; 85025

== ENCOUNTER 2023-10-11 11:50 | Outpatient (REF) | payer MEDICARE, OTHER, SELFPAY ==
[2023-10-11 13:49] LABS: Estimated Average Glucose 200 mg/dL; Hemoglobin A1c % 8.6 % (<6.0)
[2023-10-11 14:27] LABS: Anion Gap 12 (12-20); Blood Urea Nitrogen 40 mg/dL (9-16); Calcium 8.7 mg/dL (8.4-10.2); Carbon Dioxide 30 mmol/L (22-29); Chloride 102 mmol/L (96-108); Estimated Glomerular Filt Rate 34; Glucose Random 235 mg/dL (60-115); Potassium 4.3 mmol/L (3.3-5.1); Sodium 140 mmol/L (135-145)
== END 2023-10-11 11:51 | disposition home or self-care (01) ==
LOC: HO.HMGCLNP 11:50
PROVIDERS: PCP Family Medicine; Visit Provider Family Medicine
DX: I13.0 Hypertensive heart and chronic kidney disease with heart failure and stage 1 through stage 4 chronic kidney disease, or unspecified chronic kidney disease (principal); E11.22 Type 2 diabetes mellitus with diabetic chronic kidney disease; N18.9 Chronic kidney disease, unspecified; I50.9 Heart failure, unspecified
CPT/HCPCS: 80048; 83036

== ENCOUNTER 2023-10-25 12:56 | Outpatient (REF) | payer MEDICARE, OTHER, SELFPAY ==
[2023-10-25 16:26] LABS: MANUAL DIFF FLAG NO
[2023-10-25 16:41] LABS: Basophils Percent Auto 0.7 % (0-2); Eosinophils Absolute Auto 0.2 X10*3/uL (0.0-0.4); Eosinophils Percent Auto 3.3 % (0-4); Hematocrit 37.2 % (37.0-47.0); Hemoglobin 10.6 g/dl (12.0-16.0); INTERNATIONAL NORM RATIO 1.7 (0.9-1.1); Imm Gran Abs Auto 0.02 X10*3/uL (0.00-0.03); Imm Gran Pct Auto 0.4 % (0.0-0.4); Lymphocytes Percent Auto 17.6 % (20-40); Mean Corpuscular HGB Conc 28.5 g/dl (31.0-35.0); Mean Corpuscular Hemoglobin 25.2 pg (27.0-33.0); Mean Corpuscular Volume 88.6 fL (80.0-98.0); Mean Platelet Volume 10.3 fL (9.4-12.3); Monocytes Absolute Auto 0.2 X10*3/uL (0.1-1.2); Monocytes Percent Auto 4.2 % (2-11); Neutrophils Percent Auto 73.8 % (45-73); Platelet Count 247 X10*3/uL (160-400); Prothrombin Time 20.2 SEC (11.1-13.3); Red Cell Distribution Width 15.9 % (11.0-16.0); White Blood Count 5.5 X10*3/uL (4.8-10.8)
[2023-10-25 17:00] LABS: Partial Thromboplastin Time 38.2 SEC (26.0-36.8)
== END 2023-10-25 12:57 | disposition home or self-care (01) ==
LOC: HO.HMGCLNP 12:56
PROVIDERS: PCP Family Medicine; Visit Provider Family Medicine
DX: N39.0 Urinary tract infection, site not specified (principal); E11.9 Type 2 diabetes mellitus without complications; N13.30 Unspecified hydronephrosis; D64.9 Anemia, unspecified; Z79.01 Long term (current) use of anticoagulants
CPT/HCPCS: 85025; 85610; 85730

== ENCOUNTER 2024-01-16 10:00 | Outpatient (REF) | payer MEDICARE, OTHER, SELFPAY ==
[2024-01-16 13:27] LABS: MANUAL DIFF FLAG NO
[2024-01-16 13:33] LABS: Basophils Percent Auto 0.8 % (0-2); Eosinophils Absolute Auto 0.2 X10*3/uL (0.0-0.4); Eosinophils Percent Auto 2.9 % (0-4); Hematocrit 34.4 % (37.0-47.0); Hemoglobin 10.1 g/dl (12.0-16.0); Imm Gran Abs Auto 0.02 X10*3/uL (0.00-0.03); Imm Gran Pct Auto 0.4 % (0.0-0.4); Lymphocytes Absolute Auto 0.8 X10*3/uL (1.2-4.9); Lymphocytes Percent Auto 14.3 % (20-40); Mean Corpuscular HGB Conc 29.4 g/dl (31.0-35.0); Mean Corpuscular Hemoglobin 25.4 pg (27.0-33.0); Mean Corpuscular Volume 86.6 fL (80.0-98.0); Mean Platelet Volume 10.3 fL (9.4-12.3); Monocytes Absolute Auto 0.3 X10*3/uL (0.1-1.2); Neutrophils Percent Auto 76.6 % (45-73); Platelet Count 191 X10*3/uL (160-400); Red Blood Count 3.97 X10*6/uL (4.20-5.50); Red Cell Distribution Width 15.2 % (11.0-16.0); White Blood Count 5.3 X10*3/uL (4.8-10.8)
[2024-01-16 13:39] LABS: INTERNATIONAL NORM RATIO 1.2 (0.9-1.1); Prothrombin Time 14.3 SEC (11.1-13.3)
[2024-01-16 13:41] LABS: Partial Thromboplastin Time 34.1 SEC (26.0-36.8)
[2024-01-16 14:17] LABS: Anion Gap 14 (12-20); Blood Urea Nitrogen 34 mg/dL (9-16); Carbon Dioxide 33 mmol/L (22-29); Chloride 101 mmol/L (96-108); Estimated Glomerular Filt Rate 48; Glucose Random 100 mg/dL (60-115); Iron 51 mcg/dL (30-160); Percent Iron Saturation 25 % (15-50); Sodium 144 mmol/L (135-145); Total Iron Binding Capacity 201 mcg/dL (228-428); Unsaturated Iron Binding 150 ug/dL
== END 2024-01-16 10:01 | disposition home or self-care (01) ==
LOC: HO.HVNA 10:00
PROVIDERS: PCP Family Medicine; Visit Provider Family Medicine
DX: N18.31 Chronic kidney disease, stage 3a (principal); D50.9 Iron deficiency anemia, unspecified; G90.09 Other idiopathic peripheral autonomic neuropathy
CPT/HCPCS: 36415; 80051; 82565; 82947; 83540; 84520; 85025; 85610; 85730

== ENCOUNTER 2024-05-08 10:30 | Outpatient (REF) | payer MEDICARE, OTHER, SELFPAY ==
[2024-05-08 13:26] LABS: MANUAL DIFF FLAG NO
[2024-05-08 13:30] LABS: Basophils Percent Auto 0.6 % (0-2); Eosinophils Absolute Auto 0.2 X10*3/uL (0.0-0.4); Eosinophils Percent Auto 3.1 % (0-4); Hematocrit 29.8 % (37.0-47.0); Hemoglobin 8.6 g/dl (12.0-16.0); Imm Gran Abs Auto 0.01 X10*3/uL (0.00-0.03); Imm Gran Pct Auto 0.2 % (0.0-0.4); Lymphocytes Absolute Auto 0.8 X10*3/uL (1.2-4.9); Lymphocytes Percent Auto 16.2 % (20-40); Mean Corpuscular HGB Conc 28.9 g/dl (31.0-35.0); Mean Corpuscular Hemoglobin 25.3 pg (27.0-33.0); Mean Corpuscular Volume 87.6 fL (80.0-98.0); Monocytes Absolute Auto 0.2 X10*3/uL (0.1-1.2); Monocytes Percent Auto 4.4 % (2-11); Neutrophils Absolute Auto 3.6 x10*3/uL (2.0-8.3); Neutrophils Percent Auto 75.5 % (45-73); Platelet Count 238 X10*3/uL (160-400); Red Cell Distribution Width 14.4 % (11.0-16.0); White Blood Count 4.8 X10*3/uL (4.8-10.8)
[2024-05-08 13:41] LABS: Alanine Aminotransferase 7 U/L (0-31); Anion Gap 13 (12-20); Aspartate Amino Transferase 9 U/L (5-31); Blood Urea Nitrogen 42 mg/dL (9-16); Carbon Dioxide 33 mmol/L (22-29); Chloride 99 mmol/L (96-108); Estimated Glomerular Filt Rate 36; Glucose Fasting 143 mg/dL (60-99); Potassium 4.2 mmol/L (3.3-5.1); Sodium 141 mmol/L (135-145)
[2024-05-08 13:45] LABS: Estimated Average Glucose 151 mg/dL; Hemoglobin A1c % 6.9 % (<6.0)
== END 2024-05-08 10:31 | disposition home or self-care (01) ==
LOC: HO.HVNA 10:30
PROVIDERS: PCP Family Medicine; Visit Provider Family Medicine
DX: E11.9 Type 2 diabetes mellitus without complications (principal); I10 Essential (primary) hypertension; D50.9 Iron deficiency anemia, unspecified; E78.00 Pure hypercholesterolemia, unspecified; Z79.899 Other long term (current) drug therapy
CPT/HCPCS: 36415; 80051; 82550; 82565; 82947; 83036; 84450; 84460; 84520; 85025

== ENCOUNTER 2024-06-27 07:49 | Outpatient (REF) | payer MEDICARE, OTHER, SELFPAY ==
[2024-06-27 13:32] LABS: Appearance Urine Turbid; Color Urine Red; Glucose Urine UA Negative (Negative); Leukocyte Esterase Urine Large (3+) (Negative); Nitrite Urine Negative (Negative); PH 5.5 (5.0-9.0); UMIC TRIGGER UACC YES; Urine Blood Large (3+) (Negative); Urine Ketones Negative (Negative); Urine Protein 100 (2+) mg/dL (Neg-Trace)
[2024-06-27 13:42] LABS: Bacteria Urine 4+ (None Seen); RBC Urine >20 /HPF (0-2); Squamous Epithelial Cell Urine 0-2 /HPF (0-2); UACC Culture Trigger YES; WBC Urine >50 /HPF (0-5)
== END 2024-06-27 07:50 | disposition home or self-care (01) ==
LOC: HO.HMGCLNP 07:49
PROVIDERS: Visit Provider Family Medicine
DX: E11.22 Type 2 diabetes mellitus with diabetic chronic kidney disease (principal)
CPT/HCPCS: 81001; 87086; 87088; 87186

== ENCOUNTER 2024-07-15 12:30 | Outpatient (REF) | payer MEDICARE, OTHER, SELFPAY ==
[2024-07-15 16:06] LABS: Appearance Urine Cloudy; Color Urine Yellow; Glucose Urine UA Negative (Negative); Leukocyte Esterase Urine Large (3+) (Negative); Nitrite Urine Positive (Negative); Specific Gravity - Urine 1.015 (1.005-1.025); UMIC TRIGGER UACC YES; Urine Blood Moderate (2+) (Negative); Urine Ketones Negative (Negative); Urine Protein Negative (Neg-Trace)
[2024-07-15 16:14] LABS: Bacteria Urine 4+ (None Seen); RBC Urine 0-2 /HPF (0-2); UACC Culture Trigger YES; WBC Urine >50 /HPF (0-5)
[2024-07-15 16:15] LABS: Hyaline Casts Urine 0-2 /LPF (0-2)
== END 2024-07-15 12:31 | disposition home or self-care (01) ==
LOC: HO.HMGCLNP 12:30
PROVIDERS: Visit Provider Family Medicine
DX: N39.0 Urinary tract infection, site not specified (principal)
CPT/HCPCS: 81001; 81003; 87086; 87088; 87186

== ENCOUNTER 2024-08-19 13:00 | Outpatient (REF) | payer MEDICARE, OTHER, SELFPAY ==
--- OUTSIDE RECORDS SUMMARY | 2024-08-19 14:21 | XMS_ITS | Clinical Summary ---
Author Organization Unknown Care Team Providers Care Intelligence Research Specialist Name Role Phone АНДРЕЙ DANIELS, SHELIA Unavailable Unavailable KARMEN JAMESON OT Unavailable Unavailkeli DOMÍNGUEZ RN, SKYE Unavailable Unavailable GORAN NAVA LPN, SHAHEED Unavailable Unavail able JOSE THOMPSON, [employer], ANNA Un available Unavailable MAURICE MEEK, PÉREZ Unavailable Unavailable Payers Payer Name Policy Type Policy Number Effective Date Expira tion Date MEDICARE - [facility] [place] - PDGM [id number] Problems Condition Name Condition Details Condition Category Status Onset Date Resolution Date Last Treatment Date Treating Clinician Comments HYP HRT AND CHR KDNY DIS W HRT FAIL AND STG 1-4/UNSP CHR KDNY Active 09-04 00:00: 00 UNSPECIFIED DIASTOLIC (CONGESTIVE) HEART FAILURE Active 09-04 00:00: 00 TYPE 2 DIABETES MELLITUS W DIABETIC CHRONIC KIDNEY DISEASE Active 09-04 00:00: 00 CHRONIC KIDNEY DISEASE, STAGE 3 UNSPECIFIED Active 09-04 00:00: 00 ANEMIA IN CHRONIC KIDNEY DISEASE Active 09-04 00:00: 00 ENCOUNTER FOR ATTENTION TO CYSTOSTOMY Active 09-04 00:00: 00 TYPE 2 DIABETES MELLITUS WITH DIABETIC POLYNEUROPAT HY Active 09-04 00:00: 00 MORBID (SEVERE) OBESITY DUE TO EXCESS CALORIES Active 09-04 00:00: 00 BODY MASS INDEX [BMI] 50.0-59.9, ADULT Active 09-04 00:00: 00 PRESSURE ULCER OF OTHER SITE, STAGE 2 Active 09-04 00:00: 00 CANT GANG SAWYER (CURRENT) USE OF INSULIN Active 09-04 00:00: 00 OTHER CHRONIC PAIN Active 09-04 00:00: 00 HYPERLIPIDEM IA, UNSPECIFIED Active 09-04 00:00: 00 IRON DEFICIENCY ANEMIA, UNSPECIFIED Active 09-04 00:00: 00 OTHER SPECIFIED CHRONIC OBSTRUCTIVE PULMONARY DISEASE Active 09-04 00:00: 00 DEPRESSION, UNSPECIFIED Active 09-04 00:00: 00 UNILATERAL PRIMARY OSTEOARTHRIT IS, RIGHT HIP Active 09-04 00:00: 00 ENCOUNTER FOR FITTING AND ADJUSTMENT OF URINARY DEVICE Active 09-04 00:00: 00 SOCIAL EXCLUSION AND REJECTION Active 09-04 00:00: 00 DEPENDENCE ON SUPPLEMENTAL OXYGEN Active 09-04 00:00: 00 CANT GANG SAWYER (CURRENT) USE OF INHALED STEROIDS Active 09-04 00:00: 00 Allergies, Adverse Reactions, Alerts Allergy Name Allergy Type Status Severity Reaction(s) Onset Date Inactive Date Treating Clinician Comments LATEX Propensity to adverse reactions Active 2023-09 10:24:4 2 Medications Ordered Medication Name Filled Medication Name Start Date Stop Date Current Medication? Ordering Clinician Indication Dosage Frequency Signature (SIG) Comments Components lisinopril 40 mg tablet 04-15 00:00: 00 04-22 00:00 :00 No [id number] Per instruc tions Per instructio ns (route: oral) Med Classific ation: Cardiovas cular Therapy Agents lisinopril 40 mg tablet 09-17 00:00: 00 01-02 23:59 :00 No [id number] 1 tablet DAILY 1 tablet DAILY (route: oral) Med Classific ation: Cardiovas cular Therapy Agents amlodipine 5 mg tablet 04-22 00:00: 00 Yes [id number] 1 tablet DAILY 1 tablet DAILY (route: oral) Med Classific ation: Cardiovas cular Therapy Agents atenolol 25 mg tablet 04-22 00:00: 00 Yes [id number] .5 tablet 2 TIMES DAILY .5 tablet 2 TIMES DAILY (route: oral) Med Classific ation: Cardiovas cular Therapy Agents cetirizine 10 mg tablet 04-22 00:00: 00 Yes [id number] 1 tablet DAILY 1 tablet DAILY (route: oral) Med Classific ation: Respirato ry Therapy Agents diphenoxyla te-atropine 2.5 mg-0.025 mg tablet 04-22 00:00: 00 Yes [id number] 1 tablet EVERY 12 HOURS 1 tablet EVERY 12 HOURS (route: oral) Med Classific ation: Gastroint estinal Therapy Agents Eliquis 5 mg tablet 04-22 00:00: 00 11-30 23:59 :00 No [id number] 1 tablet 2 TIMES DAILY 1 tablet 2 TIMES DAILY (route: oral) Med Classific ation: Hematolog ical Agents ferrous sulfate 325 mg (65 mg iron) tablet 04-22 00:00: 00 Yes [id number] 1 tablet DAILY 1 tablet DAILY (route: oral) Med Classific ation: Electroly te Balance-N utritiona l Products fluticasone 100 mcg-salmete rol 50 mcg/dose blistr powdr for inhalation 04-22 00:00: 00 04-28 23:59 :00 No [id number] 2 inhalat ion 2 TIMES DAILY 2 inhalation 2 TIMES DAILY (route: inhalation ) Med Classific ation: Respirato ry Therapy Agents gabapentin 300 mg capsule 04-22 00:00: 00 Yes [id number] 1 capsule 2 TIMES DAILY 1 capsule 2 TIMES DAILY (route: oral) Med Classific ation: Central Nervous System Agents insulin lispro (U-100) 100 unit/mL subcutaneou s solution 04-29 00:00: 00 10-09 23:59 :00 No [id number] 1 unit 3 TIMES A WEEK 1 unit 3 TIMES A WEEK (route: subcutaneo ) Med Classific ation: Endocrine omeprazole 20 mg capsule,del ayed release 04-22 00:00: 00 05-17 23:59 :00 No [id number] 1 capsule DAILY 1 capsule DAILY (route: oral) Med Classific ation: Gastroint estinal Therapy Agents simvastatin 40 mg tablet 04-22 00:00: 00 Yes [id number] 1 tablet BEDTIME 1 tablet BEDTIME (route: oral) Med Classific ation: Cardiovas cular Therapy Agents Tresiba FlexTouch U-200 insulin 200 unit/mL (3 mL) subcutaneou s pen 04-22 00:00: 04-28 23:59 :00 No [id number] 75 unit DAILY 75 unit DAILY (route: subcutaneo us) Med Classific ation: Endocrine cephalexin 500 mg capsule 8-23 00:00: 00 05-01 23:59 :00 No [id number] 1 capsule 2 TIMES DAILY 1 capsule 2 TIMES DAILY (route: oral) Med Classific ation: Anti-Infe ctive Agents omeprazole 20 mg capsule,del ayed release 9-12 00:00: 00 04-28 23:59 :00 No [id number] 20 mg 2 TIMES DAILY 20 mg 2 TIMES DAILY (route: oral) Med Classific ation: Gastroint estinal Therapy Agents cephalexin 500 mg capsule 2022-09 1-16 00:00: 00 07-27 23:59 :00 No [id number] 1 capsule 3 TIMES DAILY 1 capsule 3 TIMES DAILY (route: oral) Med Classific ation: Anti-Infe ctive Agents Mucinex DM 60 mg-1,200 mg tablet,exte nded release 12 hr 1-10 00:00: 00 04-28 23:59 :00 No [id number] 1 tablet EVERY 12 HOURS 1 tablet EVERY 12 HOURS (route: oral) Med Classific ation: Respirato ry Therapy Agents Lasix 20 mg tablet 2-05 00:00: 00 04-28 23:59 :00 No [id number] 1 tablet DAILY 1 tablet DAILY (route: oral) Med Classific ation: Cardiovas cular Therapy Agents Acidophilus capsule 2-05 00:00: 00 Yes [id number] 1 capsule DAILY 1 capsule DAILY (route: oral) Med Classific ation: Gastroint estinal Therapy Agents multivitami n with minerals tablet 2-05 00:00: 00 04-28 23:59 :00 No [id number] 1 tablet DAILY 1 tablet DAILY (route: oral) Med Classific ation: Electroly te Balance-N utritiona l Products Jardiance 10 mg tablet 2-05 00:00: 00 11-08 23:59 :00 No [id number] 1 tablet EVERY AM 1 tablet EVERY AM (route: oral) Med Classific ation: Endocrine albuterol sulfate HFA 90 mcg/actuati on aerosol inhaler 2- 00:00: 00 04-28 23:59 :00 No [id number] for shortness of breath 2 puff NEEDED 2 puff NEEDED (route: inhalation ) Med Classific ation: Respirato ry Therapy Agents insulin lispro (U-100) 100 unit/mL subcutaneou s solution - 00:00: 00 04-28 00:00 :00 No [id number] Per instruc tions 3 TIMES DAILY Per instructio ns 3 TIMES DAILY (route: subcutaneo us) Med Classific ation: Endocrine cephalexin 500 mg capsule 2- 00:00: 00 10-20 23:59 :00 No [id number] 1 capsule 2 TIMES DAILY 1 capsule 2 TIMES DAILY (route: oral) Med Classific ation: Anti-Infe ctive Agents Lasix 20 mg tablet 5- 00:00: 00 01-06 23:59 :00 No [id number] 20 mg DAILY 20 mg DAILY (route: oral) Med Classific ation: Cardiovas cular Therapy Agents lisinopril 10 mg tablet 5-19 00:00: 00 Yes [id number] 10 mg DAILY 10 mg DAILY (route: oral) Med Classific ation: Cardiovas cular Therapy Agents furosemide 20 mg tablet - 00:00: 00 03-28 23:59 :00 No [id number] 20 mg DAILY 20 mg DAILY (route: oral) Med Classific ation: Cardiovas cular Therapy Agents furosemide 40 mg tablet 04-28 00:00: 00 Yes [id number] 1 tablet DAILY 1 tablet DAILY (route: oral) Med Classific ation: Cardiovas cular Therapy Agents insulin lispro (U-100) 100 unit/mL subcutaneou s pen 04-28 00:00: 00 Yes [id number] Per instruc tions 3 TIMES DAILY Per instructio ns 3 TIMES DAILY (route: subcutaneo us) Med Classific ation: Endocrine Tresiba FlexTouch U-200 insulin 200 unit/mL (3 mL) subcutaneou s pen 04-28 00:00: 00 Yes [id number] 50 unit BEDTIME 50 unit BEDTIME (route: subcutaneo us) Med Classific ation: Endocrine 8 Hour Pain Reliever 650 mg tablet,exte nded release 04-28 00:00: 00 Yes [id number] 2 tablet EVERY 8 HOURS 2 tablet EVERY 8 HOURS (route: oral) Med Classific ation: Analgesic , Anti-infl ammatory or Antipyret ic albuterol sulfate HFA 90 mcg/actuati on aerosol inhaler 04-28 00:00: 00 Yes [id number] 2 puff EVERY 6 HOURS 2 puff EVERY 6 HOURS (route: inhalation ) Med Classific ation: Respirato ry Therapy Agents magnesium 400 mg (as magnesium oxide) capsule 04-28 00:00: 00 Yes [id number] 1 capsule DAILY 1 capsule DAILY (route: oral) Med Classific ation: Electroly te Balance-N utritiona l Products nystatin 100,000 unit/gram topical powder 04-28 00:00: 00 Yes [id number] Per instruc tions 2 TIMES DAILY Per instructio ns 2 TIMES DAILY (route: topical) Med Classific ation: Dermatolo gical ondansetron HCl 4 mg tablet 04-28 00:00: 00 Yes [id number] 1 tablet EVERY 8 HOURS 1 tablet EVERY 8 HOURS (route: oral) Med Classific ation: Gastroint estinal Therapy Agents Arnuity Ellipta 100 mcg/actuati on powder for inhalation 04-28 00:00: 00 Yes [id number] 1 inhalat ion NOON 1 inhalation NOON (route: inhalation ) Med Classific ation: Respirato ry Therapy Agents omeprazole 20 mg tablet,steven yed release 04-28 00:00: 00 Yes [id number] 1 tablet DAILY 1 tablet DAILY (route: oral) Med Classific ation: Gastroint estinal Therapy Agents oxygen gas for inhalation 04-28 00:00: 00 Yes [id number] 2 Liter O2 - CONTINUOUS 2 Liter O2 - CONTINUOUS (route: inhalation ) Alternate Route: O2 - NASAL CANNULA. Med Classific ation: Medical Supplies and Durable Medical Equipment (DME) benzonatate 100 mg capsule 04-28 00:00: 00 Yes [id number] 1 capsule 3 TIMES DAILY 1 capsule 3 TIMES DAILY (route: oral) Med Classific ation: Respirato ry Therapy Agents Immunizations Ordered Immunization Name Filled Immunization Name Date Status Comments Refusal Reason COVID-19, COVID-19 2023-09-13 00:00:00 INFLUENZA, TIV (INACTIVATED) 2023-08-02 00:00:00 Vital Signs Vital Name Observation Time Observation Value Commen ts Temperature 2024-08-07 14:22:00.000 97.3 [degF] Temperature 2024-07-30 11:51:00.000 97.3 [degF] Temperature 2024-07-26 14:40:00.000 98.4 [degF] Temperature 2024-07-23 11:34:00.000 97.3 [degF] Temperature 2024-07-17 17:04:00.000 97 [degF] Temperature 2024-07-15 16:00:00.000 97 [degF] Temperature 2024-07-12 07:20:00.000 98.5 [degF] Temperature 2024-07-10 11:13:00.000 97.1 [degF] Pulse 2024-08-07 14:22:00.000 56 /min Pulse 2024-07-30 11:51:00.000 56 /min Pulse 2024-07-26 14:40:00.000 72 /min Pulse 2024-07-23 11:34:00.000 70 /min Pulse 2024-07-17 17:04:00.000 68 /min Pulse 2024-07-15 16:00:00.000 60 /min Pulse 2024-07-12 07:20:00.000 98 /min Pulse 2024-07-10 11:13:00.000 58 /min O2 Saturation (%) 2024-08-07 14:22:00.000 99 % O2 Saturation (%) 2024-07-30 11:51:00.000 99 % O2 Saturation (%) 2024-07-26 14:40:00.000 98 % O2 Saturation (%) 2024-07-23 11:34:00.000 96 % O2 Saturation (%) 2024-07-17 17:04:00.000 97 % O2 Saturation (%) 2024-07-15 16:00:00.000 96 % O2 Saturation (%) 2024-07-12 07:20:00.000 95 % O2 Saturation (%) 2024-07-10 11:13:00.000 97 % Respirations 2024-07-26 14:40:00.000 16 /min Respirations 2024-07-17 17:04:00.000 18 /min Respirations 2024-07-15 16:00:00.000 18 /min Respirations 2024-07-12 07:20:00.000 16 /min Respirations 2024-07-10 11:13:00.000 18 /min Systolic Blood Pressure 2024-08-07 14:22:00.000 120 mm [Hg] Systolic Blood Pressure 2024-07-30 11:51:00.000 120 mm [Hg] Systolic Blood Pressure 2024-07-26 14:40:00.000 114 mm [Hg] Systolic Blood Pressure 2024-07-23 11:34:00.000 120 mm [Hg] Systolic Blood Pressure 2024-07-17 17:04:00.000 122 mm [Hg] Systolic Blood Pressure 2024-07-15 16:00:00.000 122 mm [Hg] Systolic Blood Pressure 2024-07-12 07:20:00.000 114 mm [Hg] Systolic Blood Pressure 2024-07-10 11:13:00.000 118 mm [Hg] Diastolic Blood Pressure 2024-08-07 14:22:00.000 60 mm [Hg] Diastolic Blood Pressure 2024-07-30 11:51:00.000 62 mm [Hg] Diastolic Blood Pressure 2024-07-26 14:40:00.000 74 mm [Hg] Diastolic Blood Pressure 2024-07-23 11:34:00.000 68 mm [Hg] Diastolic Blood Pressure 2024-07-17 17:04:00.000 64 mm [Hg] Diastolic Blood Pressure 2024-07-15 16:00:00.000 64 mm [Hg] Diastolic Blood Pressure 2024-07-12 07:20:00.000 70 mm [Hg] Diastolic Blood Pressure 2024-07-10 11:13:00.000 62 mm [Hg] Plan of Treatment Planned Activity Planned Date Details Comments Future Scheduled Test SKILLED NU RSE TO EVALUATE PATIENT, IDENTIFY PRIMARY AND CO-MORBID CONDITIONS CODED PER CODING GUIDELINES, AND DEVELOP PATIENT SPECIFIC PLAN OF CARE THAT INCLUDES PATIENT GOAL FOR HOME HEALTH. [code = SKILLED NURSE TO EVALUATE PATIENT, IDENTIFY PRIMARY AND CO-MORBID CONDITIONS CODED PER CODING GUIDELINES, AND DEVELOP PATIENT SPECIFIC PLAN OF CARE THAT INCLUDES PATIENT GOAL FOR HOME HEALTH.] Future Scheduled Test SKILLED NU RSE TO REVIEW PATIENT MEDICATIONS. INSTRUCT PATIENT/CAREGIVER ON MONITORING OF EFFECTIVENESS, ADVERSE DRUG REACTIONS, SIDE EFFECTS OF ALL MEDICATIONS (PRESCRIPTION/-OTC), AND HOW AND WHEN TO REPORT PROBLEMS. [code = SKILLED NURSE TO REVIEW PATIENT MEDICATIONS. INSTRUCT PATIENT/CAREGIVER ON MONITORING OF EFFECTIVENESS, ADVERSE DRUG REACTIONS, SIDE EFFECTS OF ALL MEDICATIONS (PRESCRIPTION/-OTC), AND HOW AND WHEN TO REPORT PROBLEMS.] Future Scheduled Test NEED FOR C ONTINUATION OF PHYSICAL THERAPY SERVICES [code = NEED FOR CONTINUATION OF PHYSICAL THERAPY SERVICES] Future Scheduled Test OXYGEN VIA NASAL CANNULA @ 2 LITERS CONTINUOUS. SKILLED NURSE FOR O/A AND SKILLED TEACHING OF SAFE OXYGEN USE IN THE HOME. [code = OXYGEN VIA NASAL CANNULA @ 2 LITERS CONTINUOUS. SKILLED NURSE FOR O/A AND SKILLED TEACHING OF SAFE OXYGEN USE IN THE HOME.] Future Scheduled Test SKILLED NU RSE MAY COLLECT URINE SAMPLE FOR URINE REAGENT STRIP TESTING AND/OR URINALYSIS WITH CS 1-3 PRN IF INDICATED FOR SIGNS AND SYMPTOMS OF UTI. IF REAGENT STRIP TEST IS POSITIVE FOR UTI, SKILLED NURSE TO TAKE URINE SAMPLE TO LAB FOR URINE CS AND REPORT RESULTS TO PHYSICIAN. [code = SKILLED NURSE MAY COLLECT URINE SAMPLE FOR URINE REAGENT STRIP TESTING AND/OR URINALYSIS WITH CS 1-3 PRN IF INDICATED FOR SIGNS AND SYMPTOMS OF UTI. IF REAGENT STRIP TEST IS POSITIVE FOR UTI, SKILLED NURSE TO TAKE URINE SAMPLE TO LAB FOR URINE CS AND REPORT RESULTS TO PHYSICIAN.] Future Scheduled Test SKILLED NU RSE FOR O/A, TEACHING AND MANAGEMENT OF CKD, UTI FOR EARLY IDENTIFICATION OF EXACERBATION OF DISEASE PROCESS [code = SKILLED NURSE FOR O/A, TEACHING AND MANAGEMENT OF CKD, UTI FOR EARLY IDENTIFICATION OF EXACERBATION OF DISEASE PROCESS] Future Scheduled Test SKILLED NU RSE FOR O/A OF SELF-CARE DEFICITS AND TO PROVIDE TEACHING RELATED TO SAFE PROVISION OF ADLS. [code = SKILLED NURSE FOR O/A OF SELF-CARE DEFICITS AND TO PROVIDE TEACHING RELATED TO SAFE PROVISION OF ADLS.] Future Scheduled Test SKILLED NU RSE TO PERFORM AND RECORD BLOOD SUGAR READING , AND PRN FOR SIGNS AND SYMPTOMS OF HYPO/HYPERGLYCEMIA. [code = SKILLED NURSE TO PERFORM AND RECORD BLOOD SUGAR READING , AND PRN FOR SIGNS AND SYMPTOMS OF HYPO/HYPERGLYCEMIA.] Future Scheduled Test SKILLED NU RSE FOR O/A AND SKILLED TEACHING RELATED TO ALTERED SKIN INTEGRITY [code = SKILLED NURSE FOR O/A AND SKILLED TEACHING RELATED TO ALTERED SKIN INTEGRITY] Future Scheduled Test SKILLED NU RSE TO INSTRUCT PATIENT/CAREGIVER ON COPD TO INCLUDE TEACHING AND SELF-MANAGEMENT RELATED TO COPD DISEASE PROCESS, SIGNS AND SYMPTOMS, AND COMPLICATIONS. [code = SKILLED NURSE TO INSTRUCT PATIENT/CAREGIVER ON COPD TO INCLUDE TEACHING AND SELF-MANAGEMENT RELATED TO COPD DISEASE PROCESS, SIGNS AND SYMPTOMS, AND COMPLICATIONS.] Future Scheduled Test SKILLED NU RSE FOR O/A, TEACHING AND SELF-MANAGEMENT RELATED TO HEART FAILURE. INSTRUCT PATIENT/CAREGIVER ON SIGNS AND SYMPTOMS OF EXACERBATION TO REPORT AND IMPORTANCE OF OBTAINING AND RECORDING DAILY WEIGHT AND/OR MEASUREMENTS. SN OR TRAINED PATIENT/CAREGIVER TO OBTAIN WEIGHT DAILY AND WEIGHT GAIN OF 2 LBS OVERNIGHT OR 5 LBS IN 1 WEEK TO BE REPORTED TO PHYSICIAN/PROVIDER. IF UNABLE TO WEIGH PATIENT, SN OR TRAINED PATIENT/CAREGIVER TO OBTAIN MEASUREMENT OF LE IN CM DAILY AND REPORT AN INCREASE OF 1 CM TO PHYSICIAN/PROVIDER. [code = SKILLED NURSE FOR O/A, TEACHING AND SELF-MANAGEMENT RELATED TO HEART FAILURE. INSTRUCT PATIENT/CAREGIVER ON SIGNS AND SYMPTOMS OF EXACERBATION TO REPORT AND IMPORTANCE OF OBTAINING AND RECORDING DAILY WEIGHT AND/OR MEASUREMENTS. SN OR TRAINED PATIENT/CAREGIVER TO OBTAIN WEIGHT DAILY AND WEIGHT GAIN OF 2 LBS OVERNIGHT OR 5 LBS IN 1 WEEK TO BE REPORTED TO PHYSICIAN/PROVIDER. IF UNABLE TO WEIGH PATIENT, SN OR TRAINED PATIENT/CAREGIVER TO OBTAIN MEASUREMENT OF LE IN CM DAILY AND REPORT AN INCREASE OF 1 CM TO PHYSICIAN/PROVIDER.] Future Scheduled Test SKILLED NU RSE FOR O/A AND SKILLED TEACHING RELATED TO SIGNS AND SYMPTOMS AND MANAGEMENT OF ANEMIA. [code = SKILLED NURSE FOR O/A AND SKILLED TEACHING RELATED TO SIGNS AND SYMPTOMS AND MANAGEMENT OF ANEMIA.] Future Scheduled Test SKILLED NU RSE FOR O/A AND TEACHING OF DIABETIC MANAGEMENT INCLUDING BLOOD SUGAR MONITORING/USE OF GLUCOMETER, DIABETIC DIET, LOWER EXTREMITY SKIN INSPECTION, PROPER SKIN/FOOT CARE, AND SIGNS AND SYMPTOMS HYPO/HYPERGLYCEMIA TO REPORT. [code = SKILLED NURSE FOR O/A AND TEACHING OF DIABETIC MANAGEMENT INCLUDING BLOOD SUGAR MONITORING/USE OF GLUCOMETER, DIABETIC DIET, LOWER EXTREMITY SKIN INSPECTION, PROPER SKIN/FOOT CARE, AND SIGNS AND SYMPTOMS HYPO/HYPERGLYCEMIA TO REPORT.] Future Scheduled Test SKILLED NU RSE FOR O/A AND SKILLED TEACHING RELATED TO SIGNS AND SYMPTOMS AND MANAGEMENT OF RIGHT HIP OA. [code = SKILLED NURSE FOR O/A AND SKILLED TEACHING RELATED TO SIGNS AND SYMPTOMS AND MANAGEMENT OF RIGHT HIP OA.] Future Scheduled Test PATIENT BEACH S A RISK OF HOSPITALIZATION AND ED USE. SKILLED NURSE TO ESTABLISH SUPPORT MEASURES TO MINIMIZE RISK OF HOSPITALIZATION AND ED USE, AND INSTRUCT PATIENT/CAREGIVER ON METHODS TO REDUCE AVOIDABLE HOSPITALIZATION AND ED USE. [code = PATIENT HAS A RISK OF HOSPITALIZATION AND ED USE. SKILLED NURSE TO ESTABLISH SUPPORT MEASURES TO MINIMIZE RISK OF HOSPITALIZATION AND ED USE, AND INSTRUCT PATIENT/CAREGIVER ON METHODS TO REDUCE AVOIDABLE HOSPITALIZATION AND ED USE.] Future Scheduled Test SKILLED NU RSE TO PROVIDE INSTRUCTION TO PATIENT/CAREGIVER RELATED TO DISCHARGE PLANNING. [code = SKILLED NURSE TO PROVIDE INSTRUCTION TO PATIENT/CAREGIVER RELATED TO DISCHARGE PLANNING.] Future Scheduled Test SKILLED NU RSE TO PERFORM HOME SAFETY AND FALL ASSESSMENT AND PROVIDE INSTRUCTION TO IMPLEMENT HOME SAFETY AND FALL PREVENTION STRATEGIES. [code = SKILLED NURSE TO PERFORM HOME SAFETY AND FALL ASSESSMENT AND PROVIDE INSTRUCTION TO IMPLEMENT HOME SAFETY AND FALL PREVENTION STRATEGIES.] Future Scheduled Test SKILLED NU RSE FOR OBSERVATION AND ASSESSMENT OF PATIENTS PAIN LEVEL AND EFFECTIVENESS OF PAIN MANAGEMENT REGIMEN. SKILLED NURSE TO INSTRUCT PATIENT/CAREGIVER REGARDING PHARMACOLOGIC AND NON-PHARMACOLOGIC PAIN CONTROL MEASURES. SKILLED NURSE TO REPORT TO PHYSICIAN IF PAIN IS UNCONTROLLED WITH CURRENT PAIN MANAGEMENT REGIMEN. [code = SKILLED NURSE FOR OBSERVATION AND ASSESSMENT OF PATIENTS PAIN LEVEL AND EFFECTIVENESS OF PAIN MANAGEMENT REGIMEN. SKILLED NURSE TO INSTRUCT PATIENT/CAREGIVER REGARDING PHARMACOLOGIC AND NON-PHARMACOLOGIC PAIN CONTROL MEASURES. SKILLED NURSE TO REPORT TO PHYSICIAN IF PAIN IS UNCONTROLLED WITH CURRENT PAIN MANAGEMENT REGIMEN.] Future Scheduled Test SKILLED NU RSE TO ASSESS PATIENT'S SKIN INTEGRITY AND INSTRUCT PATIENT/CAREGIVER ON MEASURES TO PREVENT PRESSURE ULCERS. [code = SKILLED NURSE TO ASSESS PATIENT'S SKIN INTEGRITY AND INSTRUCT PATIENT/CAREGIVER ON MEASURES TO PREVENT PRESSURE ULCERS.] Future Scheduled Test SKILLED NU RSE TO PROVIDE ASSESSMENT AND TEACHING/REINFORCEMENT OF MANAGEMENT OF DEPRESSION INCLUDING DISEASE PROCESS, MEDICATION MANAGEMENT, COPING SKILLS AND IDENTIFY CHANGES ASSOCIATED WITH DEPRESSIVE DISORDERS FOR EARLY INTERVENTION. [code = SKILLED NURSE TO PROVIDE ASSESSMENT AND TEACHING/REINFORCEMENT OF MANAGEMENT OF DEPRESSION INCLUDING DISEASE PROCESS, MEDICATION MANAGEMENT, COPING SKILLS AND IDENTIFY CHANGES ASSOCIATED WITH DEPRESSIVE DISORDERS FOR EARLY INTERVENTION. ] Future Scheduled Test SKILLED NU RSE TO INSTRUCT PATIENT/CAREGIVER ON CARE AND MANAGEMENT OF SUPRAPUBIC CATHETER. SKILLED NURSE FOR SUPRAPUBIC CATHETER INSERTION/MAINTENANCE UTILIZING 16 FR 10 CC CATHETER, CHANGE Q4 WEEKS AND PRN FOR LEAKING OR MALFUNCTIONING. IRRIGATE SUPRAPUBIC CATHETER WITH 30-60CC NORMAL SALINE PRN BLOCKAGE/LEAKAGE, HEAVY SEDIMENT. 1 - 3 PRN INTERMEDIATE VISITS FOR CATHETER CHANGE(S) AND/OR TROUBLESHOOTING. [code = SKILLED NURSE TO INSTRUCT PATIENT/CAREGIVER ON CARE AND MANAGEMENT OF SUPRAPUBIC CATHETER. SKILLED NURSE FOR SUPRAPUBIC CATHETER INSERTION/MAINTENANCE UTILIZING 16 FR 10 CC CATHETER, CHANGE Q4 WEEKS AND PRN FOR LEAKING OR MALFUNCTIONING. IRRIGATE SUPRAPUBIC CATHETER WITH 30-60CC NORMAL SALINE PRN BLOCKAGE/LEAKAGE, HEAVY SEDIMENT. 1 - 3 PRN INTERMEDIATE VISITS FOR CATHETER CHANGE(S) AND/OR TROUBLESHOOTING.] Future Scheduled Test SKILLED NU RSE TO INSTRUCT PATIENT/CAREGIVER ON S/S OF POLYNEUROPATHY AND METHODS TO MANAGE. [code = SKILLED NURSE TO INSTRUCT PATIENT/CAREGIVER ON S/S OF POLYNEUROPATHY AND METHODS TO MANAGE.] Goal 2023-10-11 Patient Goal - GET BACK TO WHERE I WAS Goal 2024-01-08 Patient Goal - GET BACK TO WHERE I WAS Goal 2023-11-09 Patient Goal - GET BACK TO WHERE I WAS Goal 2024-03-08 Patient Goal - GET BACK TO WHERE I WAS Goal 2024-04-28 Patient Goal - GET BACK TO WHERE I WAS Goal 2024-07-04 Patient Goal - GET BACK TO WHERE I WAS Goal 2024-05-08 Patient Goal - GET BACK TO WHERE I WAS Goal Patient Goal - GET BACK TO WHERE I WAS Goal Provider Goal - A PLAN OF CARE WILL BE ESTABLISHED THAT MEETS PATIENT'S INTERMEDIATE NEEDS AND INCLUDES PATIENT GOAL FOR HOME HEALTH. Goal Provider Goal - PATIENT/CAREGIVER WILL VERBALIZE UNDERSTANDING OF EDUCATION PROVIDED ON MEDICATIONS BY THE END OF THE CERTIFICATION PERIOD. Goal Provider Goal - PHYSICAL THERAPY SERVICES TO CONTINUE AND PLAN OF TREATMENT CARE WILL BE RE-ESTABLISHED/UPDATED IN THE NEW CERTIFICATION PERIOD. Goal Provider Goal - PATIENT/CAREGIVER WILL VERBALIZE/DEMONSTRATE UNDERSTANDING OF SAFE OXYGEN USE IN THE HOME THROUGHOUT THE EPISODE. Goal Provider Goal - URINE SPECIMEN WILL BE OBTAINED PRN FOR SIGNS AND SYMPTOMS OF UTI AND RESULTS WILL BE REPORTED TO PHYSICIAN THROUGHOUT THE CERTIFICATION PERIOD. Goal Provider Goal - PATIENT/CAREGIVER WILL VERBALIZE UNDERSTANDING OF GENITOURINARY DISEASE PROCESS, AND EXACERBATIONS OF GENITOURINARY DISEASE WILL BE PROMPTLY IDENTIFIED FOR EARLY INTERVENTION THROUGHOUT THE CERTIFICATION PERIOD. Goal Provider Goal - PATIENT/CAREGIVER WILL VERBALIZE/DEMONSTRATE UNDERSTANDING OF SAFE PROVISION OF ADLS BY THE END OF THE CERTIFICATION PERIOD. Goal Provider Goal - BLOOD SUGAR READING WILL BE OBTAINED ORDERED THROUGHOUT CERTIFICATION PERIOD. Goal Provider Goal - PATIENT/CAREGIVER WILL VERBALIZE/DEMONSTRATE UNDERSTANDING OF TEACHING RELATED TO ALTERED SKIN INTEGRITY BY END OF CERTIFICATION PERIOD. Goal Provider Goal - PATIENT/CAREGIVER WILL VERBALIZE/DEMONSTRATE KNOWLEDGE AND MANAGEMENT OF COPD BY END OF EPISODE. Goal Provider Goal - PATIENT/CAREGIVER WILL VERBALIZE/DEMONSTRATE KNOWLEDGE AND MANAGEMENT OF HEART FAILURE DISEASE PROCESS BY END OF EPISODE. Goal Provider Goal - PATIENT/CARGIVER WILL VERBALIZE UNDERSTANDING OF ANEMIA INCLUDING SIGNS AND SYMPTOMS, MANAGEMENT OF COMPLICATIONS, AND PRESCRIBED TREATMENT REGIMEN BY END OF EPISODE. Goal Provider Goal - PATIENT/CAREGIVER WILL VERBALIZE/DEMONSTRATE KNOWLEDGE OF DIABETIC MANAGEMENT. CHANGES IN DIABETIC STATUS WILL BE IDENTIFIED AND REPORTED TO PHYSICIAN FOR PROMPT INTERVENTION THROUGHOUT THE CERTIFICATION PERIOD. Goal Provider Goal - PATIENT/CAREGIVER WILL VERBALIZE UNDERSTANDING OF MUSCULOSKELETAL DISEASE INCLUDING SIGNS AND SYMPTOMS, MANAGEMENT, AND PRESCRIBED TREATMENT REGIMEN BY END OF EPISODE. Goal Provider Goal - PATIENT WILL HAVE SUPPORT MEASURES ESTABLISHED TO PREVENT HOSPITALIZATION AND ED USE AND PATIENT/CAREGIVER WILL VERBALIZE/DEMONSTRATE METHODS TO REDUCE AVOIDABLE HOSPITALIZATION AND ED USE BY END OF EPISODE. Goal Provider Goal - PATIENT/CAREGIVER WILL VERBALIZE UNDERSTANDING OF DISCHARGE PLANNING INSTRUCTIONS BY DATE OF DISCHARGE. Goal Provider Goal - PATIENT/CAREGIVER WILL VERBALIZE/DEMONSTRATE EFFECTIVE HOME SAFETY AND FALL PREVENTION STRATEGIES THROUGHOUT CERTIFICATION PERIOD. Goal Provider Goal - PATIENT/CAREGIVER WILL DEMONSTRATE UNDERSTANDING OF PHARMACOLOGIC AND NONPHARMACOLOGIC PAIN CONTROL MEASURES AND PATIENT WILL HAVE IMPROVEMENT IN PAIN INTERFERING WITH ACTIVITY EVIDENCED BY PAIN CONTROLLED AT LEVEL OF 7 OR LESS BY END OF CERTIFICATION PERIOD. Goal Provider Goal - PATIENT/CAREGIVER WILL VERBALIZE UNDERSTANDING OF PRESSURE ULCER PREVENTION BY END OF THE EPISODE. Goal Provider Goal - PATIENT/CAREGIVER WILL VERBALIZE/DEMONSTRATE UNDERSTANDING OF THE MANAGEMENT OF DEPRESSION THROUGHOUT THE CERTIFICATION PERIOD AND SYMPTOMS ARE IDENTIFIED AND MANAGED TO MAINTAIN PATIENT SAFETY IN THE HOME. Goal Provider Goal - PATIENT WILL VERBALIZE TOLERANCE OF CATHETER CHANGE AND KNOWLEDGE OF REQUIRED CARE TO MANAGE SUPRAPUBIC CATHETER WITHOUT COMPLICATIONS BY THE END OF THE CERTIFICATION PERIOD Goal Provider Goal - PATIENT/CAREGIVER WILL VERBALIZE S/S OF POLYNEUROPATHY AND METHODS TO MANAGE BY END OF CERTIFICATION PERIOD. Encounters Start Date/Time End Date/Time Encounter Type Admission Type Attending Clinicians Care Facility Care Department Encounter ID Discharge Date Discharge Status Discharge Condition Discharge Reason Percent Goals Met 2023-09-13 00:00:00 2024-09-06 00:00:00 Outpatient RECERTIFIC ATSKYE [facility] [id number]
[2024-08-19 16:35] LABS: MANUAL DIFF FLAG NO
[2024-08-19 16:37] LABS: Basophils Percent Auto 0.4 % (0-2); Eosinophils Absolute Auto 0.2 X10*3/uL (0.0-0.4); Hematocrit 26.5 % (37.0-47.0); Imm Gran Abs Auto 0.04 X10*3/uL (0.00-0.03); Imm Gran Pct Auto 0.6 % (0.0-0.4); Lymphocytes Absolute Auto 0.8 X10*3/uL (1.2-4.9); Lymphocytes Percent Auto 11.4 % (20-40); Mean Corpuscular HGB Conc 30.2 g/dl (31.0-35.0); Mean Corpuscular Hemoglobin 25.2 pg (27.0-33.0); Mean Corpuscular Volume 83.3 fL (80.0-98.0); Mean Platelet Volume 10.5 fL (9.4-12.3); Monocytes Absolute Auto 0.3 X10*3/uL (0.1-1.2); Monocytes Percent Auto 3.7 % (2-11); Neutrophils Absolute Auto 5.7 x10*3/uL (2.0-8.3); Neutrophils Percent Auto 80.9 % (45-73); Platelet Count 252 X10*3/uL (160-400); Red Blood Count 3.18 X10*6/uL (4.20-5.50); Red Cell Distribution Width 14.2 % (11.0-16.0)
[2024-08-19 17:13] LABS: Anion Gap 16 (12-20); Blood Urea Nitrogen 42 mg/dL (9-16); Carbon Dioxide 23 mmol/L (22-29); Chloride 100 mmol/L (96-108); Estimated Glomerular Filt Rate 23; Glucose Random 224 mg/dL (60-115); Iron 50 mcg/dL (30-160); Percent Iron Saturation 29 % (15-50); Potassium 5.4 mmol/L (3.3-5.1); Sodium 134 mmol/L (135-145); Total Iron Binding Capacity 174 mcg/dL (228-428); Unsaturated Iron Binding 124 ug/dL
[2024-08-19 17:30] LABS: Ferritin 165 ng/mL (10-250)
[2024-08-19 17:53] LABS: Vitamin B12 427 pg/mL (200-900)
== END 2024-08-19 13:01 | disposition home or self-care (01) ==
LOC: HO.HMGCLNP 13:00
PROVIDERS: Visit Provider Family Medicine
DX: N18.30 Chronic kidney disease, stage 3 unspecified (principal); D50.9 Iron deficiency anemia, unspecified
CPT/HCPCS: 80048; 82607; 82728; 82746; 83540; 85025

== ENCOUNTER 2024-08-22 11:30 | Outpatient (REF) | payer MEDICARE, OTHER, SELFPAY ==
--- OUTSIDE RECORDS SUMMARY | 2024-08-22 12:14 | XMS_ITS | Clinical Summary ---
Author Organization Unknown Care Team Providers Care Director Of Purchasing Name Role Phone АНДРЕЙ DANIELS, SHELIA Unavailable Unavailable KARMEN JAMESON OT Unavailable Unavailkeli DOMÍNGUEZ RN, SKYE Unavailable Unavailable GORAN NAVA LPN, SHAHEED Unavailable Unavail able JOSE THOMPSON, CLINICAL WOOD TYPE CUTTER, ANNA Un available Unavailable MAURICE MEEK, PÉREZ Unavailable Unavailable Payers Payer Name Policy Type Policy Number Effective Date Expira tion Date MEDICARE - [facility] [place] - [id number] Problems Condition Name Condition Details Condition Category [...] CHRONIC KIDNEY DISEASE Active 09-04 00:00: 00 TYPE 2 DIABETES MELLITUS WITH DIABETIC POLYNEUROPAT HY Active 09-04 00:00: 00 SENIOR LIVING (CURRENT) USE OF INSULIN Active 09-04 00:00: 00 MORBID (SEVERE) OBESITY DUE TO EXCESS CALORIES Active 09-04 00:00: 00 BODY MASS INDEX [BMI] 50.0-59.9, ADULT Active 09-04 00:00: 00 OTHER ARTIFICIAL OPENINGS OF URINARY TRACT STATUS Active 09-04 00:00: 00 ENCOUNTER FOR ATTENTION TO CYSTOSTOMY Active 09-04 00:00: 00 OTHER CHRONIC PAIN Active 09-04 00:00: 00 HYPERLIPIDEM IA, UNSPECIFIED Active 09-04 00:00: 00 IRON DEFICIENCY ANEMIA, UNSPECIFIED Active 09-04 00:00: 00 OTHER SPECIFIED CHRONIC OBSTRUCTIVE PULMONARY DISEASE Active 09-04 00:00: 00 DEPRESSION, UNSPECIFIED Active 09-04 00:00: 00 UNILATERAL PRIMARY OSTEOARTHRIT IS, RIGHT HIP Active 09-04 00:00: 00 DISPLACEMENT OF INDWELLING URETHRAL CATHETER, SUBS Active 09-04 00:00: 00 PAIN IN LEFT SHOULDER Active 09-04 00:00: 00 TRANSPORTATI ON INSECURITY Active 09-04 00:00: 00 PERSONAL HISTORY OF MALIGNANT NEOPLASM OF OTH PRT UTERUS Active 09-04 00:00: 00 BED CONFINEMENT STATUS Active 09-04 00:00: 00 PERSONAL HISTORY OF NICOTINE DEPENDENCE Active 09-04 00:00: 00 PRESENCE OF UNSPECIFIED ARTIFICIAL KNEE JOINT Active 09-04 00:00: 00 SENIOR LIVING (CURRENT) USE OF INHALED STEROIDS Active 09-04 00:00: 00 DEPENDENCE ON SUPPLEMENTAL OXYGEN Active 09-04 00:00: 00 Allergies, Adverse Reactions, [...] 04-15 00:00: 00 04-22 00:00 :00 No [id number] Per instruc tions Per instructio ns (route: oral) Med Classific ation: Cardiovas cular Therapy Agents lisinopril 40 mg tablet 09-17 00:00: 00 01-02 23:59 :00 No [id number] 1 tablet DAILY 1 tablet DAILY (route: oral) Med Classific ation: Cardiovas cular Therapy Agents amlodipine 5 mg tablet 04-22 00:00: 00 Yes [id number] 1 tablet DAILY 1 tablet DAILY (route: oral) Med Classific ation: Cardiovas cular Therapy Agents atenolol 25 mg tablet 04-22 00:00: 00 Yes [id number] .5 tablet 2 TIMES DAILY .5 tablet 2 TIMES DAILY (route: oral) Med Classific ation: Cardiovas cular Therapy Agents cetirizine 10 mg tablet 04-22 00:00: 00 Yes [id number] 1 tablet DAILY 1 tablet DAILY (route: oral) Med Classific ation: Respirato ry Therapy Agents diphenoxyla te-atropine 2.5 mg-0.025 mg tablet 04-22 00:00: 00 Yes [id number] 1 tablet EVERY 12 HOURS 1 tablet EVERY 12 HOURS (route: oral) Med Classific ation: Gastroint estinal Therapy Agents Eliquis 5 mg tablet 04-22 00:00: 00 11-30 23:59 :00 No [id number] 1 tablet 2 TIMES DAILY 1 tablet 2 TIMES DAILY (route: oral) Med Classific ation: Hematolog ical Agents ferrous sulfate 325 mg (65 mg iron) tablet 04-22 00:00: 00 Yes [id number] 1 tablet DAILY 1 tablet DAILY (route: oral) Med Classific ation: Electroly te Balance-N utritiona l Products fluticasone 100 mcg-salmete rol 50 mcg/dose blistr powdr for inhalation 04-22 00:00: 00 04-28 23:59 :00 No [id number] 2 inhalat ion 2 TIMES DAILY 2 inhalation 2 TIMES DAILY (route: inhalation ) Med Classific ation: Respirato ry Therapy Agents gabapentin 300 mg capsule 04-22 00:00: 00 Yes [id number] 1 capsule 2 TIMES DAILY 1 capsule 2 TIMES DAILY (route: oral) Med Classific ation: Central Nervous System Agents insulin lispro (U-100) 100 unit/mL subcutaneou s solution 04-29 00:00: 00 10-09 23:59 :00 No [id number] 1 unit 3 TIMES A WEEK 1 unit 3 TIMES A WEEK (route: subcutaneo us) Med Classific ation: Endocrine omeprazole 20 mg capsule,del ayed release 04-22 00:00: 00 05-17 23:59 :00 No [id number] 1 capsule DAILY 1 capsule DAILY (route: oral) Med Classific ation: Gastroint estinal Therapy Agents simvastatin 40 mg tablet 8-19 00:00: 00 Yes [id number] 1 tablet BEDTIME 1 tablet BEDTIME (route: oral) Med Classific ation: Cardiovas cular Therapy Agents Tresiba FlexTouch U-200 insulin 200 unit/mL (3 mL) subcutaneou s pen 8- 00:00: 00 04-28 23:59 :00 No [id number] 75 unit DAILY 75 unit DAILY (route: subcutaneo us) Med Classific ation: Endocrine cephalexin 500 mg capsule 04-26 00:00: 00 05-01 23:59 :00 No [id number] 1 capsule 2 TIMES DAILY 1 capsule 2 TIMES DAILY (route: oral) Med Classific ation: Anti-Infe ctive Agents omeprazole 20 mg capsule,del ayed release 9-12 00:00: 00 04-28 23:59 :00 No [id number] 20 mg 2 TIMES DAILY 20 mg 2 TIMES DAILY (route: oral) Med Classific ation: Gastroint estinal Therapy Agents cephalexin 500 mg capsule 2022-09 1-16 00:00: 00 07-27 23:59 :00 No [id number] 1 capsule 3 TIMES DAILY 1 capsule 3 TIMES DAILY (route: oral) Med Classific ation: Anti-Infe ctive Agents Mucinex DM 60 mg-1,200 mg tablet,exte nded release 12 hr 1-10 00:00: 00 04-28 23:59 :00 No [id number] 1 tablet EVERY 12 HOURS 1 tablet EVERY 12 HOURS (route: oral) Med Classific ation: Respirato ry Therapy Agents Lasix 20 mg tablet 2-05 00:00: 00 04-28 23:59 :00 No [id number] 1 tablet DAILY 1 tablet DAILY (route: oral) Med Classific ation: Cardiovas cular Therapy Agents Acidophilus capsule 2-05 00:00: 00 Yes [id number] 1 capsule DAILY 1 capsule DAILY (route: oral) Med Classific ation: Gastroint estinal Therapy Agents multivitami n with minerals tablet 2-05 00:00: 00 04-28 23:59 :00 No [id number] 1 tablet DAILY 1 tablet DAILY (route: oral) Med Classific ation: Electroly te Balance-N utrrolandoa l Products Jardiance 10 mg tablet 2-05 00:00: 00 11-08 23:59 :00 No [id number] 1 tablet EVERY AM 1 tablet EVERY AM (route: oral) Med Classific ation: Endocrine albuterol sulfate HFA 90 mcg/actuati on aerosol inhaler 2- 00:00: 00 04-28 23:59 :00 No [id number] for shortness of breath 2 puff NEEDED 2 puff NEEDED (route: inhalation ) Med Classific ation: Respirato ry Therapy Agents insulin lispro (U-100) 100 unit/mL subcutaneou s solution - 00:00: 00 04-28 00:00 :00 No [id number] Per instruc tions 3 TIMES DAILY Per instructio ns 3 TIMES DAILY (route: subcutaneo us) Med Classific ation: Endocrine cephalexin 500 mg capsule - 00:00: 00 10-20 23:59 :00 No [id number] 1 capsule 2 TIMES DAILY 1 capsule 2 TIMES DAILY (route: oral) Med Classific ation: Anti-Infe ctive Agents Lasix 20 mg tablet 5- 00:00: 00 01-06 23:59 :00 No [id number] 20 mg DAILY 20 mg DAILY (route: oral) Med Classific ation: Cardiovas cular Therapy Agents lisinopril 10 mg tablet 5-19 00:00: 00 Yes [id number] 10 mg DAILY 10 mg DAILY (route: oral) Med Classific ation: Cardiovas cular Therapy Agents furosemide 20 mg tablet -23 00:00: 00 03-28 23:59 :00 No [id number] 20 mg DAILY 20 mg DAILY (route: oral) Med Classific ation: Cardiovas cular Therapy Agents furosemide 40 mg tablet 8-25 00:00: 00 Yes [id number] 1 tablet DAILY 1 tablet DAILY (route: oral) Med Classific ation: Cardiovas cular Therapy Agents insulin lispro (U-100) 100 unit/mL subcutaneou s pen 04-28 00:00: 00 Yes [id number] Per instruc tions 3 TIMES DAILY Per instructio ns 3 TIMES DAILY (route: subcutaneo us) Med Classific ation: Endocrine Tresiba FlexTouch U-200 insulin 200 unit/mL (3 mL) subcutaneou s pen 04-28 00:00: 00 Yes [id number] 50 unit BEDTIME 50 unit BEDTIME (route: subcutaneo us) Med Classific ation: Endocrine 8 Hour Pain Reliever 650 mg tablet,exte nded release 04-28 00:00: 00 Yes [id number] 2 tablet EVERY 8 HOURS 2 tablet EVERY 8 HOURS (route: oral) Med Classific ation: Analgesic , Anti-infl ammatory or Antipyret ic albuterol sulfate HFA 90 mcg/actuati on aerosol inhaler 04-28 00:00: 00 Yes [id number] 2 puff EVERY 6 HOURS 2 puff EVERY 6 HOURS (route: inhalation ) Med Classific ation: Respirato ry Therapy Agents magnesium 400 mg (as magnesium oxide) capsule 04-28 00:00: 00 Yes [id number] 1 capsule DAILY 1 capsule DAILY (route: oral) Med Classific ation: Electroly te Balance-N utritiona l Products nystatin 100,000 unit/gram topical powder 04-28 00:00: 00 Yes [id number] Per instruc tions 2 TIMES DAILY Per instructio ns 2 TIMES DAILY (route: topical) Med Classific ation: Dermatolo gical ondansetron HCl 4 mg tablet 04-28 00:00: 00 Yes [id number] 1 tablet EVERY 8 HOURS 1 tablet EVERY 8 HOURS (route: oral) Med Classific ation: Gastroint estinal Therapy Agents Arnuity Ellipta 100 mcg/actuati on powder for inhalation 04-28 00:00: 00 Yes [id number] 1 inhalat ion NOON 1 inhalation NOON (route: inhalation ) Med Classific ation: Respirato ry Therapy Agents omeprazole 20 mg tablet,steven yed release 04-28 00:00: 00 Yes [id number] 1 tablet DAILY 1 tablet DAILY (route: oral) Med Classific ation: Gastroint estinal Therapy Agents oxygen gas for inhalation 04-28 00:00: 00 Yes [id number] 2 Liter O2 - CONTINUOUS 2 Liter O2 - CONTINUOUS (route: inhalation ) Alternate Route: O2 - NASAL CANNULA. Med Classific ation: Medical Supplies and Durable Medical Equipment (DME) benzonatate 100 mg capsule 04-28 00:00: 00 Yes [id number] 1 capsule 3 TIMES DAILY 1 capsule 3 TIMES DAILY (route: oral) Med Classific ation: Respirato ry Therapy Agents Immunizations Ordered Immunization Name Filled Immunization Name Date Status Comments Refusal Reason COVID-19, COVID-19 2023-09-13 00:00:00 INFLUENZA, TIV (INACTIVATED) 2023-08-02 00:00:00 Vital Signs Vital Name Observation Time Observation Value Commen ts Temperature 2024-08-19 19:54:00.000 97 [degF] Temperature 2024-08-07 14:22:00.000 97.3 [degF] Temperature 2024-07-30 11:51:00.000 97.3 [degF] Temperature 2024-07-26 14:40:00.000 98.4 [degF] Temperature 2024-07-23 11:34:00.000 97.3 [degF] Temperature 2024-07-17 17:04:00.000 97 [degF] Temperature 2024-07-15 16:00:00.000 97 [degF] Temperature 2024-07-12 07:20:00.000 98.5 [degF] Temperature 2024-07-10 11:13:00.000 97.1 [degF] BMI (%) 2024-08-19 19:54:00.000 0 kg/m2 Calf Circumference (cms) 2024-08-07 14:22:00.000 50 Calf Circumference (cms) 2024-07-30 11:51:00.000 52.5 Calf Circumference (cms) 2024-07-23 11:37:00.000 52.5 Height 2024-08-19 19:54:00.000 62 [in_us] Pulse 2024-08-19 19:54:00.000 70 /min Pulse 2024-08-07 14:22:00.000 56 /min Pulse 2024-07-30 11:51:00.000 56 /min Pulse 2024-07-26 14:40:00.000 72 /min Pulse 2024-07-23 11:34:00.000 70 /min Pulse 2024-07-17 17:04:00.000 68 /min Pulse 2024-07-15 16:00:00.000 60 /min Pulse 2024-07-12 07:20:00.000 98 /min Pulse 2024-07-10 11:13:00.000 58 /min O2 Saturation (%) 2024-08-19 19:54:00.000 97 % O2 Saturation (%) 2024-08-07 14:22:00.000 99 % O2 Saturation (%) 2024-07-30 11:51:00.000 99 % O2 Saturation (%) 2024-07-26 14:40:00.000 98 % O2 Saturation (%) 2024-07-23 11:34:00.000 96 % O2 Saturation (%) 2024-07-17 17:04:00.000 97 % O2 Saturation (%) 2024-07-15 16:00:00.000 96 % O2 Saturation (%) 2024-07-12 07:20:00.000 95 % O2 Saturation (%) 2024-07-10 11:13:00.000 97 % Pain 2024-08-19 19:54:00.000 0 Pain 2024-08-07 14:22:00.000 0 Pain 2024-07-30 11:51:00.000 0 Pain 2024-07-26 14:40:00.000 4 Pain 2024-07-23 11:34:00.000 3 Pain 2024-07-17 17:04:00.000 0 Pain 2024-07-15 16:00:00.000 0 Pain 2024-07-12 07:20:00.000 4 Pain 2024-07-10 11:13:00.000 0 Respirations 2024-08-19 19:54:00.000 18 /min Respirations 2024-07-26 14:40:00.000 16 /min Respirations 2024-07-17 17:04:00.000 18 /min Respirations 2024-07-15 16:00:00.000 18 /min Respirations 2024-07-12 07:20:00.000 16 /min Respirations 2024-07-10 11:13:00.000 18 /min Weight (kgs) 2024-08-19 19:54:00.000 1 Systolic Blood Pressure 2024-08-19 19:54:00.000 126 mm [Hg] Systolic Blood Pressure 2024-08-07 14:22:00.000 120 mm [...] 11:13:00.000 118 mm [Hg] Diastolic Blood Pressure 2024-08-19 19:54:00.000 64 mm [Hg] Diastolic Blood Pressure 2024-08-07 14:22:00.000 [...] BLOCKAGE/LEAKAGE, HEAVY SEDIMENT. 1 - 3 PRN [facility] VISITS FOR CATHETER CHANGE(S) AND/OR TROUBLESHOOTING. [code = SKILLED NURSE TO INSTRUCT PATIENT/CAREGIVER ON CARE AND MANAGEMENT OF SUPRAPUBIC CATHETER. SKILLED NURSE FOR SUPRAPUBIC CATHETER INSERTION/MAINTENANCE UTILIZING 16 FR 10 CC CATHETER, CHANGE Q4 WEEKS AND PRN FOR LEAKING OR MALFUNCTIONING. IRRIGATE SUPRAPUBIC CATHETER WITH 30-60CC NORMAL SALINE PRN BLOCKAGE/LEAKAGE, HEAVY SEDIMENT. 1 - 3 PRN [facility] VISITS FOR CATHETER CHANGE(S) AND/OR TROUBLESHOOTING.] Future [...] GET BACK TO WHERE I WAS Goal 2024-08-19 Patient Goal - GET BACK TO WHERE I WAS Goal Patient Goal - GET BACK TO WHERE I WAS Goal 2023-11-09 Patient Goal - GET BACK TO WHERE I WAS Goal 2024-05-08 Patient Goal - GET BACK TO WHERE I WAS Goal Provider Goal - A PLAN OF CARE WILL BE ESTABLISHED THAT MEETS PATIENT'S [facility] NEEDS AND INCLUDES PATIENT GOAL FOR HOME [...] TO MANAGE BY END OF CERTIFICATION PERIOD. Progress Notes Progress Notes <paragraph>[Visit Date: 2023 by SKYE BOYINGTON RN]:</paragraph><paragraph>CLINICAL SUMMARY ROCAEL THE PATIENT IS RECEIVING HOMECARE DUE TO: HYP HRT [facility] DIS W HRT FAIL AND STG 1-4/UNSP [facility]R [facility] RECENT HOSPITALIZATION/INPATIENT ADMISSION RELATED TO: SPC UNABLE TO REINSERT. PATIENT LIVING SITUATION/CAREGIVER STATUS: W BROTHER SINGLE FAMILY HOME WITH AUTOMATION CONTROL TECHNICIAN ASSISTANCE RECENT FALLS: N PMH: SPC, CHRONIC UTI, DIASTOLIC CHF, CKD, TYPE 2 DIABETES, ANEMIA, SEVERE OBESITY, ASTHMA, GERD, RIGHT HIP OA, HYPERLIPIDEMIA, HYP HRT CHR [facility] DIS W HRT FAIL AND STG 1-4/UNSP [facility]R [facility] FOC: HYP HRT [facility]R [facility] DIS W HRT FAIL AND STG 1-4/UNSP [facility]R [facility] SUMMARIZE SKILLED NEED: DISEASE MANAGEMENT AND EDUCATION, PROPER USE OF DMES, MED/PAIN EDUC/TEACHING ADDITIONAL DISCIPLINES NEEDED: SN DANIELS COMMUNICATION: MD UPDATED ON PLAN OF CARE UPCOMING APPOINTMENTS: PCP ANTICIPATED DISCHARGE PLAN: DC UNDER THE CARE OF MD WHEN ALL GOALS ARE MET PAYOR SOURCE: MEDICARE PT ROCAEL TODAY AFTER HAVING TO RETURN TO HOSPITAL DUE TO INABILITY TO REINSERT SPC. PT HAD NEW SPC PLACED. WAS TOLD PREVIOUS INSERTION SITE WAS SLANTED CAUSING DIFFICULTY WITH CATH CHANGES. SHE HAD SOME POST OP BLEEDJ G REQUIRED PRBC TRANSFUSION. SPC DRAINING CLEAR YELLOW URINE NEPHROSTOMY TUBE PATENT DRAINING CLEAR URINE WELL. PT IN [place] SPIRITS HAPPY TO BE HOME. LABS DRAWN X1 ATTEMPT R AC. BROUGHT TO [facility] [place] FOR PROCESSING. LAB ORDERED BY PCP TODAY. PT AWAKE AND ALERT VSS AFEBRILE LUNGS DIM THROUGHOUT SPEAKING IN FULL FULL NAD NOTED ABD SNT POS BS DENIES PROBLEMS WITH BOWEL. PT BASELINE BEDBOUBD. AUTOMATION CONTROL TECHNICIAN PERFOMS ADL DAILY. PER UROLOGY SPC TO BE FLUSHED QSNV. SUPPLIES WILL BE ORDERED FOR CATH FLUSHES. POC TO RESUME SNV 2X WEEK FOR SPC CARE FLUSHES. [facility] CARE ,ED AND DISEASE TEACHING AND MANAGEMENT. PLAN FOR NEXT SPC CHANGE BY UROLOGY IN 8 WEEKS AND ALSO WILL HABE NEPHROSTOMY TUBE CHANGE AT THAT TIME. PCP CALLED AWARE OF ROCAEL AND IN AGREEMENT WITH POC.</paragraph> Encounters Start Date/Time End Date/Time Encounter Type Admission Type Attending [facility] Care Facility Care Department Encounter ID Discharge Date Discharge Status Discharge Condition Discharge Reason Percent Goals Met 2023-09-13 00:00:00 2024-09-06 00:00:00 Outpatient RECERTSKYE AMADO [id number] 32.61
--- OUTSIDE RECORDS SUMMARY | 2024-08-22 12:17 | XMS_ITS | Clinical Summary ---
Author Organization Unknown Care Team Providers Care Dry Transfer Man Name Role Phone АНДРЕЙ DANIELS, SHELIA Unavailable Unavailable KARMEN JAMESON OT Unavailable Unavailkeli DOMÍNGUEZ RN, SKYE Unavailable Unavailable GORAN NAVA LPN, SHAHEED Unavailable Unavail able JOSE THOMPSON, CLINICAL FUNERAL PRE NEED CONSULTANT, ANNA Un available Unavailable MAURICE MEEK, PÉREZ Unavailable Unavailable Payers Payer Name Policy Type Policy Number Effective Date Expira tion Date [facility] [place] [id number] Problems Condition Name Condition Details Condition Category [...] DIABETIC POLYNEUROPAT HY Active 09-04 00:00: 00 LONG-TERM (CURRENT) USE OF INSULIN Active 09-04 00:00: [...] ARTIFICIAL KNEE JOINT Active 09-04 00:00: 00 LONG-TERM (CURRENT) USE OF INHALED STEROIDS Active 09-04 [...] 04-15 00:00: 00 04-22 00:00 :00 No [id number] Per instruc tions Per instructio ns (route: oral) Med Classific ation: Cardiovas cular Therapy Agents lisinopril 40 mg tablet 09-17 00:00: 00 01-02 23:59 :00 No [id number] 1 tablet DAILY 1 tablet DAILY (route: oral) Med Classific ation: Cardiovas cular Therapy Agents amlodipine 5 mg tablet 04-22 00:00: 00 Yes [id number] 1 tablet DAILY 1 tablet DAILY (route: oral) Med Classific ation: Cardiovas cular Therapy Agents atenolol 25 mg tablet 04-22 00:00: 00 Yes [id number] .[id number] tablet 2 TIMES DAILY .5 tablet 2 TIMES DAILY (route: oral) Med Classific ation: Cardiovas cular Therapy Agents cetirizine 10 mg tablet 04-22 00:00: 00 Yes [id number] 1 tablet DAILY 1 tablet DAILY (route: oral) Med Classific ation: Respirato ry Therapy Agents diphenoxyla te-atropine 2.5 mg-0.025 mg tablet 04-22 00:00: 00 Yes [id number] 1 tablet EVERY 12 HOURS 1 tablet EVERY 12 HOURS (route: oral) Med Classific ation: Gastroint estinal Therapy Agents Eliquis 5 mg tablet 04-22 00:00: 00 11-30 23:59 :00 No [id number] 1 tablet 2 TIMES DAILY 1 tablet 2 TIMES DAILY (route: oral) Med Classific ation: Hematolog ical Agents ferrous sulfate 325 mg (65 mg iron) tablet 04-22 00:00: 00 Yes [id number] 1 tablet DAILY 1 tablet DAILY (route: oral) Med Classific ation: Electroly te Balance-N utritiona l Products fluticasone 100 mcg-salmete rol 50 mcg/dose blistr powdr for inhalation 04-22 00:00: 00 04-28 23:59 :00 No [id number] 2 inhalat ion 2 TIMES DAILY 2 inhalation 2 TIMES DAILY (route: inhalation ) Med Classific ation: Respirato ry Therapy Agents gabapentin 300 mg capsule 04-22 00:00: 00 Yes [id number] 1 capsule 2 TIMES DAILY 1 capsule 2 TIMES DAILY (route: oral) Med Classific ation: Central Nervous System Agents insulin lispro (U-100) 100 unit/mL subcutaneou s solution 04-29 00:00: 00 10-09 23:59 :00 No [id number] 1 unit 3 TIMES A WEEK 1 unit 3 TIMES A WEEK (route: subcutaneo us) Med Classific ation: Endocrine omeprazole 20 mg capsule,del ayed release 04-22 00:00: 00 05-17 23:59 :00 No [id number] 1 capsule DAILY 1 capsule DAILY (route: oral) Med Classific ation: Gastroint estinal Therapy Agents simvastatin 40 mg tablet 8-19 00:00: 00 Yes [id number] 1 tablet BEDTIME 1 tablet BEDTIME (route: oral) Med Classific ation: Cardiovas cular Therapy Agents Tresiba FlexTouch U-200 insulin 200 unit/mL (3 mL) subcutaneou s pen 8- 00:00: 00 04-28 23:59 :00 No [id number] 75 unit DAILY 75 unit DAILY (route: subcutaneo us) Med Classific ation: Endocrine cephalexin 500 mg capsule 04-26 00:00: 00 05-01 23:59 :00 No [id number] 1 capsule 2 TIMES DAILY 1 capsule 2 TIMES DAILY (route: oral) Med Classific ation: Anti-Infe ctive Agents omeprazole 20 mg capsule,del ayed release 9-12 00:00: 00 04-28 23:59 :00 No [id number] 20 mg 2 TIMES DAILY 20 mg 2 TIMES DAILY (route: oral) Med Classific ation: Gastroint estinal Therapy Agents cephalexin 500 mg capsule 2022-09 1-16 00:00: 00 07-27 23:59 :00 No [id number] 1 capsule 3 TIMES DAILY 1 capsule 3 TIMES DAILY (route: oral) Med Classific ation: Anti-Infe ctive Agents Mucinex DM 60 mg-1,200 mg tablet,exte nded release 12 hr 1-10 00:00: 00 04-28 23:59 :00 No [id number] 1 tablet EVERY 12 HOURS 1 tablet EVERY 12 HOURS (route: oral) Med Classific ation: Respirato ry Therapy Agents Lasix 20 mg tablet 2-05 00:00: 00 04-28 23:59 :00 No [id number] 1 tablet DAILY 1 tablet DAILY (route: oral) Med Classific ation: Cardiovas cular Therapy Agents Acidophilus capsule 2-05 00:00: 00 Yes [id number] 1 capsule DAILY 1 capsule DAILY (route: oral) Med Classific ation: Gastroint estinal Therapy Agents multivitami n with minerals tablet 2-05 00:00: 00 04-28 23:59 :00 No [id number] 1 tablet DAILY 1 tablet DAILY (route: oral) Med Classific ation: Electroly te Balance-N utrrolandoa l Products Jardiance 10 mg tablet 2-05 00:00: 00 11-08 23:59 :00 No [id number] 1 tablet EVERY AM 1 tablet EVERY AM (route: oral) Med Classific ation: Endocrine albuterol sulfate HFA 90 mcg/actuati on aerosol inhaler 2- 00:00: 00 04-28 23:59 :00 No [id number] for shortness of breath 2 puff NEEDED 2 puff NEEDED (route: inhalation ) Med Classific ation: Respirato ry Therapy Agents insulin lispro (U-100) 100 unit/mL subcutaneou s solution - 00:00: 00 04-28 00:00 :00 No [id number] Per instruc tions 3 TIMES DAILY Per instructio ns 3 TIMES DAILY (route: subcutaneo us) Med Classific ation: Endocrine cephalexin 500 mg capsule - 00:00: 00 10-20 23:59 :00 No [id number] 1 capsule 2 TIMES DAILY 1 capsule 2 TIMES DAILY (route: oral) Med Classific ation: Anti-Infe ctive Agents Lasix 20 mg tablet 5- 00:00: 00 01-06 23:59 :00 No [id number] 20 mg DAILY 20 mg DAILY (route: oral) Med Classific ation: Cardiovas cular Therapy Agents lisinopril 10 mg tablet 5-19 00:00: 00 Yes [id number] 10 mg DAILY 10 mg DAILY (route: oral) Med Classific ation: Cardiovas cular Therapy Agents furosemide 20 mg tablet -23 00:00: 00 03-28 23:59 :00 No [id number] 20 mg DAILY 20 mg DAILY (route: oral) Med Classific ation: Cardiovas cular Therapy Agents furosemide 40 mg tablet 8-25 00:00: 00 Yes [id number] 1 tablet DAILY 1 tablet DAILY (route: oral) Med Classific ation: Cardiovas cular Therapy Agents insulin lispro (U-100) 100 unit/mL subcutaneou s pen 04-28 00:00: 00 Yes [id number] Per instruc tions 3 TIMES DAILY Per instructio ns 3 TIMES DAILY (route: subcutaneo us) Med Classific ation: Endocrine Tresiba FlexTouch U-200 insulin 200 unit/mL (3 mL) subcutaneou s pen 04-28 00:00: 00 Yes [id number] 50 unit BEDTIME 50 unit BEDTIME (route: subcutaneo us) Med Classific ation: Endocrine 8 Hour Pain Reliever 650 mg tablet,exte nded release 04-28 00:00: 00 Yes [id number] 2 tablet EVERY 8 HOURS 2 tablet EVERY 8 HOURS (route: oral) Med Classific ation: Analgesic , Anti-infl ammatory or Antipyret ic albuterol sulfate HFA 90 mcg/actuati on aerosol inhaler 04-28 00:00: 00 Yes [id number] 2 puff EVERY 6 HOURS 2 puff EVERY 6 HOURS (route: inhalation ) Med Classific ation: Respirato ry Therapy Agents magnesium 400 mg (as magnesium oxide) capsule 04-28 00:00: 00 Yes [id number] 1 capsule DAILY 1 capsule DAILY (route: oral) Med Classific ation: Electroly te Balance-N utritiona l Products nystatin 100,000 unit/gram topical powder 04-28 00:00: 00 Yes [id number] Per instruc tions 2 TIMES DAILY Per instructio ns 2 TIMES DAILY (route: topical) Med Classific ation: Dermatolo gical ondansetron HCl 4 mg tablet 04-28 00:00: 00 Yes [id number] 1 tablet EVERY 8 HOURS 1 tablet EVERY 8 HOURS (route: oral) Med Classific ation: Gastroint estinal Therapy Agents Arnuity Ellipta 100 mcg/actuati on powder for inhalation 04-28 00:00: 00 Yes [id number] 1 inhalat ion NOON 1 inhalation NOON (route: inhalation ) Med Classific ation: Respirato ry Therapy Agents omeprazole 20 mg tablet,steven yed release 04-28 00:00: 00 Yes [id number] 1 tablet DAILY 1 tablet DAILY (route: oral) Med Classific ation: Gastroint estinal Therapy Agents oxygen gas for inhalation 04-28 00:00: 00 Yes [id number] 2 Liter O2 - CONTINUOUS 2 Liter O2 - CONTINUOUS (route: inhalation ) Alternate Route: O2 - NASAL CANNULA. Med Classific ation: Medical Supplies and Durable Medical Equipment (DME) benzonatate 100 mg capsule 04-28 00:00: 00 Yes [id number] 1 capsule 3 TIMES DAILY 1 capsule [...] BLOCKAGE/LEAKAGE, HEAVY SEDIMENT. 1 - 3 PRN [facility] VISITS FOR CATHETER CHANGE(S) AND/OR TROUBLESHOOTING. [code = SKILLED NURSE TO INSTRUCT PATIENT/CAREGIVER ON CARE AND MANAGEMENT OF SUPRAPUBIC CATHETER. SKILLED NURSE FOR SUPRAPUBIC CATHETER INSERTION/MAINTENANCE UTILIZING 16 FR 10 CC CATHETER, CHANGE Q4 WEEKS AND PRN FOR LEAKING OR MALFUNCTIONING. IRRIGATE SUPRAPUBIC CATHETER WITH 30-60CC NORMAL SALINE PRN BLOCKAGE/LEAKAGE, HEAVY SEDIMENT. 1 - 3 PRN [facility]DC VISITS FOR CATHETER CHANGE(S) AND/OR TROUBLESHOOTING.] Future [...] CARE WILL BE ESTABLISHED THAT MEETS PATIENT'S FDC NEEDS AND INCLUDES PATIENT GOAL FOR HOME [...] STATUS: W BROTHER SINGLE FAMILY HOME WITH METAL WINDOW FRAME MAKER ASSISTANCE RECENT FALLS: N PMH: SPC, CHRONIC [...] DRAWN X1 ATTEMPT R AC. BROUGHT [place] [facility] [place]. LAB ORDERED BY PCP TODAY. PT AWAKE AND ALERT VSS AFEBRILE LUNGS DIM THROUGHOUT SPEAKING IN FULL FULL NAD NOTED ABD SNT POS BS DENIES PROBLEMS WITH BOWEL. PT BASELINE BEDBOUBD. METAL WINDOW FRAME MAKER PERFOMS ADL DAILY. PER UROLOGY SPC TO [...] End Date/Time Encounter Type Admission Type Attending [facility] Care Facility Care Department Encounter ID Discharge Date Discharge Status Discharge Condition Discharge Reason Percent Goals Met 2023-09-13 00:00:00 2024-09-06 00:00:00 Outpatient RECERTSKYE AMADO [id number] 32.61
--- OUTSIDE RECORDS SUMMARY | 2024-08-22 12:17 | XMS_ITS | Clinical Summary ---
Author Organization Unknown Care Team Providers Care Transmission And Protection Engineer Name Role Phone АНДРЕЙ DANIELS, SHELIA Unavailable Unavailable KARMEN JAMESON OT Unavailable Unavailkeli DOMÍNGUEZ RN, SKYE Unavailable Unavailable GORAN NAVA LPN, SHAHEED Unavailable Unavail able JOSE THOMPSON, CLINICAL EDGE PLUGGER, ANNA Un available Unavailable MAURICE MEEK, PÉREZ Unavailable Unavailable Payers Payer Name Policy Type Policy Number Effective Date Expira tion Date MEDICARE - [facility] [place] - [place] [id number] Problems Condition Name Condition Details Condition Category [...] DIABETIC POLYNEUROPAT HY Active 09-04 00:00: 00 RETIREMENT (CURRENT) USE OF INSULIN Active 09-04 00:00: [...] ARTIFICIAL KNEE JOINT Active 09-04 00:00: 00 RETIREMENT (CURRENT) USE OF INHALED STEROIDS Active 09-04 [...] 04-15 00:00: 00 04-22 00:00 :00 No [id number] Per instruc tions Per instructio ns (route: oral) Med Classific ation: Cardiovas cular Therapy Agents lisinopril 40 mg tablet 09-17 00:00: 00 01-02 23:59 :00 No [id number] 1 tablet DAILY 1 tablet DAILY (route: oral) Med Classific ation: Cardiovas cular Therapy Agents amlodipine 5 mg tablet 04-22 00:00: 00 Yes [id number] 1 tablet DAILY 1 tablet DAILY (route: oral) Med Classific ation: Cardiovas cular Therapy Agents atenolol 25 mg tablet 04-22 00:00: 00 Yes [id number] .5 tablet 2 TIMES DAILY .5 tablet 2 TIMES DAILY (route: oral) Med Classific ation: Cardiovas cular Therapy Agents cetirizine 10 mg tablet 04-22 00:00: 00 Yes [id number] 1 tablet DAILY 1 tablet DAILY (route: oral) Med Classific ation: Respirato ry Therapy Agents diphenoxyla te-atropine 2.5 mg-0.025 mg tablet 04-22 00:00: 00 Yes [id number] 1 tablet EVERY 12 HOURS 1 tablet EVERY 12 HOURS (route: oral) Med Classific ation: Gastroint estinal Therapy Agents Eliquis 5 mg tablet 04-22 00:00: 00 11-30 23:59 :00 No [id number] 1 tablet 2 TIMES DAILY 1 tablet 2 TIMES DAILY (route: oral) Med Classific ation: Hematolog ical Agents ferrous sulfate 325 mg (65 mg iron) tablet 04-22 00:00: 00 Yes [id number] 1 tablet DAILY 1 tablet DAILY (route: oral) Med Classific ation: Electroly te Balance-N utritiona l Products fluticasone 100 mcg-salmete rol 50 mcg/dose blistr powdr for inhalation 04-22 00:00: 00 04-28 23:59 :00 No [id number] 2 inhalat ion 2 TIMES DAILY 2 inhalation 2 TIMES DAILY (route: inhalation ) Med Classific ation: Respirato ry Therapy Agents gabapentin 300 mg capsule 04-22 00:00: 00 Yes [id number] 1 capsule 2 TIMES DAILY 1 capsule 2 TIMES DAILY (route: oral) Med Classific ation: Central Nervous System Agents insulin lispro (U-100) 100 unit/mL subcutaneou s solution 04-29 00:00: 00 10-09 23:59 :00 No [id number] 1 unit 3 TIMES A WEEK 1 unit 3 TIMES A WEEK (route: subcutaneo us) Med Classific ation: Endocrine omeprazole 20 mg capsule,del ayed release 04-22 00:00: 00 05-17 23:59 :00 No [id number] 1 capsule DAILY 1 capsule DAILY (route: oral) Med Classific ation: Gastroint estinal Therapy Agents simvastatin 40 mg tablet 8-19 00:00: 00 Yes [id number] 1 tablet BEDTIME 1 tablet BEDTIME (route: oral) Med Classific ation: Cardiovas cular Therapy Agents Tresiba FlexTouch U-200 insulin 200 unit/mL (3 mL) subcutaneou s pen 8- 00:00: 00 04-28 23:59 :00 No [id number] 75 unit DAILY 75 unit DAILY (route: subcutaneo us) Med Classific ation: Endocrine cephalexin 500 mg capsule 04-26 00:00: 00 05-01 23:59 :00 No [id number] 1 capsule 2 TIMES DAILY 1 capsule 2 TIMES DAILY (route: oral) Med Classific ation: Anti-Infe ctive Agents omeprazole 20 mg capsule,del ayed release 9-12 00:00: 00 04-28 23:59 :00 No [id number] 20 mg 2 TIMES DAILY 20 mg 2 TIMES DAILY (route: oral) Med Classific ation: Gastroint estinal Therapy Agents cephalexin 500 mg capsule 2022-09 1-16 00:00: 00 07-27 23:59 :00 No [id number] 1 capsule 3 TIMES DAILY 1 capsule 3 TIMES DAILY (route: oral) Med Classific ation: Anti-Infe ctive Agents Mucinex DM 60 mg-1,200 mg tablet,exte nded release 12 hr 1-10 00:00: 00 04-28 23:59 :00 No [id number] 1 tablet EVERY 12 HOURS 1 tablet EVERY 12 HOURS (route: oral) Med Classific ation: Respirato ry Therapy Agents Lasix 20 mg tablet 2-05 00:00: 00 04-28 23:59 :00 No [id number] 1 tablet DAILY 1 tablet DAILY (route: oral) Med Classific ation: Cardiovas cular Therapy Agents Acidophilus capsule 2-05 00:00: 00 Yes [id number] 1 capsule DAILY 1 capsule DAILY (route: oral) Med Classific ation: Gastroint estinal Therapy Agents multivitami n with minerals tablet 2-05 00:00: 00 04-28 23:59 :00 No [id number] 1 tablet DAILY 1 tablet DAILY (route: oral) Med Classific ation: Electroly te Balance-N utrrolandoa l Products Jardiance 10 mg tablet 2-05 00:00: 00 11-08 23:59 :00 No [id number] 1 tablet EVERY AM 1 tablet EVERY AM (route: oral) Med Classific ation: Endocrine albuterol sulfate HFA 90 mcg/actuati on aerosol inhaler 2- 00:00: 00 04-28 23:59 :00 No [id number] for shortness of breath 2 puff NEEDED 2 puff NEEDED (route: inhalation ) Med Classific ation: Respirato ry Therapy Agents insulin lispro (U-100) 100 unit/mL subcutaneou s solution - 00:00: 00 04-28 00:00 :00 No [id number] Per instruc tions 3 TIMES DAILY Per instructio ns 3 TIMES DAILY (route: subcutaneo us) Med Classific ation: Endocrine cephalexin 500 mg capsule - 00:00: 00 10-20 23:59 :00 No [id number] 1 capsule 2 TIMES DAILY 1 capsule 2 TIMES DAILY (route: oral) Med Classific ation: Anti-Infe ctive Agents Lasix 20 mg tablet 5- 00:00: 00 01-06 23:59 :00 No [id number] 20 mg DAILY 20 mg DAILY (route: oral) Med Classific ation: Cardiovas cular Therapy Agents lisinopril 10 mg tablet 5-19 00:00: 00 Yes [id number] 10 mg DAILY 10 mg DAILY (route: oral) Med Classific ation: Cardiovas cular Therapy Agents furosemide 20 mg tablet -23 00:00: 00 03-28 23:59 :00 No [id number] 20 mg DAILY 20 mg DAILY (route: oral) Med Classific ation: Cardiovas cular Therapy Agents furosemide 40 mg tablet 8-25 00:00: 00 Yes [id number] 1 tablet DAILY 1 tablet DAILY (route: oral) Med Classific ation: Cardiovas cular Therapy Agents insulin lispro (U-100) 100 unit/mL subcutaneou s pen 04-28 00:00: 00 Yes [id number] Per instruc tions 3 TIMES DAILY Per instructio ns 3 TIMES DAILY (route: subcutaneo us) Med Classific ation: Endocrine Tresiba FlexTouch U-200 insulin 200 unit/mL (3 mL) subcutaneou s pen 04-28 00:00: 00 Yes [id number] 50 unit BEDTIME 50 unit BEDTIME (route: subcutaneo us) Med Classific ation: Endocrine 8 Hour Pain Reliever 650 mg tablet,exte nded release 04-28 00:00: 00 Yes [id number] 2 tablet EVERY 8 HOURS 2 tablet EVERY 8 HOURS (route: oral) Med Classific ation: Analgesic , Anti-infl ammatory or Antipyret ic albuterol sulfate HFA 90 mcg/actuati on aerosol inhaler 04-28 00:00: 00 Yes [id number] 2 puff EVERY 6 HOURS 2 puff EVERY 6 HOURS (route: inhalation ) Med Classific ation: Respirato ry Therapy Agents magnesium 400 mg (as magnesium oxide) capsule 04-28 00:00: 00 Yes [id number] 1 capsule DAILY 1 capsule DAILY (route: oral) Med Classific ation: Electroly te Balance-N utritiona l Products nystatin 100,000 unit/gram topical powder 04-28 00:00: 00 Yes [id number] Per instruc tions 2 TIMES DAILY Per instructio ns 2 TIMES DAILY (route: topical) Med Classific ation: Dermatolo gical ondansetron HCl 4 mg tablet 04-28 00:00: 00 Yes [id number] 1 tablet EVERY 8 HOURS 1 tablet EVERY 8 HOURS (route: oral) Med Classific ation: Gastroint estinal Therapy Agents Arnuity Ellipta 100 mcg/actuati on powder for inhalation 04-28 00:00: 00 Yes [id number] 1 inhalat ion NOON 1 inhalation NOON (route: inhalation ) Med Classific ation: Respirato ry Therapy Agents omeprazole 20 mg tablet,steven yed release 04-28 00:00: 00 Yes [id number] 1 tablet DAILY 1 tablet DAILY (route: oral) Med Classific ation: Gastroint estinal Therapy Agents oxygen gas for inhalation 04-28 00:00: 00 Yes [id number] 2 Liter O2 - CONTINUOUS 2 Liter O2 - CONTINUOUS (route: inhalation ) Alternate Route: O2 - NASAL CANNULA. Med Classific ation: Medical Supplies and Durable Medical Equipment (DME) benzonatate 100 mg capsule 04-28 00:00: 00 Yes [id number] 1 capsule 3 TIMES DAILY 1 capsule [...] BLOCKAGE/LEAKAGE, HEAVY SEDIMENT. 1 - 3 PRN [facility] VISITS FOR CATHETER CHANGE(S) AND/OR TROUBLESHOOTING. [code = SKILLED NURSE TO INSTRUCT PATIENT/CAREGIVER ON CARE AND MANAGEMENT OF SUPRAPUBIC CATHETER. SKILLED NURSE FOR SUPRAPUBIC CATHETER INSERTION/MAINTENANCE UTILIZING 16 FR 10 CC CATHETER, CHANGE Q4 WEEKS AND PRN FOR LEAKING OR MALFUNCTIONING. IRRIGATE SUPRAPUBIC CATHETER WITH 30-60CC NORMAL SALINE PRN BLOCKAGE/LEAKAGE, HEAVY SEDIMENT. 1 - 3 PRN [facility] VISITS FOR CATHETER CHANGE(S) AND/OR TROUBLESHOOTING.] Future [...] CARE WILL BE ESTABLISHED THAT MEETS PATIENT'S [facility] NEEDS AND INCLUDES PATIENT GOAL FOR HOME [...] STATUS: W BROTHER SINGLE FAMILY HOME WITH QUALITY IMPROVEMENT COORDINATOR ASSISTANCE RECENT FALLS: N PMH: SPC, CHRONIC [...] DRAWN X1 ATTEMPT R AC. BROUGHT TO [facility] [place] FOR PROCESSING. LAB ORDERED BY PCP TODAY. PT AWAKE AND ALERT VSS AFEBRILE LUNGS DIM THROUGHOUT SPEAKING IN FULL FULL NAD NOTED ABD SNT POS BS DENIES PROBLEMS WITH BOWEL. PT BASELINE BEDBOUBD. QUALITY IMPROVEMENT COORDINATOR PERFOMS ADL DAILY. PER UROLOGY SPC TO [...] Encounter Type Admission Type Attending [facility] Care Facility Care Department Encounter ID Discharge Date Discharge Status Discharge Condition Discharge Reason Percent Goals Met 2023-09-13 00:00:00 2024-09-06 00:00:00 Outpatient RECERTSKYE AMADO [id number] 32.61
[2024-08-22 13:22] LABS: MANUAL DIFF FLAG NO
[2024-08-22 13:27] LABS: Basophils Percent Auto 0.6 % (0-2); Eosinophils Absolute Auto 0.3 X10*3/uL (0.0-0.4); Eosinophils Percent Auto 3.6 % (0-4); Hematocrit 27.8 % (37.0-47.0); Hemoglobin 8.1 g/dl (12.0-16.0); Imm Gran Abs Auto 0.03 X10*3/uL (0.00-0.03); Imm Gran Pct Auto 0.4 % (0.0-0.4); Lymphocytes Absolute Auto 0.8 X10*3/uL (1.2-4.9); Lymphocytes Percent Auto 11.5 % (20-40); Mean Corpuscular HGB Conc 29.1 g/dl (31.0-35.0); Mean Corpuscular Hemoglobin 24.8 pg (27.0-33.0); Mean Platelet Volume 10.2 fL (9.4-12.3); Monocytes Absolute Auto 0.3 X10*3/uL (0.1-1.2); Monocytes Percent Auto 4.3 % (2-11); Neutrophils Absolute Auto 5.5 x10*3/uL (2.0-8.3); Neutrophils Percent Auto 79.6 % (45-73); Platelet Count 302 X10*3/uL (160-400); Red Blood Count 3.27 X10*6/uL (4.20-5.50); Red Cell Distribution Width 14.5 % (11.0-16.0)
== END 2024-08-22 12:11 | disposition home or self-care (01) ==
LOC: HO.HVNA 11:30
PROVIDERS: Visit Provider Family Medicine
DX: R53.1 Weakness (principal); D64.9 Anemia, unspecified
CPT/HCPCS: 36415; 85025

== ENCOUNTER 2024-09-09 12:00 | Outpatient (REF) | payer MEDICARE, OTHER, SELFPAY ==
--- OUTSIDE RECORDS SUMMARY | 2024-09-09 14:37 | XMS_ITS | Clinical Summary ---
Author Organization Unknown Care Team Providers Care Assistant Production Manager Name Role Phone АНДРЕЙ DANIELS, SHELIA Unavailable Unavailable KARMEN JAMESON OT Unavailable Unavailkeli DOMÍNGUEZ RN, SKYE Unavailable Unavailable GORAN NAVA LPN, SHAHEED Unavailable Unavail kostas GARCIA RN, CLINICAL MEDICAL FILE CLERK, ANNA Un available Unavailable MAURICE MEEK, PÉREZ Unavailable Unavailable Payers Payer Name Policy Type Policy Number Effective Date Expira tion Date MEDICARE - [facility] MA/RI - PDGM [id number] Problems Condition Name Condition Details Condition Category [...] DIABETIC POLYNEUROPAT HY Active 09-04 00:00: 00 HIV/AIDS CARE NURSE (CURRENT) USE OF INSULIN Active 09-04 00:00: [...] ARTIFICIAL KNEE JOINT Active 09-04 00:00: 00 HIV/AIDS CARE NURSE (CURRENT) USE OF INHALED STEROIDS Active 09-04 [...] 04-15 00:00: 00 04-22 00:00 :00 No [id number] Per instruc tions Per instructio ns (route: oral) Med Classific ation: Cardiovas cular Therapy Agents lisinopril 40 mg tablet 09-17 00:00: 00 01-02 23:59 :00 No [id number] 1 tablet DAILY 1 tablet DAILY (route: oral) Med Classific ation: Cardiovas cular Therapy Agents amlodipine 5 mg tablet 04-22 00:00: 00 Yes [id number] 1 tablet DAILY 1 tablet DAILY (route: oral) Med Classific ation: Cardiovas cular Therapy Agents atenolol 25 mg tablet 04-22 00:00: 00 Yes [id number] .[id number] tablet 2 TIMES DAILY .5 tablet 2 TIMES DAILY (route: oral) Med Classific ation: Cardiovas cular Therapy Agents cetirizine 10 mg tablet 04-22 00:00: 00 Yes [id number] 1 tablet DAILY 1 tablet DAILY (route: oral) Med Classific ation: Respirato ry Therapy Agents diphenoxyla te-atropine 2.5 mg-0.025 mg tablet 04-22 00:00: 00 Yes [id number] 1 tablet EVERY 12 HOURS 1 tablet EVERY 12 HOURS (route: oral) Med Classific ation: Gastroint estinal Therapy Agents Eliquis 5 mg tablet 04-22 00:00: 00 11-30 23:59 :00 No [id number] 1 tablet 2 TIMES DAILY 1 tablet 2 TIMES DAILY (route: oral) Med Classific ation: Hematolog ical Agents ferrous sulfate 325 mg (65 mg iron) tablet 04-22 00:00: 00 Yes [id number] 1 tablet DAILY 1 tablet DAILY (route: oral) Med Classific ation: Electroly te Balance-N utritiona l Products fluticasone 100 mcg-salmete rol 50 mcg/dose blistr powdr for inhalation 04-22 00:00: 00 04-28 23:59 :00 No [id number] 2 inhalat ion 2 TIMES DAILY 2 inhalation 2 TIMES DAILY (route: inhalation ) Med Classific ation: Respirato ry Therapy Agents gabapentin 300 mg capsule 04-22 00:00: 00 Yes [id number] 1 capsule 2 TIMES DAILY 1 capsule 2 TIMES DAILY (route: oral) Med Classific ation: Central Nervous System Agents insulin lispro (U-100) 100 unit/mL subcutaneou s solution 04-29 00:00: 00 10-09 23:59 :00 No [id number] 1 unit 3 TIMES A WEEK 1 unit 3 TIMES A WEEK (route: subcutaneo us) Med Classific ation: Endocrine omeprazole 20 mg capsule,del ayed release 04-22 00:00: 00 05-17 23:59 :00 No [id number] 1 capsule DAILY 1 capsule DAILY (route: oral) Med Classific ation: Gastroint estinal Therapy Agents simvastatin 40 mg tablet 8-19 00:00: 00 Yes [id number] 1 tablet BEDTIME 1 tablet BEDTIME (route: oral) Med Classific ation: Cardiovas cular Therapy Agents Tresiba FlexTouch U-200 insulin 200 unit/mL (3 mL) subcutaneou s pen 8- 00:00: 00 04-28 23:59 :00 No [id number] 75 unit DAILY 75 unit DAILY (route: subcutaneo us) Med Classific ation: Endocrine cephalexin 500 mg capsule 04-26 00:00: 00 05-01 23:59 :00 No [id number] 1 capsule 2 TIMES DAILY 1 capsule 2 TIMES DAILY (route: oral) Med Classific ation: Anti-Infe ctive Agents omeprazole 20 mg capsule,del ayed release 9-12 00:00: 00 04-28 23:59 :00 No [id number] 20 mg 2 TIMES DAILY 20 mg 2 TIMES DAILY (route: oral) Med Classific ation: Gastroint estinal Therapy Agents cephalexin 500 mg capsule 2022-09 1-16 00:00: 00 07-27 23:59 :00 No [id number] 1 capsule 3 TIMES DAILY 1 capsule 3 TIMES DAILY (route: oral) Med Classific ation: Anti-Infe ctive Agents Mucinex DM 60 mg-1,200 mg tablet,exte nded release 12 hr 1-10 00:00: 00 04-28 23:59 :00 No [id number] 1 tablet EVERY 12 HOURS 1 tablet EVERY 12 HOURS (route: oral) Med Classific ation: Respirato ry Therapy Agents Lasix 20 mg tablet 2-05 00:00: 00 04-28 23:59 :00 No [id number] 1 tablet DAILY 1 tablet DAILY (route: oral) Med Classific ation: Cardiovas cular Therapy Agents Acidophilus capsule 2-05 00:00: 00 Yes [id number] 1 capsule DAILY 1 capsule DAILY (route: oral) Med Classific ation: Gastroint estinal Therapy Agents multivitami n with minerals tablet 2-05 00:00: 00 04-28 23:59 :00 No [id number] 1 tablet DAILY 1 tablet DAILY (route: oral) Med Classific ation: Electroly te Balance-N utrrolandoa l Products Jardiance 10 mg tablet 2-05 00:00: 00 11-08 23:59 :00 No [id number] 1 tablet EVERY AM 1 tablet EVERY AM (route: oral) Med Classific ation: Endocrine albuterol sulfate HFA 90 mcg/actuati on aerosol inhaler 2- 00:00: 00 04-28 23:59 :00 No [id number] for shortness of breath 2 puff NEEDED 2 puff NEEDED (route: inhalation ) Med Classific ation: Respirato ry Therapy Agents insulin lispro (U-100) 100 unit/mL subcutaneou s solution - 00:00: 00 04-28 00:00 :00 No [id number] Per instruc tions 3 TIMES DAILY Per instructio ns 3 TIMES DAILY (route: subcutaneo us) Med Classific ation: Endocrine cephalexin 500 mg capsule - 00:00: 00 10-20 23:59 :00 No [id number] 1 capsule 2 TIMES DAILY 1 capsule 2 TIMES DAILY (route: oral) Med Classific ation: Anti-Infe ctive Agents Lasix 20 mg tablet 5- 00:00: 00 01-06 23:59 :00 No [id number] 20 mg DAILY 20 mg DAILY (route: oral) Med Classific ation: Cardiovas cular Therapy Agents lisinopril 10 mg tablet 5-19 00:00: 00 Yes [id number] 10 mg DAILY 10 mg DAILY (route: oral) Med Classific ation: Cardiovas cular Therapy Agents furosemide 20 mg tablet -23 00:00: 00 03-28 23:59 :00 No [id number] 20 mg DAILY 20 mg DAILY (route: oral) Med Classific ation: Cardiovas cular Therapy Agents furosemide 40 mg tablet 8-25 00:00: 00 Yes [id number] 1 tablet DAILY 1 tablet DAILY (route: oral) Med Classific ation: Cardiovas cular Therapy Agents insulin lispro (U-100) 100 unit/mL subcutaneou s pen 04-28 00:00: 00 Yes [id number] Per instruc tions 3 TIMES DAILY Per instructio ns 3 TIMES DAILY (route: subcutaneo us) Med Classific ation: Endocrine Tresiba FlexTouch U-200 insulin 200 unit/mL (3 mL) subcutaneou s pen 04-28 00:00: 00 Yes [id number] 50 unit BEDTIME 50 unit BEDTIME (route: subcutaneo us) Med Classific ation: Endocrine 8 Hour Pain Reliever 650 mg tablet,exte nded release 04-28 00:00: 00 Yes [id number] 2 tablet EVERY 8 HOURS 2 tablet EVERY 8 HOURS (route: oral) Med Classific ation: Analgesic , Anti-infl ammatory or Antipyret ic albuterol sulfate HFA 90 mcg/actuati on aerosol inhaler 04-28 00:00: 00 Yes [id number] 2 puff EVERY 6 HOURS 2 puff EVERY 6 HOURS (route: inhalation ) Med Classific ation: Respirato ry Therapy Agents magnesium 400 mg (as magnesium oxide) capsule 04-28 00:00: 00 Yes [id number] 1 capsule DAILY 1 capsule DAILY (route: oral) Med Classific ation: Electroly te Balance-N utritiona l Products nystatin 100,000 unit/gram topical powder 04-28 00:00: 00 Yes [id number] Per instruc tions 2 TIMES DAILY Per instructio ns 2 TIMES DAILY (route: topical) Med Classific ation: Dermatolo gical ondansetron HCl 4 mg tablet 04-28 00:00: 00 Yes [id number] 1 tablet EVERY 8 HOURS 1 tablet EVERY 8 HOURS (route: oral) Med Classific ation: Gastroint estinal Therapy Agents Arnuity Ellipta 100 mcg/actuati on powder for inhalation 04-28 00:00: 00 Yes [id number] 1 inhalat ion NOON 1 inhalation NOON (route: inhalation ) Med Classific ation: Respirato ry Therapy Agents omeprazole 20 mg tablet,steven yed release 04-28 00:00: 00 Yes [id number] 1 tablet DAILY 1 tablet DAILY (route: oral) Med Classific ation: Gastroint estinal Therapy Agents oxygen gas for inhalation 04-28 00:00: 00 Yes [id number] 2 Liter O2 - CONTINUOUS 2 Liter O2 - CONTINUOUS (route: inhalation ) Alternate Route: O2 - NASAL CANNULA. Med Classific ation: Medical Supplies and Durable Medical Equipment (DME) benzonatate 100 mg capsule 04-28 00:00: 00 Yes [id number] 1 capsule 3 TIMES DAILY 1 capsule 3 TIMES DAILY (route: oral) Med Classific ation: Respirato ry Therapy Agents Immunizations Ordered Immunization Name Filled Immunization Name Date Status Comments Refusal Reason COVID-19, COVID-19 2023-09-13 00:00:00 INFLUENZA, TIV (INACTIVATED) 2023-08-02 00:00:00 Vital Signs Vital Name Observation Time Observation Value Commen ts Temperature 2024-09-06 15:10:00.000 98.2 [degF] Temperature 2024-09-05 12:45:00.000 97.3 [degF] Temperature 2024-09-02 19:51:00.000 97 [degF] Temperature 2024-08-29 15:00:00.000 97.7 [degF] Temperature 2024-08-27 14:16:00.000 98.5 [degF] Temperature 2024-08-26 20:00:00.000 98 [degF] Temperature 2024-08-22 12:07:00.000 98 [degF] Temperature 2024-08-19 19:54:00.000 97 [degF] Temperature 2024-08-07 14:22:00.000 97.3 [degF] Temperature 2024-07-30 11:51:00.000 97.3 [degF] Temperature 2024-07-26 14:40:00.000 98.4 [degF] Temperature 2024-07-23 11:34:00.000 97.3 [degF] Temperature 2024-07-17 17:04:00.000 97 [degF] Temperature 2024-07-15 16:00:00.000 97 [degF] Temperature 2024-07-12 07:20:00.000 98.5 [degF] Temperature 2024-07-10 11:13:00.000 97.1 [degF] BMI (%) 2024-08-19 19:54:00.000 0 kg/m2 Calf Circumference (cms) 2024-09-05 12:52:00.000 53 Calf Circumference (cms) 2024-08-07 14:22:00.000 50 Calf Circumference (cms) 2024-07-30 11:51:00.000 52.5 Calf Circumference (cms) 2024-07-23 11:37:00.000 52.5 Height 2024-08-19 19:54:00.000 62 [in_us] Pulse 2024-09-06 15:10:00.000 82 /min Pulse 2024-09-05 12:45:00.000 60 /min Pulse 2024-09-02 19:51:00.000 68 /min Pulse 2024-08-29 15:00:00.000 58 /min Pulse 2024-08-27 14:16:00.000 75 /min Pulse 2024-08-26 20:00:00.000 68 /min Pulse 2024-08-22 12:07:00.000 76 /min Pulse 2024-08-19 19:54:00.000 70 /min Pulse 2024-08-07 14:22:00.000 56 /min Pulse 2024-07-30 11:51:00.000 56 /min Pulse 2024-07-26 14:40:00.000 72 /min Pulse 2024-07-23 11:34:00.000 70 /min Pulse 2024-07-17 17:04:00.000 68 /min Pulse 2024-07-15 16:00:00.000 60 /min Pulse 2024-07-12 07:20:00.000 98 /min Pulse 2024-07-10 11:13:00.000 58 /min O2 Saturation (%) 2024-09-06 15:10:00.000 95 % O2 Saturation (%) 2024-09-05 12:45:00.000 99 % O2 Saturation (%) 2024-09-02 19:51:00.000 97 % O2 Saturation (%) 2024-08-29 15:00:00.000 98 % O2 Saturation (%) 2024-08-27 14:16:00.000 98 % O2 Saturation (%) 2024-08-26 20:00:00.000 97 % O2 Saturation (%) 2024-08-22 12:07:00.000 97 % O2 Saturation (%) 2024-08-19 19:54:00.000 97 % [...] Saturation (%) 2024-07-10 11:13:00.000 97 % Pain 2024-09-06 15:10:00.000 5 Pain 2024-09-05 12:45:00.000 0 Pain 2024-09-02 19:51:00.000 0 Pain 2024-08-29 15:00:00.000 0 Pain 2024-08-27 14:16:00.000 4 Pain 2024-08-26 20:00:00.000 0 Pain 2024-08-22 12:07:00.000 0 Pain 2024-08-19 19:54:00.000 0 Pain 2024-08-07 14:22:00.000 0 Pain 2024-07-30 11:51:00.000 0 Pain 2024-07-26 14:40:00.000 4 Pain 2024-07-23 11:34:00.000 3 Pain 2024-07-17 17:04:00.000 0 Pain 2024-07-15 16:00:00.000 0 Pain 2024-07-12 07:20:00.000 4 Pain 2024-07-10 11:13:00.000 0 Respirations 2024-09-06 15:10:00.000 16 /min Respirations 2024-09-02 19:51:00.000 18 /min Respirations 2024-08-29 15:00:00.000 18 /min Respirations 2024-08-27 14:16:00.000 16 /min Respirations 2024-08-26 20:00:00.000 18 /min Respirations 2024-08-22 12:07:00.000 18 /min Respirations 2024-08-19 19:54:00.000 18 /min Respirations 2024-07-26 14:40:00.000 16 /min Respirations 2024-07-17 17:04:00.000 18 /min Respirations 2024-07-15 16:00:00.000 18 /min Respirations 2024-07-12 07:20:00.000 16 /min Respirations 2024-07-10 11:13:00.000 18 /min Weight (kgs) 2024-08-19 19:54:00.000 1 Systolic Blood Pressure 2024-09-06 15:10:00.000 142 mm [Hg] Systolic Blood Pressure 2024-09-05 12:45:00.000 132 mm [Hg] Systolic Blood Pressure 2024-09-02 19:51:00.000 126 mm [Hg] Systolic Blood Pressure 2024-08-29 15:00:00.000 136 mm [Hg] Systolic Blood Pressure 2024-08-27 14:16:00.000 128 mm [Hg] Systolic Blood Pressure 2024-08-26 20:00:00.000 134 mm [Hg] Systolic Blood Pressure 2024-08-22 12:07:00.000 132 mm [Hg] Systolic Blood Pressure 2024-08-19 19:54:00.000 126 mm [...] 11:13:00.000 118 mm [Hg] Diastolic Blood Pressure 2024-09-06 15:10:00.000 78 mm [Hg] Diastolic Blood Pressure 2024-09-05 12:45:00.000 70 mm [Hg] Diastolic Blood Pressure 2024-09-02 19:51:00.000 64 mm [Hg] Diastolic Blood Pressure 2024-08-29 15:00:00.000 70 mm [Hg] Diastolic Blood Pressure 2024-08-27 14:16:00.000 76 mm [Hg] Diastolic Blood Pressure 2024-08-26 20:00:00.000 76 mm [Hg] Diastolic Blood Pressure 2024-08-22 12:07:00.000 74 mm [Hg] Diastolic Blood Pressure 2024-08-19 19:54:00.000 [...] GET BACK TO WHERE I WAS Goal 2024-09-02 Patient Goal - GET BACK TO WHERE [...] PERIOD. Progress Notes Progress Notes <paragraph>[Visit Date: 2024 by PÉREZ RICHARDS PT]:</paragraph><paragraph>1/3: PATIENT SEEN FOR RECERTIFICATION VISIT. DENIES FALLS OR CHANGES TO MEDICATION REGIMENT. VSS ON 2 L O2 VIA NASAL CANNULA. PATIENT WILL REQUIRE ADDITIONAL PT VISITS IN ORDER TO MEET MOBILITY GOALS WITH HOME PT SERVICES IN SETTING OF RECENT HOSPITAL ADMISSION AND OVERALL REGRESSION AND MOBILITY STATUS AND BILATERAL HIP RANGE OF MOTION. PATIENT HAS DEMONSTRATED ABILITY TO PERFORM BED TO CHAIR TRANSFERS VIA ANETA LIFT TO POWER CHAIR AND ABILITY TO MAINTAIN SEATED/UPRIGHT POSITIONS FOR 2 HOUR INTERVALS PRIOR TO ONSET OF PAIN AND FATIGUE. SINCE HOSPITAL ADMISSION PATIENT HAS HAD DECREASE IN HIP RANGE OF MOTION 60 DEGREES HIP FLEXION RIGHT SIDE, 75 DEGREES HIP FLEXION LEFT SIDE. PATIENT DOES NOT DEMONSTRATE ADEQUATE HIP RANGE OF MOTION FOR MAINTAINING SEATED/UPRIGHT POSITIONS AT THIS TIME, THIS WAS CONFIRMED PATIENT WAS UNABLE TO TOLERATE SEATED POSITION IN ANETA LIFT. [facility] SE[facility] AND [facility] IS CURRENTLY WORKING ON POWER CHAIR ADJUSTMENTS FOR ADJUSTABLE SEAT TO BACK ANGLE AND FOOTPLATES PATIENT DEMONSTRATES POOR KNEE FLEXION BILATERALLY APPROXIMATELY 20-30 DEGREES WITH HARD END FEEL SECONDARY TO BILATERAL KNEE OA, ANTICIPATE BILATERAL KNEES WOULD NOT RESPOND WELL TO RANGE OF MOTION EXERCISES GIVEN ATTEMPTS IN PRIOR VISITS. PATIENT ABLE TO PARTICIPATE IN LOWER EXTREMITY THEREX INCLUDING ACTIVE ASSISTED RANGE OF MOTION TODAY FOR 3 SETS X15 REPETITIONS OF THE FOLLOWING: BILATERAL QUAD SETS, ACTIVE ASSISTED HEEL SLIDES, HIP ABDUCTION/ADDUCTION, SAQ, BILATERAL HEEL CORD STRETCHING WITH BEDSHEET, AND BILATERAL HAMSTRING STRETCHES FOR 3 SECONDS HOLD. MAX ASSIST X1 REQUIRED FOR LOWER EXTREMITY MANAGEMENT SECONDARY TO WEAKNESS AND RANGE OF MOTION DEFICITS. PATIENT REQUIRED MAX ASSIST X1 FOR REPOSITIONING/ROLLING TODAY WELL. PATIENT WILL REQUIRE HOME PT SERVICES IN ORDER TO MAXIMIZE CURRENT LEVEL OF FUNCTION AND INDEPENDENCE GIVEN REASONS ABOVE. EDUCATED PATIENT ON-CALL US FIRST POLICY, SURVEY, AND ON-CALL HOURS.</paragraph> <paragraph>[Visit Date: 2024 by CHARLIE LEON LPN]:</paragraph><paragraph>SNV 1/2 ABNORMAL VITALS: BS 130, OTHER VITALS WITHIN PARAMETERS FALLS: NO FALLS MEDICATION CHANGES: NO CHANGES ASSESSMENT: PATIENT IS ALERT AND ORIENTED X3 SITTING UP IN BED UPON SN ARRIVAL, CONVERSATIONAL AND COOPPERATIVE DURING VISIT. PT WEARING NC WITH O2 AT 2L, APPEARS COMFORTABLE AND IN NAD. SC DRAINING CLEAR YELLOW URINE. NO S/S OF INFECTION. VSS, AFEBRILE, SAT 99% ON 2 L OF O2, BS 130, NO S/S OF HYPO/HYPERGLYCEMIA. NO ISSUE WITH BOWELS. APPETITE GOOD. PCP OFFICE RECIEVED LABS, ANEMIA IMPROVING, COPY SCANNED IN CHART. EDUCATION: INFECTION PREVENTION, HIGH PROTEIN DIET INTERVENTIONS NEEDED AT NEXT VISIT: ASSESSMENT, TEACHING COMMUNICATION WITH MD: NOT NEEDED AT THIS VISIT PT AND CAREGIVER INSTRUCTED TO CALL [facility] WITH ANY QUESTIONS OR CONCERNS AND/OR CHANGES IN CONDITION, STATE UNDERSTANDING</paragraph> Encounters Start Date/Time End Date/Time Encounter Type Admission Type Attending Clinicians Care Facility Care Department Encounter ID Discharge Date Discharge Status Discharge Condition Discharge Reason Percent Goals Met 2023-09-13 00:00:00 2024-09-06 00:00:00 Outpatient RECERTIFIC [facility] [id number] [id number]
--- OUTSIDE RECORDS SUMMARY | 2024-09-09 14:37 | XMS_ITS | Clinical Summary ---
Author Organization Unknown Care Team Providers Care Intelligence Agent Name Role Phone АНДРЕЙ DANIELS, SHELIA Unavailable Unavailable KARMEN JAMESON OT Unavailable Unavailkeli DOMÍNGUEZ RN, SKYE Unavailable Unavailable GORAN NAVA LPN, SHAHEED Unavailable Unavail kostas GARCIA RN, CLINICAL DENTAL SURGERY DOCTOR, ANNA Un available Unavailable MAURICE MEEK, PÉREZ Unavailable Unavailable Payers Payer Name Policy Type Policy Number Effective Date Expira tion Date MEDICARE - [facility] [place] - PDGM [id number] Problems Condition Name Condition Details Condition Category [...] DIABETIC POLYNEUROPAT HY Active 09-04 00:00: 00 NETWORK MGR (CURRENT) USE OF INSULIN Active 09-04 00:00: [...] ARTIFICIAL KNEE JOINT Active 09-04 00:00: 00 NETWORK MGR (CURRENT) USE OF INHALED STEROIDS Active 09-04 [...] 04-15 00:00: 00 04-22 00:00 :00 No [id number] Per instruc tions Per instructio ns (route: oral) Med Classific ation: Cardiovas cular Therapy Agents lisinopril 40 mg tablet 09-17 00:00: 00 01-02 23:59 :00 No [id number] 1 tablet DAILY 1 tablet DAILY (route: oral) Med Classific ation: Cardiovas cular Therapy Agents amlodipine 5 mg tablet 04-22 00:00: 00 Yes [id number] 1 tablet DAILY 1 tablet DAILY (route: oral) Med Classific ation: Cardiovas cular Therapy Agents atenolol 25 mg tablet 04-22 00:00: 00 Yes [id number] .[id number] tablet 2 TIMES DAILY .5 tablet 2 TIMES DAILY (route: oral) Med Classific ation: Cardiovas cular Therapy Agents cetirizine 10 mg tablet 04-22 00:00: 00 Yes [id number] 1 tablet DAILY 1 tablet DAILY (route: oral) Med Classific ation: Respirato ry Therapy Agents diphenoxyla te-atropine 2.5 mg-0.025 mg tablet 04-22 00:00: 00 Yes [id number] 1 tablet EVERY 12 HOURS 1 tablet EVERY 12 HOURS (route: oral) Med Classific ation: Gastroint estinal Therapy Agents Eliquis 5 mg tablet 04-22 00:00: 00 11-30 23:59 :00 No [id number] 1 tablet 2 TIMES DAILY 1 tablet 2 TIMES DAILY (route: oral) Med Classific ation: Hematolog ical Agents ferrous sulfate 325 mg (65 mg iron) tablet 04-22 00:00: 00 Yes [id number] 1 tablet DAILY 1 tablet DAILY (route: oral) Med Classific ation: Electroly te Balance-N utritiona l Products fluticasone 100 mcg-salmete rol 50 mcg/dose blistr powdr for inhalation 04-22 00:00: 00 04-28 23:59 :00 No [id number] 2 inhalat ion 2 TIMES DAILY 2 inhalation 2 TIMES DAILY (route: inhalation ) Med Classific ation: Respirato ry Therapy Agents gabapentin 300 mg capsule 04-22 00:00: 00 Yes [id number] 1 capsule 2 TIMES DAILY 1 capsule 2 TIMES DAILY (route: oral) Med Classific ation: Central Nervous System Agents insulin lispro (U-100) 100 unit/mL subcutaneou s solution 04-29 00:00: 00 10-09 23:59 :00 No [id number] 1 unit 3 TIMES A WEEK 1 unit 3 TIMES A WEEK (route: subcutaneo us) Med Classific ation: Endocrine omeprazole 20 mg capsule,del ayed release 04-22 00:00: 00 05-17 23:59 :00 No [id number] 1 capsule DAILY 1 capsule DAILY (route: oral) Med Classific ation: Gastroint estinal Therapy Agents simvastatin 40 mg tablet 8-19 00:00: 00 Yes [id number] 1 tablet BEDTIME 1 tablet BEDTIME (route: oral) Med Classific ation: Cardiovas cular Therapy Agents Tresiba FlexTouch U-200 insulin 200 unit/mL (3 mL) subcutaneou s pen 8- 00:00: 00 04-28 23:59 :00 No [id number] 75 unit DAILY 75 unit DAILY (route: subcutaneo us) Med Classific ation: Endocrine cephalexin 500 mg capsule 04-26 00:00: 00 05-01 23:59 :00 No [id number] 1 capsule 2 TIMES DAILY 1 capsule 2 TIMES DAILY (route: oral) Med Classific ation: Anti-Infe ctive Agents omeprazole 20 mg capsule,del ayed release 9-12 00:00: 00 04-28 23:59 :00 No [id number] 20 mg 2 TIMES DAILY 20 mg 2 TIMES DAILY (route: oral) Med Classific ation: Gastroint estinal Therapy Agents cephalexin 500 mg capsule 2022-09 1-16 00:00: 00 07-27 23:59 :00 No [id number] 1 capsule 3 TIMES DAILY 1 capsule 3 TIMES DAILY (route: oral) Med Classific ation: Anti-Infe ctive Agents Mucinex DM 60 mg-1,200 mg tablet,exte nded release 12 hr 1-10 00:00: 00 04-28 23:59 :00 No [id number] 1 tablet EVERY 12 HOURS 1 tablet EVERY 12 HOURS (route: oral) Med Classific ation: Respirato ry Therapy Agents Lasix 20 mg tablet 2-05 00:00: 00 04-28 23:59 :00 No [id number] 1 tablet DAILY 1 tablet DAILY (route: oral) Med Classific ation: Cardiovas cular Therapy Agents Acidophilus capsule 2-05 00:00: 00 Yes [id number] 1 capsule DAILY 1 capsule DAILY (route: oral) Med Classific ation: Gastroint estinal Therapy Agents multivitami n with minerals tablet 2-05 00:00: 00 04-28 23:59 :00 No [id number] 1 tablet DAILY 1 tablet DAILY (route: oral) Med Classific ation: Electroly te Balance-N utrrolandoa l Products Jardiance 10 mg tablet 2-05 00:00: 00 11-08 23:59 :00 No [id number] 1 tablet EVERY AM 1 tablet EVERY AM (route: oral) Med Classific ation: Endocrine albuterol sulfate HFA 90 mcg/actuati on aerosol inhaler 2- 00:00: 00 04-28 23:59 :00 No [id number] for shortness of breath 2 puff NEEDED 2 puff NEEDED (route: inhalation ) Med Classific ation: Respirato ry Therapy Agents insulin lispro (U-100) 100 unit/mL subcutaneou s solution - 00:00: 00 04-28 00:00 :00 No [id number] Per instruc tions 3 TIMES DAILY Per instructio ns 3 TIMES DAILY (route: subcutaneo us) Med Classific ation: Endocrine cephalexin 500 mg capsule - 00:00: 00 10-20 23:59 :00 No [id number] 1 capsule 2 TIMES DAILY 1 capsule 2 TIMES DAILY (route: oral) Med Classific ation: Anti-Infe ctive Agents Lasix 20 mg tablet 5- 00:00: 00 01-06 23:59 :00 No [id number] 20 mg DAILY 20 mg DAILY (route: oral) Med Classific ation: Cardiovas cular Therapy Agents lisinopril 10 mg tablet 5-19 00:00: 00 Yes [id number] 10 mg DAILY 10 mg DAILY (route: oral) Med Classific ation: Cardiovas cular Therapy Agents furosemide 20 mg tablet -23 00:00: 00 03-28 23:59 :00 No [id number] 20 mg DAILY 20 mg DAILY (route: oral) Med Classific ation: Cardiovas cular Therapy Agents furosemide 40 mg tablet 8-25 00:00: 00 Yes [id number] 1 tablet DAILY 1 tablet DAILY (route: oral) Med Classific ation: Cardiovas cular Therapy Agents insulin lispro (U-100) 100 unit/mL subcutaneou s pen 04-28 00:00: 00 Yes [id number] Per instruc tions 3 TIMES DAILY Per instructio ns 3 TIMES DAILY (route: subcutaneo us) Med Classific ation: Endocrine Tresiba FlexTouch U-200 insulin 200 unit/mL (3 mL) subcutaneou s pen 04-28 00:00: 00 Yes [id number] 50 unit BEDTIME 50 unit BEDTIME (route: subcutaneo us) Med Classific ation: Endocrine 8 Hour Pain Reliever 650 mg tablet,exte nded release 04-28 00:00: 00 Yes [id number] 2 tablet EVERY 8 HOURS 2 tablet EVERY 8 HOURS (route: oral) Med Classific ation: Analgesic , Anti-infl ammatory or Antipyret ic albuterol sulfate HFA 90 mcg/actuati on aerosol inhaler 04-28 00:00: 00 Yes [id number] 2 puff EVERY 6 HOURS 2 puff EVERY 6 HOURS (route: inhalation ) Med Classific ation: Respirato ry Therapy Agents magnesium 400 mg (as magnesium oxide) capsule 04-28 00:00: 00 Yes [id number] 1 capsule DAILY 1 capsule DAILY (route: oral) Med Classific ation: Electroly te Balance-N utritiona l Products nystatin 100,000 unit/gram topical powder 04-28 00:00: 00 Yes [id number] Per instruc tions 2 TIMES DAILY Per instructio ns 2 TIMES DAILY (route: topical) Med Classific ation: Dermatolo gical ondansetron HCl 4 mg tablet 04-28 00:00: 00 Yes [id number] 1 tablet EVERY 8 HOURS 1 tablet EVERY 8 HOURS (route: oral) Med Classific ation: Gastroint estinal Therapy Agents Arnuity Ellipta 100 mcg/actuati on powder for inhalation 04-28 00:00: 00 Yes [id number] 1 inhalat ion NOON 1 inhalation NOON (route: inhalation ) Med Classific ation: Respirato ry Therapy Agents omeprazole 20 mg tablet,steven yed release 04-28 00:00: 00 Yes [id number] 1 tablet DAILY 1 tablet DAILY (route: oral) Med Classific ation: Gastroint estinal Therapy Agents oxygen gas for inhalation 04-28 00:00: 00 Yes [id number] 2 Liter O2 - CONTINUOUS 2 Liter O2 - CONTINUOUS (route: inhalation ) Alternate Route: O2 - NASAL CANNULA. Med Classific ation: Medical Supplies and Durable Medical Equipment (DME) benzonatate 100 mg capsule 04-28 00:00: 00 Yes [id number] 1 capsule 3 TIMES DAILY 1 capsule [...] BLOCKAGE/LEAKAGE, HEAVY SEDIMENT. 1 - 3 PRN ASSISTED VISITS FOR CATHETER CHANGE(S) AND/OR TROUBLESHOOTING. [code = SKILLED NURSE TO INSTRUCT PATIENT/CAREGIVER ON CARE AND MANAGEMENT OF SUPRAPUBIC CATHETER. SKILLED NURSE FOR SUPRAPUBIC CATHETER INSERTION/MAINTENANCE UTILIZING 16 FR 10 CC CATHETER, CHANGE Q4 WEEKS AND PRN FOR LEAKING OR MALFUNCTIONING. IRRIGATE SUPRAPUBIC CATHETER WITH 30-60CC NORMAL SALINE PRN BLOCKAGE/LEAKAGE, HEAVY SEDIMENT. 1 - 3 PRN ASSISTED VISITS FOR CATHETER CHANGE(S) AND/OR TROUBLESHOOTING.] Future [...] CARE WILL BE ESTABLISHED THAT MEETS PATIENT'S ASSISTED NEEDS AND INCLUDES PATIENT GOAL FOR HOME [...] TO TOLERATE SEATED POSITION IN [place]. [facility] SEATING AND [employer] IS CURRENTLY WORKING ON POWER CHAIR ADJUSTMENTS [...] 00:00:00 2024-09-06 00:00:00 Outpatient RECERTIFIC ATSKYE KIDD [facility] [id number]
[2024-09-09 16:48] LABS: Appearance Urine Turbid; Color Urine Yellow; Glucose Urine UA Negative (Negative); Leukocyte Esterase Urine Large (3+) (Negative); Nitrite Urine Negative (Negative); PH 6.5 (5.0-9.0); UMIC TRIGGER UACC YES; Urine Blood Moderate (2+) (Negative); Urine Ketones Negative (Negative); Urine Protein 30 (1+) mg/dL (Neg-Trace)
[2024-09-09 17:24] LABS: Bacteria Urine 4+ (None Seen); Hyaline Casts Urine 0-2 /LPF (0-2); UACC Culture Trigger YES; WBC Urine 21-50 /HPF (0-5)
== END 2024-09-09 12:01 | disposition home or self-care (01) ==
LOC: HO.HVNA 12:00
PROVIDERS: PCP Family Medicine; Visit Provider Family Medicine
DX: N39.0 Urinary tract infection, site not specified (principal)
CPT/HCPCS: 81001; 87086

== ENCOUNTER 2025-08-20 11:20 | Outpatient (AMB) | payer MEDICARE, OTHER, SELFPAY ==
--- NOTE | 2025-08-20 11:25 | A.OFFPC_ITS ---
Vital Signs 08/20/25 11:37 BP 182/111 H Pulse 60 Pulse Source Pulse Oximeter Temp 97.4 F Temp Source Tympanic Pulse Oximetry (%) 98 Oxygen Delivery Method Room Air Intake Visit Reasons: Leslie pt Undercollar Maker Required: No Accompanied by: PERFORMANCE INSTRUCTOR Allergies No Known Allergies Allergy (Verified 08/20/25 11:26) environmental Allergy (Unknown, Uncoded 08/20/25 11:26) Unknown Medication List - Last Reconciled 08/20/25 by Slick Werner MD albuterol sulfate 90 mcg/actuation (ProAir HFA) 2 puffs PO Q4H amlodipine 5 mg PO DAILY atenolol 25 mg PO BID docusate sodium (Colace) 100 mg PO BID Eliquis (apixaban) 5 mg PO BID NS ferrous sulfate 325 mg PO BID 90 days fluticasone furoate 100 mcg/actuation (Arnuity Ellipta) 1 inh inhalation DAILY fluticasone propionate 50 mcg/actuation (Flonase Allergy Relief) 1 spray intranasal DAILY furosemide 40 mg PO DAILY gabapentin 300 mg PO BID insulin aspart U-100 (Novolog FlexPen U-100 Insulin aspart) 2-5 with snacks subcut 3 times a day; insulin degludec (Tresiba FlexTouch U-200 insulin) 62 units subcut DAILY omeprazole 20 mg PO DAILY pen needle, diabetic (BD Ultra-Fine Short Pen Needle) Six times a day simvastatin 40 mg PO BEDTIME Tobacco use date assessed: 08/20/25 Fall risk assessment: No Falls in past year Last assessed Fall Risk: 08/20/25 Dental Screening Dental Screen Date: 08/20/25 Did you have a dental visit in the last 12 months?: No Did you have a dental problem in the last 6 months where you did not have access to dental care?: No HPI HPI Comments History of Present Illness Details History of Present Illness The patient is a 70 year old female presenting for a follow-up visit and management of multiple chronic problems after a recent hospitalization. She was recently hospitalized at [facility] a little over a week ago for a urinary tract infection that progressed to a kidney infection and sepsis. The patient has a history of recurrent DVT, with the most recent event occurring about three months ago in her left leg, and is now on Eliquis for life. She has a diagnosis of COPD and has been on oxygen for about a year, which was prescri bed at [facility]. She smoked for about a dozen years but quit 40 years ago. Her history includes congestive heart failure, for which she takes furosemide for fluid retention. She reports that Dr. Byrne never used the term congestive heart failure but prescribed water pills for leg swelling. An echocardiogram was reportedly performed during her recent hospitalization at [facility]. The patient has type 2 diabetes managed with Admelog Solostar on a sliding scale and 62 units of Tresiba at night. Her last A1c was 6.9 in May 2024. She also has a history of stage 4 chronic kidney disease and sees a general office associate in [place]. She takes gabapentin 300 mg twice daily for a burning sensation in her legs. She has been non-ambulatory since undergoing radiation for a past cancer, which caus ed her legs to go out from underneath her. Due to a ureteral stricture and recurrent UTIs, she has a nephrostomy tube and a suprapubic catheter, which is changed monthly by a visiting nurse. She reports a history of iron deficiency and takes iron supplements, which cause nausea. She believes she had a blood transfusion during her last hospitalization. Medical History: - Sepsis secondary to UTI, requiring hos pitalization approximately one week prior. - Recurrent Deep Vein Thrombosis (DVT), with last event 3 months ago in left leg. - Chronic Obstructive Pulmonary Disease (COPD), diagnosed after a lung function test a long time ago. - Hypertension. - Congestive Heart Failure. - Type 2 Diabetes Mellitus. - Hypercholesterolemia. - Stage 4 Chronic Kidney Disease. - Peripheral Neuropathy in legs. - Iron Deficiency Anemia, with recent bl ood transfusion. - Ureteral stricture. - History of unspecified cancer treated with radiation therapy. - History of pancreatitis or ketoacidosi s possibly related to Jardiance. Surgical History: - Suprapubic catheter in situ. - Nephrostomy tube in situ. - Radiation therapy for a past cancer. Medications: - Albuterol inhaler for COPD. - Amlodipine 5 mg for blood pressure. - Atenolol 25 mg twice a day for blood p ressure. - Eliquis 5 mg twice a day for DVT. - Fluticasone/Anoro Ellipta once daily f or COPD. - Furosemide 40 mg for fluid retention. - Gabapentin 300 mg in the morning and 3 00 mg at night for leg nerve pain. - Admelog Solostar on a sliding scale fo r diabetes. - Tresiba 62 units at night for diabetes . - Simvastatin 40 mg for cholesterol. - Iron supplements for iron deficiency. - Oxygen therapy. - Tylenol for pain. Family History: - Heart disease. - Cancer. - Grandmother had diabetes. Diagnostic Results: - Labs: HgbA1c was 6.9% in May. - Labs: Blood sugar this morning was 126 mg/dL. - Tests and Diagnostics: EKG during rece nt hospitalization was fine. - Tests and Diagnostics: Echocardiogram was performed during recent hospitalization at [facility]. - Tests and Diagnostics: A lung function test performed a long time ago reportedly showed COPD. - Tests and Diagnostics: Patient reports having had chest x-rays in the past. Social History - Living Situation: Lives with her broth er and estxyx-wi-egz. - Advance Directives: Brother is her hea lthcare proxy. - Code Status: Not a DNR (Do Not Resusci dunaway). - Substance Use: Denies alcohol and illi cit drug use. - Tobacco Use: Former smoker, quit 40 ye ars ago after smoking for approximately 12 years. - Functional Status: Non-ambulatory; tsering ble to walk since her cancer treatment. - Home Care: Receives services from [facility] visiting nurse, who comes to the house to draw blood work and changes her suprapubic catheter monthly. [facility] Medical History (Updated 08/20/25 @ 12:21 by Slikc Werner MD) Encounter to establish care with new provider CKD stage 4 due to type 2 diabetes mellitus Urinary tract infection Chronic obstructive pulmonary disease requiring supplemental oxygen Congestive heart failure Obesity due to excess calories Type 2 diabetes with nephropathy Type 2 diabetes mellitus with chronic kidney disease Endometrial cancer Essential hypertension Dyslipidemia Peripheral neuropathy Hyperlipemia Asthma Osteoarthritis GERD (gastroesophageal reflux disease) Arthritis HTN (hypertension) Kidney stones Diabetes mellitus with hyperglycemia Surgical History Hx of partial thyroidectomy Hx of dilation and curettage History of appendectomy Family History Mother Glioblastoma Social History Household Members: Family Housing: House Do you presently have visiting nurse or other home services: No Patient Tobacco Use Status: Former Tobacco user e-Cigarette/Vaping Use: Never Used service: No Current occupational status: retired Cognitive needs: Yes (Power wheelchair) Hearing needs: No Vision needs: Yes (Reading glasses PRN) Questionnaire PHQ-9 Over the last 2 weeks, how often have you been bothered by any of the following problems? 1. Little interest or pleasure in doing things: not at all 2. Feeling down, depressed, or hopeless: not at all 3. Trouble falling or staying asleep, or sleeping too much: not at all 4. Feeling tired or having little energy: not at all 5. Poor appetite or overeating: not at all 6. Feeling bad about yourself - or that you are a failure or have let yourself or your family down: not at all 7. Trouble concentrating on things, such as reading the newspaper or watching television: not at all 8. Moving or speaking so slowly that other people could have noticed. Or the opposite - being so fidgety or restless that you have been moving around a lot more than usual: not at all 9. Thoughts that you would be better off or of hurting yourself in some way: not at all Total score: 0 Depression Screening Interpretation: Negative Depression Screening Done: Yes 63361 - PHQ-9 Billing: Yes Source: Developed by Drs. Anderson Jones, Mercedes Linda, Klaus Harris and colleagues, with an educational linda from [employer]. Thrive Questionnaire Date Thrive assessed: 08/20/25 I am a: Patient What is your living situation today?: I have a steady place to live Within the past 12 months, did the food you bought not last and you didn't have the money to get more?: Never true Within the past 12 months, did you worry whether your food would run out before you got money to buy more?: Never true Do you have trouble paying for medicines?: No Do you have trouble getting transportation to medical appointments?: No Do you have trouble paying your heating and electricity bill?: No Do you have trouble taking care of your child, family member or friend?: No Do you have trouble with day-to-day activities such as bathing, preparing meals, shopping, managing finances, etc.?: No Are you currently unemployed and looking for a job?: No Are you interested in more education?: No THRIVE Score: 0 AUDIT C Alcohol Use Questionnaire (AUDIT-C) 1. How often do you have a drink containing alcohol?: Never Total Score: 0 Score Reviewed/Action Taken: Yes Review of Systems Narrative Review of Systems - Neurological: Reports a burning sensation in her legs. - Gastrointestinal: Reports nausea, which she attributes to her iron supplement. - Constitutional: Reports fatigue. - General: Denies nausea or vomiting (at present), chest pain, and shortness of breath. - Genitourinary: Reports history of recurrent urinary tract infections. All systems reviewed & are unremarkable except as reviewed in HPI and above Physical exam (Primary Care) Vital Signs: Last Vital Signs Temp 97.4 F 08/20/25 11:37 Pulse 60 08/20/25 11:37 BP 182/111 H 08/20/25 11:37 Pulse Ox 98 08/20/25 11:37 Oxygen Delivery Method Room Air 08/20/25 11:37 Tobacco/Smoking Status: Tobacco use Status Tobacco use date assessed 08/20/25 08/20/25 11:40 Patient Tobacco Use Status Former Tobacco user 08/20/25 11:28 e-Cigarette/Vaping Use Never Used 08/20/25 11:40 PHQ-9: PHQ-9 Score PHQ-9: Total score 0 08/20/25 11:52 Depression Screening Interpretation: Negative Thrive Assessment: Date of Thrive Assessment Date Thrive assessed 08/20/25 08/20/25 11:52 Narrative Physical Exam General: +Alert and oriented, Well nourished, No acute distress. Eye: Pupils are equal, round and reactive to light, Intact accommodation, Extraocular movements are intact, Normal conjunctiva, Vision unchanged. HENT: Normocephalic, Atraumatic, Tympanic membranes are clear, Normal hearing, Oral mucosa is moist, No pharyngeal erythema, Ear canals patent. Respiratory: Lungs CTA bilaterally, No wheeze, Respirations are non-labored, On oxygen therapy. Cardiovascular: Regular rate, Regular rhythm, S1 auscultated, S2 auscultated, No murmur, Good pulses equal in all extremities, Normal peripheral perfusion, No edema. Gastrointestinal: Soft, Non-tender, Non-distended, Normal bowel sounds, No organomegaly. Musculoskeletal: Normal range of motion, Normal strength, No tenderness, No swelling, No deformity, Normal gait. Integumentary: Warm, Dry, Decker, Intact. Neurologic: Alert, Oriented, Normal sensory, Normal motor function, No focal defects, Cranial Nerves II-XII are grossly intact, Normal deep tendon reflexes. Psychiatric: Cooperative, Appropriate mood & affect, Normal judgment. Coding Level of Care Code New Pt Level 5 (05846) Diagnoses Urinary tract infection without hematuria, site unspecified N39.0 Urinary tract infection type: site unspecified Hematuria presence: without hematuria Chronic obstructive pulmonary disease requiring supplemental oxygen J44.9; Z99.81 Congestive heart failure, unspecified HF chronicity, unspecified heart failure type I50.9 Heart failure type: unspecified Heart failure chronicity: unspecified Type 2 diabetes mellitus with stage 3 chronic kidney disease, with long-term current use of insulin, unspecified whether stage 3a or 3b CKD E11.22; N18.30; Z79.4 Diabetes mellitus senior living insulin use: with senior living use Chronic kidney disease stage: stage 3 (moderate) Chronic kidney disease stage 3 subtype: unspecified whether 3a or 3b Essential hypertension I10 CKD stage 4 due to type 2 diabetes mellitus E11.22; N18.4 Other iron deficiency anemia D50.8 Iron deficiency anemia type: other iron deficiency Encounter to establish care with new provider Z76.89 Additional Codes PHQ-9 - 04882 - PHQ-9 Billing: Yes ([id number]) Assessment & Plan Assessment & Plan (1) Urinary tract infection: Comment: - The patient recently recovered from a severe infection requiring hospitalization. - She has a history of recurrent UTIs, likely related to her ureteral stricture and indwelling suprapubic catheter. - Plan includes education on hygiene, adequate hydration, and timely monthly changes of her suprapubic catheter to prevent recurrence. Code(s): N39.0 - Urinary tract infection, site not specified Category: Medical Qualifiers: Urinary tract infection type: site unspecified Hematuria presence: without hematuria Qualified Code(s): N39.0 - Urinary tract infection, site not specified (2) Chronic obstructive pulmonary disease requiring supplemental oxygen: Comment: - The diagnosis of COPD is questionable given that she quit smoking 40 years ago. - Differential includes restrictive lung disease, fibrosis, or pulmonary hypertension secondary to CHF. - A lung function test will be ordered to clarify the diagnosis, and results from [facility] will be requested. - The test will be scheduled for the spring () to accommodate her mob ility issues. Code(s): J44.9 - Chronic obstructive pulmonary disease, unspecified; Z99.81 - Dependence on supplemental oxygen Category: Medical (3) Congestive heart failure: Comment: - The diagnosis is not definitively established, though she is on furosemide for leg swelling. - An echocardiogram was done at [facility], but records are not available. - An echocardiogram will be ordered to assess heart function, to be scheduled in the spring. Code(s): I50.9 - Heart failure, unspecified Category: Medical Qualifiers: Heart failure type: unspecified Heart failure chronicity: unspecified Qualified Code(s): I50.9 - Heart failure, unspecified (4) Type 2 diabetes mellitus with chronic kidney disease: Comment: - Her last A1c was 6.9, but labs are out of date. - She has a history of a reaction, possibly pancreatitis or DKA, with Jardiance. - Plan is to obtain updated labs and consider initiating a GLP-1 agonist like Ozempic or Zepbound for improved control and potential weight loss. Code(s): E11.22 - Type 2 diabetes mellitus with diabetic chronic kidney disease Category: Medical Qualifiers: Diabetes mellitus senior living insulin use: with senior living use Chronic kidney disease stage: stage 3 (moderate) Chronic kidney disease stage 3 subtype: unspecified whether 3a or 3b Qualified Code(s): E11.22 - Type 2 diabetes mellitus with diabetic chronic kidney disease; N18.30 - Chronic kidney disease, stage 3 unspecified; Z79.4 - long-term (current) use of insulin (5) Essential hypertension: Comment: - Blood pressure was elevated during the visit, although it is reportedly normal at home. - Plan is to have the home visiting nurse monitor her blood pressures. Code(s): I10 - Essential (primary) hypertension Category: Medical (6) CKD stage 4 due to type 2 diabetes mellitus: Comment: - Per prior labs has CKD Stage 4, and she does follow with a general office associate in [place] Code(s): E11.22 - Type 2 diabetes mellitus with diabetic chronic kidney disease; N18.4 - Chronic kidney disease, stage 4 (severe) Category: Medical (7) Iron deficiency anemia: Comment: - The patient reports significant nausea with oral iron supplements. - Iron levels will be checked with blood work. - If needed, IV iron infusions will be considered as an alternative, though they require hospital visits. Code(s): D50.9 - Iron deficiency anemia, unspecified Category: Medical Qualifiers: Iron deficiency anemia type: other iron deficiency Qualified Code(s): D50.8 - Other iron deficiency anemias (8) Encounter to establish care with new provider: Comment: - The patient has difficulty with transportation. - Updated labs (including A1c, iron panel, B12, folate) are needed. - A requisition will be provided for the [facility] visiting nurse to draw blood and send it to the lab. - The patient is overdue for a mammogram. - A mammogram will be ordered, and the patient will be instructed to inform the scheduling staff of her inability to stand so accommodations can be made. Code(s): Z76.89 - Persons encountering health services in other specified circumstances Category: Medical Plan: Health Maintenance: - An order will be placed for a mammogram, as the patient is overdue for screening. - Discussed preventative strategies for recurrent urinary tract infections, including hygiene, hydration, and timely catheter changes. - Discussed updating diabetes management to improve control and reduce the burden of injections. Patient was informed and verbally consented to the use of an ambient scribe for clinic note documentation during this visit. Plan I discussed with the patient her complex medical history and the importance of obtaining updated laboratory studies to safely manage her conditions, particularly her diabetes, kidney disease, and anemia. I explained the need for further investigation into her diagnoses of COPD and congestive heart failure, as the supporting evidence is unclear. We formulated a plan to order a pulmonary function test and an echocardiogram to clarify these diagnoses. Acknowledging her difficulty with transportation, especially during the winter, we agreed to schedule these tests in the spring. I addressed her concerns about recurrent UTIs, advising on hygiene and hydration. I provided a laboratory requisition for her visiting nurse to perform a blood draw at home, and the patient verbalized understanding. We also discussed ordering an overdue mammogram and the options for changing her diabetes regimen pending lab results. The patient and her family agreed with the proposed plan. Orders: Orders Complete Blood Count Auto Diff Today Z00.00 - Encounter for general adult medical examination without abnormal findings Hepatitis A,B,C Profile Today Z00.00 - Encounter for general adult medical examination without abnormal findings Lipid Panel Today Z00.00 - Encounter for general adult medical examination without abnormal findings Microalbumin, Random (w Creat) Today Z00.00 - Encounter for general adult medical examination without abnormal findings Syphilis Screen Today Z00.00 - Encounter for general adult medical examination without abnormal findings Vitamin D 25-OH Total Today Z00.00 - Encounter for general adult medical examination without abnormal findings PFT pulmonary function test Today J44.9 - Chronic obstructive pulmonary disease, unspecified, Z99.81 - Dependence on supplemental oxygen Comprehensive Met. Panel Today Z00.00 - Encounter for general adult medical examination without abnormal findings Hemoglobin A1c Today Z00.00 - Encounter for general adult medical examination without abnormal findings HIV Ab/Ag Today Z00.00 - Encounter for general adult medical examination without abnormal findings TSH reflex Free T4 Today Z00.00 - Encounter for general adult medical examination without abnormal findings CA echo transthoracic complete Today I50.9 - Heart failure, unspecified MM tomosynthesis screening BI Today Z12.31 - Encounter for screening mammogram for malignant neoplasm of breast IRON PROFILE Today D50.9 - Iron deficiency anemia, unspecified Vitamin B12 and Folate Today D64.9 - Anemia, unspecified Patient Instructions: - Please have your visiting nurse from [facility] contact our office about drawing your blood at home. - We will be ordering several tests to better understand your heart and lung conditions, including a heart ultrasound (echocardiogram) and a breathing test (lung function test). - You can expect calls to schedule these tests, but please inform them to schedule the appointments for the spring, around November or December. - We will also order a mammogram. - When they call to schedule, please let them know that you are unable to stand so they can make the necessary arrangements for you. - To help prevent urinary tract infections, be sure to maintain good hygiene around your suprapubic catheter, drink plenty of fluids, and make sure the catheter is changed every month. - Take your iron supplement as prescribed, but let us know if the nausea continues, as we will check your levels and may consider other options. - Once we receive your blood test results, we may discuss changing your diabetes medication to a newer weekly injection that could help with blood sugar and weight control.
[2025-08-20 11:37] VITALS: BP 182/111; PULSE 60; TEMP 36.3; O2SAT 98
--- OUTSIDE RECORDS SUMMARY | 2025-08-20 15:04 | XMS_ITS ---
Author Organization [facility] Care Team Providers [employer] Sales Representative Name Role Phone Haja Lezama Unavailable Unavailable Norah Bernal Unavailable Unavailable Allergies and adverse reactions No Known Allergies Care Team Name Role Address Phone Organization Dates Haja Lezama PCP [address], [address], [place], [address], [place] (Office): : [facility] 09/29/2021 - 12/11/2021 Norah Bernal [facility] 09/29/2021 - 12/11/2021 Immunizations Immunization Status Vaccine Details Vaccine Code CodeSystem Date Notes TB 1 Step Mantoux (PPD) completed tuberculin skin test; unspecified formulation lotNumber: [id number] expiry: 12/24/2022 Mfg: NDC Given 0.1 ml Left Forearm subcutaneously 98 CVX created date: 06/26/2021 consent date: 06/26/2021 administer ed date: 06/26/2021 TB 2 Step Mantoux Skin Test completed tuberculin skin test; unspecified formulation lotNumber: [id number] expiry: 06/03/2022 Mfg: PAR pharmaceical Given 0.1 ml Left Forearm intradermally Step 1 of Multi-step with next step required 98 CVX created date: 07/09/2021 consent date: 07/09/2021 administer ed date: 07/09/2021 PPSV23 (Previous Pneumococcal Polysaccharide)V accine cancelled pneumococcal polysaccharide vaccine, 23 valent 33 CVX created date: 10/11/2021 consent date: 10/11/2021 Educated by tayla rossi on 10/07/2021 SARS-COV-2 (COVID-19) completed SARS-COV-2 (COVID-19) vaccine, mRNA, spike protein, LNP, preservative free, 100 mcg/0.5mL dose or 50 mcg/0.25mL dose Mfg: Moderna COVID-19 Vaccine Step 2 of Multi-step with next step required 207 CVX created date: 06/25/2021 administer ed date: 11/24/2020 SARS-COV-2 (COVID-19) completed SARS-COV-2 (COVID-19) vaccine, mRNA, spike protein, LNP, preservative free, 100 mcg/0.5mL dose or 50 mcg/0.25mL dose Mfg: Moderna COVID-19 Vaccine Step 1 of Multi-step with next step required 207 CVX created date: 06/25/2021 administer ed date: 10/19/2020 Moderna Covid-19 Booster (SARS-COV-2) vaccine completed SARS-COV-2 (COVID-19) vaccine, mRNA, spike protein, LNP, preservative free, 100 mcg/0.5mL dose or 50 mcg/0.25mL dose Mfg: MODERNA 207 CVX created date: 06/25/2021 administer ed date: 04/21/2021 Mental Status Section Date Assessment Total Score Description 12/11/2021 BIMS 15 cognitively int act CAM 0 No delirium ind icated PHQ-9 00 10/04/2021 BIMS 15 cognitively int act CAM 0 No delirium ind icated PHQ-9 00 Insurance Providers Coverage Status Coverage Type Relationship to Subscriber Member Identifier Subscriber Identifier Group Identifier Payer Identifier and Other information Code: 1 Code System OID:[email or web address] [id number]. [id number] Code System Name: Source of Payment Typology (PHDSC) Display: Medicare Translation : Code: CLARY Code System: OID:[email or web address] [id number]. [id number] Code System Name: Insurance Type Code ([id number]) Display Name: Medicare Part A Problems Problem # Description Date of onset Resolved Date Code CodeSystem Concern Status 1 EDEMA, UNSPECIFIED 11/30/2021 520469493 SNOMED C T active 2 DIFFICULTY IN WALKING, NOT ELSEWHERE CLASSIFIED 09/29/[address] active 3 MUSCLE WASTING AND ATROPHY, NOT ELSEWHERE CLASSIFIED, MULTIPLE SITES 09/29/[address] active 4 MUSCLE WASTING AND ATROPHY, NOT ELSEWHERE CLASSIFIED, LEFT LOWER LEG 2021 09/29/[address] completed 5 OBSTRUCTIVE AND REFLUX UROPATHY, UNSPECIFIED 06/28/[address] active 6 ACUTE KIDNEY FAILURE, UNSPECIFIED 06/25/2021 09/29/[address] completed 7 CALCULUS OF URETER 06/25/[address] active 8 DIFFICULTY IN WALKING, NOT ELSEWHERE CLASSIFIED 06/25/2021 09/29/[address] completed 9 ESSENTIAL (PRIMARY) HYPERTENSION 06/25/[address] active 10 HYPERKALEMIA 06/25/[address] activ e 11 HYPERLIPIDEMIA, UNSPECIFIED 06/25/[address] active 12 MALIGNANT NEOPLASM OF ENDOMETRIUM 06/25/[address] active 13 MORBID (SEVERE) OBESITY DUE TO EXCESS CALORIES 06/25/[address] active 14 MUSCLE WASTING AND ATROPHY, NOT ELSEWHERE CLASSIFIED, RIGHT LOWER LEG 06/25/2021 09/29/[address] completed 15 TYPE 2 DIABETES MELLITUS WITHOUT COMPLICATIONS 06/25/[address] active 16 UNSPECIFIED HYDRONEPHROSIS 06/25/[address] active 17 URINARY TRACT INFECTION, SITE NOT SPECIFIED 06/25/2021 09/29/[address] completed Reason for Referral No Reasons for Referral Entered Social History Social History Observation Description Start Date End Date Code Code System Current Smoking Status Tobacco smoking consumption unknown 934161427 SNOMED CT Sex Assigned At Female 1955 22417-4 [facility] Gender Identity Sexual Orientation Vital Signs Code Code System Vitals Name Values and Units Timing Information 8462-4 [facility] Blood Pressure-Diastolic Value=59 Un its=mmHg 12/11/2021 8480-6 [facility] Blood Pressure-Systolic Gwbpk=228 Un its=mmHg 12/11/2021 8867-4 [facility] Heart rate Value=65.0 Units=/min 05/2022 9279-1 [facility] Respiratory Rate Value=16.0 Units=/m in 12/11/2021 8310-5 [facility] Body Temperature Value=98.1 Units= F 12/11/2021 77264-0 [facility] O2 % BldC Oximetry Value=96.0 Units= % 12/11/2021 2339-0 [facility] Blood Sugar Prbdq=570.0 Units=mg/dL 12/11/2021 26999-1 [facility] Pain Level Value=0.0 12/11/2021 21403-8 [facility] Weight Gbjpt=667.5 Units=Lbs 12/2021 8302-2 [facility] Height Value=65.0 Units=Inches 06/25/2021
--- OUTSIDE RECORDS SUMMARY | 2025-09-01 19:00 | XMS_ITS | Clinical Summary ---
Author Organization Unknown Care Team Providers Care Controlled Area Checker Name Role Phone SRUTHI DANEILS, EMILIE Unavailable Unavailable CATRACHITA RN, SKYE Unavailable Unavailable JENELLE PT, LARRY Unavailable Unavailable SAIRA RN, LAYTON Unavailable Unavailable MAURICE PT, PÉREZ Unavailable Unavailable DONALD RN, KRISTOFER Unavailable Unavailable Payers Payer Name Policy Type Policy Number Effective Date Expira tion Date MEDICARE - [facility] - PDGM [id number] Problems Condition Name Condition Details Condition Category Status Onset Date Resolution Date Last Treatment Date Treating Clinician Comments 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 COLI] Active 09-04 00:00: 00 URINARY TRACT INFECTION, SITE NOT SPECIFIED Active 09-04 00:00: 00 ACUTE KIDNEY FAILURE WITH TUBULAR NECROSIS Active 09-04 00:00: 00 OTHER CHRONIC PAIN Active - 00:00: 00 TYPE 2 DIABETES MELLITUS WITH DIABETIC POLYNEUROPAT HY Active 09-04 00:00: 00 ACUTE EMBOLISM AND THROMBOSIS OF DEEP VEIN OF L LOW EXTREM Active 09-04 00:00: 00 HYPERLIPIDEM IA, UNSPECIFIED Active 09-04 00:00: 00 HYPOCALCEMIA Active 09-04 00:00: 00 SECONDARY HYPERPARATHY ROIDISM OF RENAL ORIGIN Active 09-04 00:00: 00 GASTRO-ESOPH AGEAL REFLUX DISEASE WITHOUT ESOPHAGITIS Active 09-04 00:00: 00 ACIDOSIS, UNSPECIFIED Active 09-04 00:00: 00 ACUTE AND CHRONIC RESPIRATORY FAILURE WITH HYPOXIA Active 09-04 00:00: 00 Obesity, class 3 Active 09-04 00:00: 00 BODY MASS INDEX [BMI] 50.0-59.9, ADULT Active 09-04 00:00: 00 ENCOUNTER FOR ATTN TO OTH ARTIF OPENINGS OF URINARY TRACT Active 09-04 00:00: 00 ENCOUNTER FOR ATTENTION TO CYSTOSTOMY Active 09-04 00:00: 00 ENCOUNTER FOR FITTING AND ADJUSTMENT OF URINARY DEVICE Active 09-04 00:00: 00 [facility] (CURRENT) USE OF ANTICOAGULAN TS Active 09-04 00:00: 00 [facility] (CURRENT) USE OF INSULIN Active 09-04 00:00: 00 [facility] (CURRENT) USE OF INHALED STEROIDS Active 09-04 00:00: 00 DEPENDENCE ON SUPPLEMENTAL OXYGEN Active 09-04 00:00: 00 PERSONAL HISTORY OF URINARY CALCULI Active 09-04 00:00: 00 PRESENCE OF UNSPECIFIED ARTIFICIAL KNEE JOINT Active 09-04 00:00: 00 PERSONAL HISTORY OF NICOTINE DEPENDENCE Active 09-04 00:00: 00 ACQUIRED ABSENCE OF OTHER ORGANS Active 09-04 00:00: 00 TRANSPORTATI ON INSECURITY Active 09-04 00:00: 00 DEPENDENCE ON WHEELCHAIR Active 09-04 00:00: 00 Allergies, Adverse Reactions, Alerts Allergy Name Allergy Type Status Severity Reaction(s) Onset Date Inactive Date Treating Clinician Comments NKA Propensity to adverse reactions Active 2025-03 14:15:3 8 Medications Ordered Medication Name Filled Medication Name Start Date Stop Date Current Medication? Ordering Clinician Indication Dosage Frequency Signature (SIG) Comments Components lisinopril 40 mg tablet 04-15 00:00: 00 04-22 00:00 :00 No [id number] Per instruc tions Per instructio ns (route: oral) Med Classific ation: Cardiovas cular Therapy Agents lisinopril 40 mg tablet 1-14 00:00: 00 01-02 23:59 :00 No [id number] 1 tablet DAILY 1 tablet DAILY (route: oral) Med Classific ation: Cardiovas cular Therapy Agents amlodipine 5 mg tablet 04-22 00:00: 00 03-05 23:59 :00 No [id number] 1 tablet DAILY 1 tablet DAILY (route: oral) Med Classific ation: Cardiovas cular Therapy Agents atenolol 25 mg tablet 04-22 00:00: 00 03-05 23:59 :00 No [id number] .5 tablet 2 TIMES DAILY .5 tablet 2 TIMES DAILY (route: oral) Med Classific ation: Cardiovas cular Therapy Agents cetirizine 10 mg tablet 04-22 00:00: 00 03-05 23:59 :00 No [id number] 1 tablet DAILY 1 tablet DAILY (route: oral) Med Classific ation: Respirato ry Therapy Agents diphenoxyla te-atropine 2.5 mg-0.025 mg tablet 04-22 00:00: 00 03-05 23:59 :00 No [id number] 1 tablet EVERY 12 HOURS 1 tablet EVERY 12 HOURS (route: oral) Med Classific ation: Gastroint estinal Therapy Agents Eliquis 5 mg tablet 04-22 00:00: 00 11-30 23:59 :00 No [id number] 1 tablet 2 TIMES DAILY 1 tablet 2 TIMES DAILY (route: oral) Med Classific ation: Hematolog ical Agents ferrous sulfate 325 mg (65 mg iron) tablet 04-22 00:00: 00 03-05 23:59 :00 No [id number] 1 tablet DAILY 1 tablet DAILY (route: oral) Med Classific ation: Electroly te Balance-N utritiona l Products fluticasone 100 mcg-salmete rol 50 mcg/dose blistr powdr for inhalation 04-22 00:00: 00 04-28 23:59 :00 No [id number] 2 inhalat ion 2 TIMES DAILY 2 inhalation 2 TIMES DAILY (route: inhalation ) Med Classific ation: Respirato ry Therapy Agents gabapentin 300 mg capsule 04-22 00:00: 00 03-05 23:59 :00 No [id number] 1 capsule 2 TIMES DAILY 1 capsule 2 TIMES DAILY (route: oral) Med Classific ation: Central Nervous System Agents insulin lispro (U-100) 100 unit/mL subcutaneou s solution 04-29 00:00: 00 10-09 23:59 :00 No [id number] 1 unit 3 TIMES A WEEK 1 unit 3 TIMES A WEEK (route: subcutaneo us) Med Classific ation: Endocrine omeprazole 20 mg capsule,del ayed release 04-22 00:00: 00 05-17 23:59 :00 No [id number] 1 capsule DAILY 1 capsule DAILY (route: oral) Med Classific ation: Gastroint estinal Therapy Agents simvastatin 40 mg tablet 04-22 00:00: 00 03-05 23:59 :00 No [id number] 1 tablet BEDTIME 1 tablet BEDTIME (route: oral) Med Classific ation: Cardiovas cular Therapy Agents Tresiba FlexTouch U-200 insulin 200 unit/mL (3 mL) subcutaneou s pen 04-22 00:00: 00 04-28 23:59 :00 No [id number] 75 unit DAILY 75 unit DAILY (route: subcutaneo us) Med Classific ation: Endocrine cephalexin 500 mg capsule 04-26 00:00: 00 05-01 23:59 :00 No [id number] 1 capsule 2 TIMES DAILY 1 capsule 2 TIMES DAILY (route: oral) Med Classific ation: Anti-Infe ctive Agents omeprazole 20 mg capsule,del ayed release 05-16 00:00: 00 04-28 23:59 :00 No [id number] 20 mg 2 TIMES DAILY 20 mg 2 TIMES DAILY (route: oral) Med Classific ation: Gastroint estinal Therapy Agents cephalexin 500 mg capsule 2022-09-16 00:00: 00 07-27 23:59 :00 No [id number] 1 capsule 3 TIMES DAILY 1 capsule 3 TIMES DAILY (route: oral) Med Classific ation: Anti-Infe ctive Agents Mucinex DM 60 mg-1,200 mg tablet,exte nded release 12 hr 1-10 00:00: 00 04-28 23:59 :00 No [id number] 1 tablet EVERY 12 HOURS 1 tablet EVERY 12 HOURS (route: oral) Med Classific ation: Respirato ry Therapy Agents Lasix 20 mg tablet 2- 00:00: 00 04-28 23:59 :00 No [id number] 1 tablet DAILY 1 tablet DAILY (route: oral) Med Classific ation: Cardiovas cular Therapy Agents Acidophilus capsule 2-05 00:00: 00 03-05 23:59 :00 No [id number] 1 capsule DAILY 1 capsule DAILY (route: oral) Med Classific ation: Gastroint estinal Therapy Agents multivitami n with minerals tablet 2- 00:00: 00 04-28 23:59 :00 No [id number] 1 tablet DAILY 1 tablet DAILY (route: oral) Med Classific ation: Electroly te Balance-N utritiona l Products Jardiance 10 mg tablet 2-05 00:00: 00 11-08 23:59 :00 No [id number] 1 tablet EVERY AM 1 tablet EVERY AM (route: oral) Med Classific ation: Endocrine albuterol sulfate HFA 90 mcg/actuati on aerosol inhaler 2-05 00:00: 00 04-28 23:59 :00 No [id number] for shortness of breath 2 puff NEEDED 2 puff NEEDED (route: inhalation ) Med Classific ation: Respirato ry Therapy Agents insulin lispro (U-100) 100 unit/mL subcutaneou s solution 2-05 00:00: 00 04-28 00:00 :00 No [id number] Per instruc tions 3 TIMES DAILY Per instructio ns 3 TIMES DAILY (route: [facility]) Med Classific ation: Endocrine cephalexin 500 mg capsule 10-11 00:00: 00 10-20 23:59 :00 No [id number] 1 capsule 2 TIMES DAILY 1 capsule 2 TIMES DAILY (route: oral) Med Classific ation: Anti-Infe ctive Agents Lasix 20 mg tablet 01-02 00:00: 00 01-06 23:59 :00 No [id number] 20 mg DAILY 20 mg DAILY (route: oral) Med Classific ation: Cardiovas cular Therapy Agents lisinopril 10 mg tablet 01-20 00:00: 00 03-05 23:59 :00 No [id number] 10 mg DAILY 10 mg DAILY (route: oral) Med Classific ation: Cardiovas cular Therapy Agents furosemide 20 mg tablet 03-26 00:00: 00 03-28 23:59 :00 No [id number] 20 mg DAILY 20 mg DAILY (route: oral) Med Classific ation: Cardiovas cular Therapy Agents furosemide 40 mg tablet 04-28 00:00: 00 03-05 23:59 :00 No [id number] 1 tablet DAILY 1 tablet DAILY (route: oral) Med Classific ation: Cardiovas cular Therapy Agents insulin lispro (U-100) 100 unit/mL subcutaneou s pen 04-28 00:00: 00 03-05 23:59 :00 No [id number] Per instruc tions 3 TIMES DAILY Per instructio ns 3 TIMES DAILY (route: [facility]) Med Classific ation: Endocrine Tresiba FlexTouch U-200 insulin 200 unit/mL (3 mL) subcutaneou s pen 04-28 00:00: 00 03-05 23:59 :00 No [id number] 50 unit BEDTIME 50 unit [facility] Med Classific ation: Endocrine 8 Hour Pain Reliever 650 mg tablet,exte nded release 04-28 00:00: 03-05 23:59 :00 No [id number] 2 tablet EVERY 8 HOURS 2 tablet EVERY 8 HOURS (route: oral) Med Classific ation: Analgesic , Anti-infl ammatory or Antipyret ic albuterol sulfate HFA 90 mcg/actuati on aerosol inhaler 04-28 00:00: 03-05 23:59 :00 No [id number] 2 puff EVERY 6 HOURS 2 puff EVERY 6 HOURS (route: inhalation ) Med Classific ation: Respirato ry Therapy Agents magnesium 400 mg (as magnesium oxide) capsule 04-28 00:00: 00 03-05 23:59 :00 No [id number] 1 capsule DAILY 1 capsule DAILY (route: oral) Med Classific ation: Electroly te Balance-N utritiona l Products nystatin 100,000 unit/gram topical powder 04-28 00:00: 00 03-05 23:59 :00 No [id number] Per instruc tions 2 TIMES DAILY Per instructio ns 2 TIMES DAILY (route: topical) Med Classific ation: Dermatolo gical ondansetron HCl 4 mg tablet 04-28 00:00: 00 03-05 23:59 :00 No [id number] 1 tablet EVERY 8 HOURS 1 tablet EVERY 8 HOURS (route: oral) Med Classific ation: Gastroint estinal Therapy Agents Arnuity Ellipta 100 mcg/actuati on powder for inhalation 04-28 00:00: 00 03-05 23:59 :00 No [id number] 1 inhalat ion NOON 1 inhalation NOON (route: inhalation ) Med Classific ation: Respirato ry Therapy Agents omeprazole 20 mg tablet,steven yed release 04-28 00:00: 00 03-05 23:59 :00 No [id number] 1 tablet DAILY 1 tablet DAILY (route: oral) Med Classific ation: Gastroint estinal Therapy Agents oxygen gas for inhalation 04-28 00:00: 00 03-05 23:59 :00 No [id number] 2 Liter O2 - CONTINUOUS 2 Liter O2 - CONTINUOUS (route: inhalation ) Alternate Route: O2 - NASAL CANNULA. Med Classific ation: Medical Supplies and Durable Medical Equipment (DME) benzonatate 100 mg capsule 8-25 00:00: 00 03-05 23:59 :00 No [id number] 1 capsule 3 TIMES DAILY 1 capsule 3 TIMES DAILY (route: oral) Med Classific ation: Respirato ry Therapy Agents levofloxaci n 500 mg tablet 2-10 00:00: 00 10-18 23:59 :00 No [id number] 1 tablet NOON 1 tablet NOON (route: oral) Med Classific ation: Anti-Infe ctive Agents acetaminoph en 500 mg tablet 03-07 00:00: 00 Yes [id number] 2 tablet 3 TIMES DAILY 2 tablet 3 TIMES DAILY (route: oral) Med Classific ation: Analgesic , Anti-infl ammatory or Antipyret ic amlodipine 5 mg tablet 03-07 00:00: 00 Yes [id number] 1 tablet DAILY 1 tablet DAILY (route: oral) Med Classific ation: Cardiovas cular Therapy Agents Arnuity Ellipta 100 mcg/actuati on powder for inhalation 03-07 00:00: 00 Yes [id number] 1 inhalat ion DAILY 1 inhalation DAILY (route: inhalation ) Med Classific ation: Respirato ry Therapy Agents atenolol 25 mg tablet 03-07 00:00: 00 Yes [id number] 0.5 tablet 2 TIMES DAILY 0.5 tablet 2 TIMES DAILY (route: oral) Med Classific ation: Cardiovas cular Therapy Agents biotin 2,500 mcg capsule 03-07 00:00: 00 Yes [id number] 1 capsule DAILY 1 capsule DAILY (route: oral) Med Classific ation: Electroly te Balance-N utritiona l Products cetirizine 10 mg tablet 03-07 00:00: 00 Yes [id number] 1 tablet DAILY 1 tablet DAILY (route: oral) Med Classific ation: Respirato ry Therapy Agents Culturelle 10 billion cell capsule 03-07 00:00: 00 Yes [id number] 1 capsule DAILY 1 capsule DAILY (route: oral) Med Classific ation: Gastroint estinal Therapy Agents Eliquis 5 mg tablet 03-07 00:00: 00 Yes [id number] Per instruc tions 2 TIMES DAILY Per instructio ns 2 TIMES DAILY (route: oral) Med Classific ation: Hematolog ical Agents ferrous sulfate 325 mg (65 mg iron) tablet 03-07 00:00: 00 06-23 23:59 :00 No [id number] 1 tablet DAILY 1 tablet DAILY (route: oral) Med Classific ation: Electroly te Balance-N utritiona l Products furosemide 40 mg tablet 03-07 00:00: 00 Yes [id number] 0.5 tablet DAILY 0.5 tablet DAILY (route: oral) Med Classific ation: Cardiovas cular Therapy Agents gabapentin 300 mg capsule 03-07 00:00: 00 Yes [id number] 1 capsule 2 TIMES DAILY 1 capsule 2 TIMES DAILY (route: oral) Med Classific ation: Central Nervous System Agents insulin lispro (U-100) 100 unit/mL subcutaneou s solution 03-07 00:00: 00 Yes [id number] Per instruc tions BEFORE MEALS Per instructio ns BEFORE MEALS (route: subcutaneo us) Med Classific ation: Endocrine multivitami n tablet 03-07 00:00: 00 Yes [id number] 1 tablet DAILY 1 tablet DAILY (route: oral) Med Classific ation: Electroly te Balance-N utritiona l Products omeprazole 20 mg capsule,del ayed release 03-07 00:00: 00 Yes [id number] 1 capsule 2 TIMES DAILY 1 capsule 2 TIMES DAILY (route: oral) Med Classific ation: Gastroint estinal Therapy Agents oxygen gas for inhalation 03-07 00:00: 00 Yes [id number] 2 Liter O2 - CONTINUOUS 2 Liter O2 - CONTINUOUS (route: inhalation ) Alternate Route: O2 - NASAL CANNULA. Med Classific ation: Medical Supplies and Durable Medical Equipment (DME) oxymetazoli ne 0.05 % nasal spray 03-07 00:00: 00 Yes [id number] 1 spray DAILY 1 spray DAILY (route: nasal) Med Classific ation: Respirato ry Therapy Agents ProAir RespiClick 90 mcg/actuati on breath activated 03-07 00:00: 00 Yes [id number] 2 puff 2 TIMES DAILY 2 puff 2 TIMES DAILY (route: inhalation ) Med Classific ation: Respirato ry Therapy Agents simvastatin 40 mg tablet 03-07 00:00: 00 Yes [id number] 1 tablet BEDTIME 1 tablet BEDTIME (route: oral) Med Classific ation: Cardiovas cular Therapy Agents Tresiba U-100 Insulin 100 unit/mL subcutaneou s solution 03-07 00:00: 00 Yes [id number] 58 unit DAILY 58 unit DAILY (route: subcutaneo us) Med Classific ation: Endocrine Iron (ferrous sulfate) 325 mg (65 mg iron) tablet 2024-09 00:00: 00 Yes [id number] 1 tablet 3 TIMES DAILY 1 tablet 3 TIMES DAILY (route: oral) Med Classific ation: Electroly te Balance-N utritiona l Products Antacid 200 mg (as calcium carbonate 500 mg) chewable tablet 2024-09 00:00: 00 Yes [id number] 2 tablet 3 TIMES DAILY 2 tablet 3 TIMES DAILY (route: oral) Med Classific ation: Gastroint estinal Therapy Agents ergocalcife rol (vitamin D2) 1,250 mcg (50,000 unit) capsule 2024-09 00:00: 00 Yes [id number] 1 capsule WEEKLY 1 capsule WEEKLY (route: oral) Med Classific ation: Electroly te Balance-N utritiona l Products Immunizations Ordered Immunization Name Filled Immunization Name Date Status Comments Refusal Reason INFLUENZA, TIV (INACTIVATED) 2025-06-20 00:00:00 Vital Signs Vital Name Observation Time Observation Value Commen ts Temperature 2025-08-18 13:18:00.000 97.4 [degF] Temperature 2025-08-14 12:50:00.000 97.2 [degF] Temperature 2025-07-30 13:46:00.000 98.5 [degF] Temperature 2025-07-28 16:28:00.000 97.9 [degF] Temperature 2025-07-23 13:12:00.000 98.4 [degF] Temperature 2025-07-21 09:36:00.000 98.8 [degF] Temperature 2025-07-18 12:10:00.000 98.5 [degF] Temperature 2025-07-14 12:16:00.000 97.5 [degF] Temperature 2025-07-10 16:30:00.000 98.5 [degF] Temperature 2025-07-07 11:38:00.000 98 [degF] BMI (%) 2025-08-14 12:50:00.000 56 kg/m2 Height 2025-08-14 12:50:00.000 65 [in_us] Pulse 2025-08-18 13:18:00.000 60 /min Pulse 2025-08-14 12:50:00.000 76 /min Pulse 2025-07-30 13:46:00.000 68 /min Pulse 2025-07-28 16:28:00.000 60 /min Pulse 2025-07-23 13:12:00.000 68 /min Pulse 2025-07-21 09:36:00.000 66 /min Pulse 2025-07-18 12:10:00.000 68 /min Pulse 2025-07-14 12:16:00.000 76 /min Pulse 2025-07-10 16:30:00.000 66 /min Pulse 2025-07-07 11:38:00.000 60 /min O2 Saturation (%) 2025-08-18 13:18:00.000 98 % O2 Saturation (%) 2025-08-14 12:50:00.000 92 % O2 Saturation (%) 2025-07-30 13:46:00.000 99 % O2 Saturation (%) 2025-07-28 16:28:00.000 99 % O2 Saturation (%) 2025-07-23 13:12:00.000 98 % O2 Saturation (%) 2025-07-21 09:36:00.000 98 % O2 Saturation (%) 2025-07-18 12:10:00.000 96 % O2 Saturation (%) 2025-07-14 12:16:00.000 97 % O2 Saturation (%) 2025-07-10 16:30:00.000 98 % O2 Saturation (%) 2025-07-07 11:38:00.000 98 % Respirations 2025-08-18 13:18:00.000 18 /min Respirations 2025-08-14 12:50:00.000 20 /min Respirations 2025-07-30 13:46:00.000 16 /min Respirations 2025-07-28 16:28:00.000 18 /min Respirations 2025-07-23 13:12:00.000 16 /min Respirations 2025-07-21 09:36:00.000 20 /min Respirations 2025-07-18 12:10:00.000 16 /min Respirations 2025-07-14 12:16:00.000 20 /min Respirations 2025-07-10 16:30:00.000 16 /min Respirations 2025-07-07 11:38:00.000 18 /min Weight (lbs) 2025-08-18 13:26:00.000 340.6 [lb_av] Weight (lbs) 2025-08-14 12:50:00.000 340 [lb_av] Systolic Blood Pressure 2025-08-18 13:18:00.000 144 mm [Hg] Systolic Blood Pressure 2025-08-14 12:50:00.000 104 mm [Hg] Systolic Blood Pressure 2025-07-30 13:46:00.000 116 mm [Hg] Systolic Blood Pressure 2025-07-28 16:28:00.000 118 mm [Hg] Systolic Blood Pressure 2025-07-23 13:12:00.000 114 mm [Hg] Systolic Blood Pressure 2025-07-21 09:36:00.000 140 mm [Hg] Systolic Blood Pressure 2025-07-18 12:10:00.000 106 mm [Hg] Systolic Blood Pressure 2025-07-14 12:16:00.000 120 mm [Hg] Systolic Blood Pressure 2025-07-10 16:30:00.000 114 mm [Hg] Systolic Blood Pressure 2025-07-07 11:38:00.000 132 mm [Hg] Diastolic Blood Pressure 2025-08-18 13:18:00.000 70 mm [Hg] Diastolic Blood Pressure 2025-08-14 12:50:00.000 62 mm [Hg] Diastolic Blood Pressure 2025-07-30 13:46:00.000 74 mm [Hg] Diastolic Blood Pressure 2025-07-28 16:28:00.000 70 mm [Hg] Diastolic Blood Pressure 2025-07-23 13:12:00.000 70 mm [Hg] Diastolic Blood Pressure 2025-07-21 09:36:00.000 70 mm [Hg] Diastolic Blood Pressure 2025-07-18 12:10:00.000 62 mm [Hg] Diastolic Blood Pressure 2025-07-14 12:16:00.000 60 mm [Hg] Diastolic Blood Pressure 2025-07-10 16:30:00.000 70 mm [Hg] Diastolic Blood Pressure 2025-07-07 11:38:00.000 68 mm [Hg] Plan of Treatment Planned Activity Planned Date Details Comments Future Scheduled Test SKILLED NU RSE TO EVALUATE PATIENT, IDENTIFY PRIMARY AND CO-MORBID CONDITIONS CODED PER CODING GUIDELINES, AND DEVELOP PATIENT SPECIFIC PLAN OF CARE THAT INCLUDES PATIENT GOAL FOR HOME HEALTH. PLAN OF CARE TO INCLUDE 3 PRN VISIT(S) FOR OASIS DATA COLLECTION/COMPREHENSIVE ASSESSMENT AT TIMEPOINTS PER FEDERAL REGULATIONS. THIS INCLUDES VISITS FOR ROCAEL, RECERT, SCIC, AND/OR DC. [code = SKILLED NURSE TO EVALUATE PATIENT, IDENTIFY PRIMARY AND CO-MORBID CONDITIONS CODED PER CODING GUIDELINES, AND DEVELOP PATIENT SPECIFIC PLAN OF CARE THAT INCLUDES PATIENT GOAL FOR HOME HEALTH. PLAN OF CARE TO INCLUDE 3 PRN VISIT(S) FOR OASIS DATA COLLECTION/COMPREHENSIVE ASSESSMENT AT TIMEPOINTS PER FEDERAL REGULATIONS. THIS INCLUDES VISITS FOR ROCAEL, RECERT, SCIC, AND/OR DC.] Future Scheduled Test SKILLED NU RSE MAY COLLECT URINE SAMPLE FOR URINE REAGENT STRIP TESTING AND/OR URINALYSIS WITH C S 1-3 PRN IF INDICATED FOR SIGNS AND SYMPTOMS OF UTI. IF REAGENT STRIP TEST IS POSITIVE FOR UTI, SKILLED NURSE TO TAKE URINE SAMPLE TO LAB FOR URINE C S AND REPORT RESULTS TO PHYSICIAN. [code = SKILLED NURSE MAY COLLECT URINE SAMPLE FOR URINE REAGENT STRIP TESTING AND/OR URINALYSIS WITH C S 1-3 PRN IF INDICATED FOR SIGNS AND SYMPTOMS OF UTI. IF REAGENT STRIP TEST IS POSITIVE FOR UTI, SKILLED NURSE TO TAKE URINE SAMPLE TO LAB FOR URINE C S AND REPORT RESULTS TO PHYSICIAN.] Future Scheduled Test SKILLED NU RSE FOR O/A, TEACHING AND MANAGEMENT OF CKD FOR EARLY IDENTIFICATION OF EXACERBATION OF DISEASE PROCESS [code = SKILLED NURSE FOR O/A, TEACHING AND MANAGEMENT OF CKD FOR EARLY IDENTIFICATION OF EXACERBATION OF DISEASE PROCESS] Future Scheduled Test SKILLED NU RSE FOR O/A OF RESPIRATORY SYSTEM TO IDENTIFY CHANGES ASSOCIATED WITH EXACERBATION AND TO PROVIDE SKILLED TEACHING ON MANAGEMENT OF RESPIRATORY FAILURE W/HYPOXIA DISEASE PROCESS. [code = SKILLED NURSE FOR O/A OF RESPIRATORY SYSTEM TO IDENTIFY CHANGES ASSOCIATED WITH EXACERBATION AND TO PROVIDE SKILLED TEACHING ON MANAGEMENT OF RESPIRATORY FAILURE W/HYPOXIA DISEASE PROCESS.] Future Scheduled Test SKILLED NU RSE FOR O/A AND SKILLED TEACHING RELATED TO SIGNS AND SYMPTOMS OF INFECTION AND INFECTION CONTROL MEASURES. [code = SKILLED NURSE FOR O/A AND SKILLED TEACHING RELATED TO SIGNS AND SYMPTOMS OF INFECTION AND INFECTION CONTROL MEASURES.] Future Scheduled Test SKILLED NU RSE FOR O/A OF SELF-CARE DEFICITS AND TO PROVIDE TEACHING RELATED TO SAFE PROVISION OF ADLS. [code = SKILLED NURSE FOR O/A OF SELF-CARE DEFICITS AND TO PROVIDE TEACHING RELATED TO SAFE PROVISION OF ADLS.] Future Scheduled Test SKILLED NU RSE TO OBTAIN BLOOD SUGAR PRN FOR SIGNS AND SYMPTOMS OF HYPO/HYPERGLYCEMIA. IF OBTAINED BY PATIENT/CAREGIVER PRIOR TO VISIT AND PATIENT IS NOT SYMPTOMATIC, SKILLED NURSE TO RECORD READING FROM PATIENT LOG. [code = SKILLED NURSE TO OBTAIN BLOOD SUGAR PRN FOR SIGNS AND SYMPTOMS OF HYPO/HYPERGLYCEMIA. IF OBTAINED BY PATIENT/CAREGIVER PRIOR TO VISIT AND PATIENT IS NOT SYMPTOMATIC, SKILLED NURSE TO RECORD READING FROM PATIENT LOG.] Future Scheduled Test SKILLED NU RSE FOR O/A AND SKILLED TEACHING IN MANAGEMENT OF DVT, EMBOLISM DISEASE. [code = SKILLED NURSE FOR O/A AND SKILLED TEACHING IN MANAGEMENT OF DVT, EMBOLISM DISEASE.] Future Scheduled Test PHYSICAL T HERAPIST TO EVALUATE PATIENT FOR BED MOBILITY AND STRENGTH [code = PHYSICAL THERAPIST TO EVALUATE PATIENT FOR BED MOBILITY AND STRENGTH] Future Scheduled Test SKILLED NU RSE FOR O/A AND SKILLED TEACHING RELATED TO ALTERED SKIN INTEGRITY PREVENTION PRESSURE INJURY [code = SKILLED NURSE FOR O/A AND SKILLED TEACHING RELATED TO ALTERED SKIN INTEGRITY PREVENTION PRESSURE INJURY] Future Scheduled Test SKILLED NU RSE TO [...] OR TRAINED PATIENT/CAREGIVER TO OBTAIN MEASUREMENT OF THIGH IN CM DAILY AND REPORT AN INCREASE OF 2 CM TO PHYSICIAN/PROVIDER. [code = SKILLED NURSE [...] OR TRAINED PATIENT/CAREGIVER TO OBTAIN MEASUREMENT OF THIGH IN CM DAILY AND REPORT AN INCREASE OF 2 CM TO PHYSICIAN/PROVIDER.] Future Scheduled Test SKILLED [...] Scheduled Test SKILLED NU RSE TO PERFORM ENVIRONMENTAL SAFETY RISK ASSESSMENT AND FALL RISK ASSESSMENT AND PROVIDE INSTRUCTION TO IMPLEMENT ENVIRONMENTAL SAFETY AND FALL PREVENTION STRATEGIES THROUGHOUT THE CERTIFICATION PERIOD. SKILLED NURSE WILL MAINTAIN SITUATIONAL AWARENESS AND WILL NOTIFY CLINICAL SERVICE SECRETARY AND PHYSICIAN/PROVIDER WITH ANY CHANGE IN CONDITION. [code = SKILLED NURSE TO PERFORM ENVIRONMENTAL SAFETY RISK ASSESSMENT AND FALL RISK ASSESSMENT AND PROVIDE INSTRUCTION TO IMPLEMENT ENVIRONMENTAL SAFETY AND FALL PREVENTION STRATEGIES THROUGHOUT THE CERTIFICATION PERIOD. SKILLED NURSE WILL MAINTAIN SITUATIONAL AWARENESS AND WILL NOTIFY CLINICAL SERVICE SECRETARY AND PHYSICIAN/PROVIDER WITH ANY CHANGE IN CONDITION.] Future Scheduled Test SKILLED NU RSE FOR OBSERVATION AND ASSESSMENT OF PATIENT S PAIN LEVEL AND EFFECTIVENESS OF PAIN MANAGEMENT REGIMEN. SKILLED NURSE TO INSTRUCT PATIENT/CAREGIVER REGARDING PHARMACOLOGIC AND NON-PHARMACOLOGIC PAIN CONTROL MEASURES. SKILLED NURSE TO REPORT TO PHYSICIAN IF PAIN LEVEL IS OUTSIDE OF ESTABLISHED PARAMETERS. [code = SKILLED NURSE FOR OBSERVATION AND ASSESSMENT OF PATIENT S PAIN LEVEL AND EFFECTIVENESS OF PAIN MANAGEMENT REGIMEN. SKILLED NURSE TO INSTRUCT PATIENT/CAREGIVER REGARDING PHARMACOLOGIC AND NON-PHARMACOLOGIC PAIN CONTROL MEASURES. SKILLED NURSE TO REPORT TO PHYSICIAN IF PAIN LEVEL IS OUTSIDE OF ESTABLISHED PARAMETERS.] Future Scheduled Test SKILLED NU RSE TO [...] CHANGES ASSOCIATED WITH DEPRESSIVE DISORDERS FOR EARLY INTERVENTION.] Future Scheduled Test SKILLED NU RSE TO INSTRUCT PATIENT/CAREGIVER ON CARE AND MANAGEMENT OF SUPRAPUBIC CATHETER. SKILLED NURSE FOR SUPRAPUBIC CATHETER INSERTION/MAINTENANCE UTILIZING 14FR 10 CC CATHETER VIA STERILE TECHNIQUE, CHANGE Q 4WKS AND PRN FOR LEAKING OR MALFUNCTIONING. IRRIGATE SUPRAPUBIC CATHETER WITH 30-60CC NORMAL SALINE PRN BLOCKAGE/LEAKAGE, HEAVY SEDIMENT. 1 - 3 PRN [facility] VISITS FOR CATHETER CHANGE(S) AND/OR TROUBLESHOOTING. [code = SKILLED NURSE TO INSTRUCT PATIENT/CAREGIVER ON CARE AND MANAGEMENT OF SUPRAPUBIC CATHETER. SKILLED NURSE FOR SUPRAPUBIC CATHETER INSERTION/MAINTENANCE UTILIZING 14FR 10 CC CATHETER VIA STERILE TECHNIQUE, CHANGE Q 4WKS AND PRN FOR LEAKING OR MALFUNCTIONING. IRRIGATE SUPRAPUBIC CATHETER WITH 30-60CC NORMAL SALINE PRN BLOCKAGE/LEAKAGE, HEAVY SEDIMENT. 1 - 3 PRN [facility] VISITS FOR CATHETER CHANGE(S) AND/OR TROUBLESHOOTING.] Future Scheduled Test SKILLED NU RSE TO INSTRUCT PATIENT/CAREGIVER ON S/S OF NEUROPATHY AND METHODS TO MANAGE. [code = SKILLED NURSE TO INSTRUCT PATIENT/CAREGIVER ON S/S OF NEUROPATHY AND METHODS TO MANAGE.] Future Scheduled Test SKILLED NU RSE TO REVIEW PATIENT MEDICATIONS (PRESCRIPTION/OTC). INSTRUCT PATIENT/CAREGIVER ON ALL MEDICATIONS INCLUDING PURPOSE, WHEN TO TAKE, IMPORTANCE OF MEDICATION ADHERENCE, MONITORING OF EFFECTIVENESS, ADVERSE DRUG REACTIONS, POSSIBLE SIDE EFFECTS, AND WHEN TO NOTIFY AGENCY OR PHYSICIAN/PROVIDER OF ANY CONCERNS. [code = SKILLED NURSE TO REVIEW PATIENT MEDICATIONS (PRESCRIPTION/OTC). INSTRUCT PATIENT/CAREGIVER ON ALL MEDICATIONS INCLUDING PURPOSE, WHEN TO TAKE, IMPORTANCE OF MEDICATION ADHERENCE, MONITORING OF EFFECTIVENESS, ADVERSE DRUG REACTIONS, POSSIBLE SIDE EFFECTS, AND WHEN TO NOTIFY AGENCY OR PHYSICIAN/PROVIDER OF ANY CONCERNS.] Future Scheduled Test SKILLED NU RSE FOR O/A, TEACHING AND MANAGEMENT OF URINARY TRACT INFECTION. [code = SKILLED NURSE FOR O/A, TEACHING AND MANAGEMENT OF URINARY TRACT INFECTION.] Goal 2025-05-01 Patient Goal - STAY HOME Goal 2025-06-23 Patient Goal - STAY HOME Goal 2025-06-30 Patient Goal - STAY HOME Goal 2025-08-14 Patient Goal - STAY HOME Goal Patient Goal - STAY HOME Goal Provider Goal - A PLAN OF CARE WILL BE ESTABLISHED THAT MEETS PATIENT'S [facility] NEEDS AND INCLUDES PATIENT GOAL FOR HOME HEALTH. Goal Provider Goal - URINE SPECIMEN WILL BE OBTAINED PRN FOR SIGNS AND SYMPTOMS OF UTI AND RESULTS WILL BE REPORTED TO PHYSICIAN THROUGHOUT THE CERTIFICATION PERIOD. Goal Provider Goal - PATIENT/CAREGIVER WILL VERBALIZE UNDERSTANDING OF GENITOURINARY DISEASE PROCESS, AND EXACERBATIONS OF GENITOURINARY DISEASE WILL BE PROMPTLY IDENTIFIED FOR EARLY INTERVENTION THROUGHOUT THE CERTIFICATION PERIOD. Goal Provider Goal - PATIENT/CAREGIVER WILL VERBALIZE/DEMONSTRATE MANAGEMENT OF RESPIRATORY DISEASE PROCESS. CHANGES IN RESPIRATORY STATUS WILL BE IDENTIFIED AND REPORTED TO PHYSICIAN FOR PROMPT INTERVENTION THROUGHOUT THE CERTIFICATION PERIOD. Goal Provider Goal - PATIENT/CAREGIVER WILL VERBALIZE/DEMONSTRATE UNDERSTANDING OF S/S OF INFECTION AND INFECTION CONTROL MEASURES. SIGNS AND SYMPTOMS OF INFECTION WILL BE IDENTIFIED AND PHYSICIAN NOTIFIED FOR PROMPT INTERVENTION THROUGHOUT THE CERTIFICATION PERIOD. Goal Provider Goal - PATIENT/CAREGIVER WILL VERBALIZE/DEMONSTRATE UNDERSTANDING OF SAFE PROVISION OF ADLS BY THE END OF THE CERTIFICATION PERIOD. Goal Provider Goal - BLOOD SUGAR READING WILL BE OBTAINED ORDERED THROUGHOUT CERTIFICATION PERIOD. Goal Provider Goal - PATIENT/CAREGIVER WILL VERBALIZE/DEMONSTRATE THE ABILITY TO MANAGE CIRCULATORY DISEASE PROCESS AND EXACERBATIONS WILL BE IDENTIFIED FOR EARLY INTERVENTION THROUGHOUT THE CERTIFICATION PERIOD. Goal Provider Goal - A PHYSICAL THERAPY EVALUATION TO BE COMPLETED WITH RECOMMENDATIONS AND/OR WRITTEN PLAN OF TREATMENT ESTABLISHED FOR PHYSICIAN S SIGNATURE. Goal Provider Goal - PATIENT/CAREGIVER WILL VERBALIZE/DEMONSTRATE UNDERSTANDING OF TEACHING RELATED TO ALTERED SKIN INTEGRITY Goal Provider Goal - PATIENT/CAREGIVER WILL VERBALIZE/DEMONSTRATE [...] Provider Goal - PATIENT/CAREGIVER WILL VERBALIZE/DEMONSTRATE EFFECTIVE ENVIRONMENTAL SAFETY AND FALL PREVENTION STRATEGIES, WILL REMAIN SAFE IN THE COMMUNITY, AND WILL BE FREE OF DANGER TO SELF AND OTHERS THROUGHOUT THE CERTIFICATION PERIOD. Goal Provider Goal - PATIENT/CAREGIVER WILL DEMONSTRATE UNDERSTANDING OF PHARMACOLOGIC AND NONPHARMACOLOGIC PAIN CONTROL MEASURES AND PATIENT WILL HAVE IMPROVEMENT IN PAIN INTERFERING WITH ACTIVITY EVIDENCED BY PAIN AT A LEVEL THAT IS ACCEPTABLE TO THE PATIENT AND PAIN LEVEL WITHIN ESTABLISHED PARAMETERS BY END OF CERTIFICATION PERIOD. Goal Provider [...] Goal - PATIENT/CAREGIVER WILL VERBALIZE S/S OF NEUROPATHY AND METHODS TO MANAGE BY END OF CERTIFICATION PERIOD. Goal Provider Goal - PATIENT/CAREGIVER WILL VERBALIZE UNDERSTANDING OF EDUCATION PROVIDED ON MEDICATIONS BY THE END OF THE CERTIFICATION PERIOD. Goal Provider Goal - PATIENT/CAREGIVER WILL VERBALIZE UNDERSTANDING OF URINARY TRACT INFECTION DISEASE PROCESS AND MANAGEMENT. PATIENT WILL BE FREE OF S/S OF UTI UPON COMPLETION OF TREATMENT OF UTI. Progress Notes Progress Notes <paragraph>[Visit Date: 2024 by JESSICA CAO RN]:</paragraph><paragraph>SNV 08/18/25</paragraph><paragraph></paragraph><paragraph>1. ABNORMAL FINDINGS/SIGNIFICANT CHANGES: FBS 89, REPORTS 6/10 PAIN TO BILATERAL LOWER EXTREMITY, +2 BILATERAL EDEMA</paragraph><paragraph></paragraph><paragraph>2. CARE COORDINATION DETAILS: NONE NEEDED THIS VISIT</paragraph><paragraph></paragraph><paragraph>3. SKILLED PROCEDURE PERFORMED THIS VISIT: NONE NEEDED THIS VISIT</paragraph><paragraph></paragraph><paragraph>4. NEXT PHYSICIAN/PROVIDER APPT: PCP 08/20/25, NEPHRO 09/25/25 </paragraph><paragraph></paragraph><paragraph>5. PLAN/FOLLOW-UP NEEDED FOR NEXT VISIT: SIGNS AND SYMPTOMS OF INFECTION, LOWER EXTREMITY EDEMA MANAGEMENT</paragraph><paragraph></paragraph><paragraph>ADDRESS ABOVE APPROPRIATE IN NARRATIVE BELOW: PATIENT ALERT ORIENTATED X3 IN [employer] REPORTS 6/10 PAIN TO BILATERAL LOWER EXTREMITY PATIENT WITH +2 LOWER EXTREMITIES EDEMA PATIENT EDUCATED ON ELEVATING LEGS ABOVE THE HEART TO HELP WITH EDEMA WHICH CAN CAUSE PAIN PATIENT VERBALIZED UNDERSTANDING PATIENT EDUCATED ON SIGNS AND SYMPTOMS OF INFECTION TO PREVENT ANY FUTURE SEPSIS PATIENT EDUCATED ON REPORTING ANY CLOUDINESS OR STRONG ODOR TO URINE TO NURSE PATIENT VERBALIZED UNDERSTANDING. PATIENT DENIES ANY FEVERS CHILLS NAUSEA VOMITING DIARRHEA ABNORMAL SHORTNESS OF BREATH CHEST PAIN NEW MEDICATIONS ED VISITS OR HOSPITALIZATIONS SINCE LAST VISIT. SN ASSESSMENT LUNGS NO WHEEZING OR CRACKLES, ABDOMEN SOFT NONTENDER BOWEL SOUNDS X4 LAST BOWEL MOVEMENT TODAY PATIENT DID REPORT OFF-AND-ON DIARRHEA BUT NONE TODAY PATIENT EDUCATED ON KEEPING HYDRATED TO PREVENT ANY FUTURE INFECTION WELL DEHYDRATION PATIENT VERBALIZED UNDERSTANDING. PATIENT EDUCATED ON CALLING [facility] FOR ANY CONCERNS OR CHANGE IN CONDITION WELL NEXT SN VISIT PATIENT VERBALIZED UNDERSTANDING AND AGREES WITH PLAN</paragraph> Encounters Start Date/Time End Date/Time Encounter Type Admission Type Attending [facility] Care Department Encounter ID Discharge Date Discharge Status Discharge Condition Discharge Reason Percent Goals Met 2025-07-05 00:00:00 2025-09-02 00:00:00 Outpatient RECERTIFIC SKYE [facility]OPE[facility] [id number] 30.00
== END 2025-08-20 12:10 | disposition home or self-care (01) ==
LOC: HO.HMCHD 11:21
PROVIDERS: PCP Family Medicine; Visit Provider Student in an Organized Health Care Education/Training Program
DX: N39.0 Urinary tract infection, site not specified (principal); J44.9 Chronic obstructive pulmonary disease, unspecified; Z99.81 Dependence on supplemental oxygen; I50.9 Heart failure, unspecified; E11.22 Type 2 diabetes mellitus with diabetic chronic kidney disease; N18.30 Chronic kidney disease, stage 3 unspecified; Z79.4 Long term (current) use of insulin; I12.9 Hypertensive chronic kidney disease with stage 1 through stage 4 chronic kidney disease, or unspecified chronic kidney disease; N18.4 Chronic kidney disease, stage 4 (severe); D50.8 Other iron deficiency anemias; Z76.89 Persons encountering health services in other specified circumstances

== ENCOUNTER → 2025-08-20 11:20 | Outpatient (BNVA) | payer MEDICARE, OTHER, SELFPAY | PROVIDERS: PCP Family Medicine; Visit Provider Student in an Organized Health Care Education/Training Program | DX: N39.0 Urinary tract infection, site not specified (principal); J44.9 Chronic obstructive pulmonary disease, unspecified; I11.0 Hypertensive heart disease with heart failure; I50.9 Heart failure, unspecified; E11.21 Type 2 diabetes mellitus with diabetic nephropathy; E11.22 Type 2 diabetes mellitus with diabetic chronic kidney disease; E11.42 Type 2 diabetes mellitus with diabetic polyneuropathy; N18.4 Chronic kidney disease, stage 4 (severe); D50.8 Other iron deficiency anemias; Z99.81 Dependence on supplemental oxygen; Z79.4 Long term (current) use of insulin; Z93.6 Other artificial openings of urinary tract status; Z96.0 Presence of urogenital implants; Z99.3 Dependence on wheelchair; Z76.89 Persons encountering health services in other specified circumstances; Z13.31 Encounter for screening for depression | CPT/HCPCS: 96127; 99202 ==